=== PATIENT | male | born 2005 | race Caucasian/White ===

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

== ENCOUNTER 2025-02-06 19:46 | Emergency (ER) | payer BC, SELFPAY ==
[2025-02-06] VITALS (11 sets, daily range): BP systolic 101–102; BP diastolic 65–68; PULSE 50–81; RESP 11–20; TEMP 36.4–36.9; O2SAT 97–98; BMI 18.6
--- NOTE | 2025-02-06 20:04 | EKG12_ITS ---
Test Reason : DYSRHYTHMIA Blood Pressure : */* mmHG Vent. Rate : 63 BPM Atrial Rate : 63 BPM P-R Int : 172 ms QRS Dur : 92 ms QT Int : 448 ms P-R-T Axes : 66 112 64 degrees QTcB Int : 458 ms Normal sinus rhythm Right axis deviation Incomplete right bundle branch block Abnormal ECG Confirmed by Kevin Cazares ([id number]), editor sound LACIE JOHN ([id number]) on 02/07/2025 1:30:56 PM Referred By: Confirmed By: Kevin Cazares
[2025-02-06 20:44] LABS: Hematocrit 41.9 % (40-54); Hemoglobin 14.6 g/dL (13.0-16.5); Immature Granulocytes Count 0.020 X10^3/uL (0.0-0.0); Mean Corp Hgb Conc 34.8 g/dL (32-36); Mean Corpuscular Volume 86.9 fL (80-94); Mean Platelet Vol. 9.7 fl (6.2-12.0); NRBC Flagged by Analyzer 0 % (0-5); Platelet Count 273 K/mm3 (150-450); RBC Distribution Width CV 11.7 % (11.6-14.6); RBC Distribution Width SD 37.4 fl (35.1-43.9); Red Blood Count 4.82 M/mm3 (4.6-6.2); White Blood Count 6.8 K/mm3 (4.4-11.0)
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
--- NOTE | 2025-02-06 21:12 | EX.ED.VIS.PS ---
HPI HPI - Psych History of Present Illness Chief Complaint: Overdose Informant: patient and parent Onset/Context/Timing Onset: Today Context: Gradual Onset Conflict: Family Current Severity: Moderate Maximum Severity: Moderate Associated Symptoms Associated Symptoms - Psych: Positive for Depressed and Suicidal Thoughts Specific plan (suicidal thought): Attempted overdose today. Narrative Narrative: 19-year-old male history of depression recently was admitted to [facility] earlier this month. Today got an argument with a family member. Said he was more depressed. He tried to overdose on 6 Zofran and about 9 trazodone about 3 hours ago. Around 6 PM. Denies any nausea or vomiting. Denies any prior overdose attempts. Prior similar symptoms: Yes Recent Illness/Hospitalization: Yes [facility] Medical History Depression Physical exam, pre-employment Home Medications ?Medication ?Instructions ?Recorded ?Last Taken ?Type sertraline 50 mg tablet 50 mg PO DAILY depressive disorder 02/06/25 Unknown History Allergy/AdvReac Type Severity Reaction Status Date / Time No Known Allergies Allergy Verified 02/06/25 19:51 Social History Smoking Status: Never smoker ROS ROS ED ROS Narrative No recent illness. Constitutional Constitutional ED: Denies chills or fever(s) Eyes Eyes: Denies blurry vision ENT ENT ED: Denies ear pain Cardiovascular Cardiovascular: Denies chest pain Respiratory/Chest Respiratory/Chest: Denies cough or dyspnea Gastrointestinal Gastrointestinal: Denies abdominal pain Genitourinary Genitourinary ED: Denies dysuria or hematuria Musculoskeletal Musculoskeletal: Denies arthralgias Integumentary Denies abscess Neurologic Neurologic: Denies headache(s) Psychiatric Psychiatric: Denies anxiety Endocrine Endocrinology: Denies polydipsia or polyphagia Hematologic/Lymphatic Hematologic/Lymphatic: Denies easy bleeding, easy bruising or lymphadenopathy Allergic/Immunologic Allergic/Immunologic ED: Denies mouth swelling, tongue swelling or urticaria EXAM Physical Exam Narrative Exam Narrative: 19-year-old male sitting upright in bed. Vital signs stable afebrile. No acute distress. Dad at bedside. H EENT exam pupils round react light. Moist mucous membranes. No trauma. Neck nontender. No trauma. No lymphadenopathy. Back nontender. Lungs clear to auscultation bilaterally. Heart regular rhythm no murmur. Chest wall ribs nontender. Abdomen soft nontender. Moving all 4 extremities. No track morris. Normal program/music director strength. Normal dorsi plantarflexion. No trauma. Nontender. Normal range of motion. Neurologically is awake alert. Answer questions following commands. Const Vital Signs: 02/06/25 19:48 02/06/25 20:57 02/06/25 21:00 Temperature 98.4 F Temperature Source Oral Pulse Rate 81 68 64 Respiratory Rate 16 19 H 14 Blood Pressure 102/68 Blood Pressure Mean 79 Pulse Ox 97 Oxygen Delivery Method Room Air 02/06/25 21:15 02/06/25 21:30 02/06/25 21:45 Temperature Temperature Source Pulse Rate 62 52 L 51 L Respiratory Rate 14 18 18 Blood Pressure Blood Pressure Mean Pulse Ox Oxygen Delivery Method 02/06/25 22:00 02/06/25 22:15 02/06/25 22:30 Temperature Temperature Source Pulse Rate 68 50 L 80 Respiratory Rate 19 H 20 H 11 L Blood Pressure Blood Pressure Mean Pulse Ox Oxygen Delivery Method 02/06/25 22:45 02/06/25 22:56 Temperature 97.6 F L Temperature Source Pulse Rate 60 64 Respiratory Rate 13 18 Blood Pressure 101/65 101/65 Blood Pressure Mean 77 77 Pulse Ox 98 Oxygen Delivery Method Positive well nourished and well developed; Negative for obese, cachectic, contractures or unkempt General Appearance ED: well developed and NAD; Negative for unkempt, cachectic, contractures or pallor Nutritional Appearance: Negative for cachectic or obese HEENT Reports moist mucous membranes normocephalic and atraumatic Eyes PERRL and EOMs intact bilaterally Neck no lymphadenopathy, supple and no JVD General: Negative for tenderness Resp normal respiratory effort and clear to auscultation bilaterally Cardio S1 normal heart sound, S2 normal heart sound and no murmurs Rate: regular rate Rhythm: regular rhythm GI non-tender, non-distended and no masses Auscultation: normoactive bowel sounds Palpation: soft; Negative for tender or guarding Back/Spine no CVA tenderness General Back: Negative for CVA tenderness Cervical Spine: Negative for cervical spine tenderness Thoracic Spine / Upper Back: Negative for thoracic spinal tenderness Lumbar Spine / Lower Back: Negative for lumbar spinal tenderness Extremity normal to inspection General Extremety ED: Negative for edema or tenderness General Extremity: Negative for edema Neuro oriented x3, CN's II-XII intact bilaterally and no sensory deficits noted Sensorium / Orientation: alert, oriented to person, oriented to place and oriented to time Motor Exam: strength 5/5 throughout Psych mental status grossly normal, thought process normal, cooperative, speech normal, activity/motor behavior normal, denies hallucinations and denies homicidal ideation; Negative for denies suicidal ideation Appearance: grossly normal; Negative for unkempt Attitude: calm and engaged Activity / Motor Behavior: appropriate eye contact Speech: normal speech Mood & Affect: depressed Thought Process: normal thought process Thought Content: suicidality Attention / Concentration: attention grossly intact Memory / Cognition: memory grossly intact Insight: insight good Judgement: judgement good Skin General Skin Exam: Negative for jaundice or pallor Lesions: no lesions Rashes: no rashes MDM MDM MDM Narrative Medical decision making narrative: 19-year-old male history of depression and recent psychiatric admission. Nani attempted overdose on Zofran trazodone 3 hours ago. He is medically stable. ED mental health workup. And eventual admission for psychiatric care. Our high school social studies teacher is already seen him. She agrees with the admission. Repeat exam patient is doing well at 11 PM. Transfer is coming to take him to psychiatric facility for admission. Vital signs are stable and afebrile. His current blood pressure is 101/65 with a heart rate of 64. History & Record Review Discussion w/independent historian: Patient and Family Additional record(s) reviewed:: Prior inpatient record, Prior outpatient record, Prior ED visit and Prior labs Lab Data Attestation: I reviewed the patient's lab results. Lab results narrative: CBC shows a white count of 6. H&H 14 and 41. Platelets 273. Chemistries show gap 14. Normal BUN and creatinine. Glucose 109. Salicylates less than 0.5. Tox screen negative except positive for possible cannabis. Acetaminophen 14. Alcohol negative. Labs: Laboratory Results - last 24 hr 02/06/25 02/06/25 19:25 20:25 WBC 6.8 RBC 4.82 Hgb 14.6 Hct 41.9 MCV 86.9 MCH 30.3 MCHC 34.8 RDW Std Deviation 37.4 RDW Coeff of Elena 11.7 Plt Count 273 MPV 9.7 Immature Gran % (Auto) 0.300 Neut % (Auto) 71.7 H Lymph % (Auto) 19.4 [place] % (Auto) 6.9 Eos % (Auto) 1.0 Baso % (Auto) 0.7 Absolute Neuts (auto) 4.9 Absolute Lymphs (auto) 1.31 Nucleated RBC % 0 Sodium 139 Potassium 3.7 Chloride 103 Carbon Dioxide 22.4 Anion Gap 14 BUN 9 Creatinine 0.92 Estim Creat Clear Calc 113.07 Est GFR (MDRD) Non-Af 122 BUN/Creatinine Ratio 9.8 L Glucose 109 H Calcium 9.4 Salicylates < 0.5 L Urine Opiates Screen NEGATIVE U Buprenorphine Qual NEGATIVE Ur Oxycodone Screen NEGATIVE Urine Methadone Screen NEGATIVE Urine Fentanyl Screen NEGATIVE Acetaminophen 14.8 Ur Barbiturates Screen NEGATIVE Ur Phencyclidine Scrn NEGATIVE Ur Amphetamines Screen NEGATIVE U Benzodiazepines Scrn NEGATIVE Urine Cocaine Screen NEGATIVE U Cannabinoids Screen PRESUMPTIVE POSITIVE Ethyl Alcohol < 10.1 Rhythm Strip Rhythm Strip: Sinus Rhythm Rate: 63 Ectopy: None EKG Initial EKG: Attestation: I personally reviewed and interpreted this EKG as follows: Interpretation: Sinus Rhythm and No Acute Injury Pattern Comments: Normal sinus rhythm rate of 63 no acute signs of [place] or ischemia. Discharge Plan Triage Chief Complaint: Overdose Other Complaint: Suicidal ED Provider: Yifan Wills Dx/Rx/DC Orders Clinical Impression: Depression, Depression with suicidal ideation, Overdose Prescriptions: No Action sertraline 50 mg tablet 50 mg PO DAILY Primary Care Provider: Care Physician,No Primary Referrals: Birdie Martinez MD [Non-Staff] - Print Language: Divehi Disposition Disposition: Psychiatric Hospital or Unit
[2025-02-06 21:20] LABS: Barbiturate Urine NEGATIVE (< 200 ng/mL); Benzodiazepine Urine NEGATIVE (< 200 ng/mL); PCP Urine NEGATIVE (< 25 ng/mL); THC Urine PRESUMPTIVE POSITIVE (< 50 ng/mL)
[2025-02-06 21:20] LABS: Acetaminophen (Tylenol) Level 14.8 ug/mL (8.0-19.0); Alcohol, Blood (Medical)-Serum < 10.1 mg/dL (<=10.0); Salicylate < 0.5 mg/dL (2.8-20.0)
[2025-02-06 21:21] LABS: Anion Gap 14 (5-15); BUN 9 mg/dL (4-19); BUN/Creat Ratio 9.8 RATIO (10-20); Calcium,Total 9.4 mg/dL (7.6-11.0); Carbon Dioxide 22.4 mmol/L (21.0-32.0); Chloride 103 mmol/L (98-108); Estimated Creatinine Clearance 113.07 ml/min (50-250); Glucose 109 mg/dL (70-99); Potassium 3.7 mmol/L (3.3-5.1)
--- OUTSIDE RECORDS SUMMARY | 2025-02-06 21:37 | XMS RPT_ITS | CCD ---
Author Organization [facility] Inform ion Partnership [facility] [place] Care Team Providers Care Direct Mail Clerk Name Role Phone Birdie Martinez Primary Care Provider [phone] DARLIN HODGES Primary Care Unavailable REFERRED, SELF Referring Unavailable HERBERT BAHENA Attending Unavailable BIRDIE MARTINEZ Attending Unavailable REFERRED, SELF Referring Unavailable DARLIN HODGES Primary Care Unavailable Birdie Martinez MD Primary Care Provider Birdie Martinez MD Primary Care Provider [phone] Aj Martin Attending Unavailable Birdie Martinez Referring Unavailable Birdie Martinez Primary Care Unavailable Birdie Martinez Referring Unavailable Birdie Martinez Primary Care Unavailable Aj Martin Attending Unavailable JULI Graff, EBNY Attending Unavailable BRYCE CRUZ Referring Unavailable BIRDIE MARTINEZ Primary Care Unavailable BRYCE CRUZ Referring Unavailable BIRDIE MARTINEZ Primary Care Unavailable BRYCE CRUZ Referring Unavailable BIRDIE MARTINEZ Primary Care Unavailable BIRDIE MARTINEZ Primary Care Unavailable BIRDIE MARTINEZ Primary Care Unavailable ANN SIEGEL Referring Unavailable BIRDIE MARTINEZ Primary Care Unavailable BIRDIE MARTINEZ Primary Care Unavailable BIRDIE MARTINEZ Primary Care Unavailable JULI Graff, BENY Referring Unavailable BIRDIE MARTINEZ Primary Care Unavailable JULI Graff, BENY Attending Unavailable BIRDIE MARTINEZ Primary Care Unavailable JULI Graff, BENY Referring Unavailable BIRDIE MARTINEZ Primary Care Unavailable JULI Graff, BENY Attending Unavailable JULI Graff, BENY Referring Unavailable BIDRIE MARTINEZ Primary Care Unavailable Nithin Galvin MD Emergency Provider Care Physician, No Primary Primary Care Provider Unavailable Nithin Galvin Attending Unavailable Care Physician, No Primary Primary Care Unava ilable Medications Current Medications Medication Drug Class(es) Dates Sig (Normalized) Sig (Original) [id number] 200 actuat albuterol 0.09 mg/actuat metered dose inhaler (1 source) beta2-Adrenergic Agonist Start: 07-26-2019 End: 03-17-2022 take 2 puff(s) by inhalation every four hours as needed albuterol HFA (PROVENTIL HFA, VENTOLIN HFA) 90 mcg/actuation inhaler Indications: Bronchitis Inhale 2 Puffs as instructed every 4 hours as needed. 1 Inhaler 0 07/26/2019 03/17/2022 Discontinued Comment on above: Inhale 2 Puffs as in structed every 4 hours as needed. amoxicillin 875 mg oral tablet (1 source) Penicillin-class Antibacterial Start: 05-24-2024 End: 06-03-2024 take 1 tablet by mouth twice daily amoxicillin (AMOXIL) 875 mg tablet Indications: Acute otitis media, left Take 1 tablet by mouth two times a day for 10 days. 20 tablet 05/24/2024 06/03/2024 Active brompheniramine maleate 0.4 mg/ml / dextromethorphan hydrobromide 2 mg/ml / pseudoephedrine hydrochloride 6 mg/ml oral solution (1 source) alpha-Adrenergic Agonist, Uncompetitive P-uxrmwz-H-aspartat e Receptor Antagonist, Sigma-1 Agonist Start: 05-24-2024 take 10 mL by mouth every eight hours as needed Brompheniramine-P seudoeph-DM (BROMFED DM) 2-30-10 mg/5 mL syrup Indications: Viral upper respiratory tract infection with cough Take 10 mL by mouth every 8 hours as needed. 118 mL 05/24/2024 Active fluticasone propionate 0.05 mg/actuat metered dose nasal spray (1 source) Corticosteroid Start: 05-24-2024 take 2 spray(s) by mouth once daily fluticasone (FLONASE) 50 mcg/actuation nasal spray Indications: Viral upper respiratory tract infection with cough Use 2 Sprays in each nostril once daily. Rinse mouth after use. 9.9 mL 05/24/2024 Active Completed/Discontinued Medications Medication Drug Class(es) Dates Sig (Normalized) Sig (Original) cephalexin 500 mg oral capsule (14 sources) Cephalosporin Antibacterial Start: 03-18-2022 End: 05-24-2024 take 1 capsule by mouth three times daily cephALEXin (KEFLEX) 500 mg capsule Indications: Foreign body (FB) in soft tissue Take 1 capsule by mouth three times daily. 21 capsule 03/18/2022 05/24/2024 Discontinued Comment on above: Take [facility]. naproxen 500 mg oral tablet (5 sources) Nonsteroidal Anti-inflammatory Drug Start: 10-12-2023 End: 05-24-2024 take 1 tablet by mouth twice daily as needed for pain naproxen (NAPROSYN) 500 mg tablet Indications: Pain, dental Take 1 tablet by mouth two times a day as needed for pain (for pain/inflammation) for up to 20 doses. Take with food. 20 tablet 10/12/2023 05/24/2024 Discontinued Comment on above: Take 1 tablet by tim two times a day as needed for pain (for pain/inflammation) for up to 20 doses. Take with food. Problems Active Problems Problem Classification Problem Date Documented Da te Episodic/Chronic Disorders of teeth and jaw (1 source) Toothache; Translations: [Other specified disorders of teeth and supporting structures] 10-12-2023 Episodic Headache; including migraine (2 sources) Headache; Translations: [Headache, unspecified headache type] 04-06-2024 Episodic Headache; including migraine (1 source) Headache; including migraine; Translations: [Headache, unspecified headache type] Onset: 04-06-2024 Open wounds of extremities (2 sources) Puncture wound of left foot; Translations: [Puncture wound without foreign body, left foot, initial encounter] Episodic Other connective tissue disease (1 source) Foreign body; Translations: [Residual foreign body in soft tissue] Episodic Other injuries and conditions due to external causes (1 source) Thumb injury ; Translations: [Unspecified injury of right wrist, hand and finger(s), initial encounter] Episodic Other injuries and conditions due to external causes (1 source) Injury of left wrist; Translations: [Unspecified injury of left wrist, hand and finger(s), initial encounter] 08-04-2023 Episodic Other injuries and conditions due to external causes (1 source) Injury of left ankle; Translations: [Unspecified injury of left ankle, initial encounter] 08-04-2023 Episodic Other upper respiratory infections (3 sources) Sore throat symptom; Translations: [Acute pharyngitis, unspecified] 04-06-2024 Episodic Otitis media and related conditions (1 source) Acute left otitis media; Translations: [Otitis media, unspecified, left ear] 05-24-2024 Episodic Suicide and intentional self-inflicted injury (1 source) Suicidal ideations; Translations: [Suicidal ideations] Onset: 01-25-2025 Episodic Past or Other Problems Problem Classification Problem Date Documented Date Episodic/Chronic Administrative/social admission (1 source) Encounter for pre-employment examination; Translations: [Encounter for pre-employment examination] Onset: 01-27-2024 Episodic Fracture of upper limb (6 sources) Closed fracture distal radius, intra-articular, -punch; Translations: [Other intraarticular fracture of lower end of left radius, subsequent encounter for closed fracture with routine healing] Onset: 08-07-2023 08-28-2023 Episodic Other injuries and conditions due to external causes (1 source) Unspecified injury of left ankle, initial encounter; Translations: [Left ankle injury, initial encounter] Onset: 08-04-2023 Episodic Other injuries and conditions due to external causes (1 source) Unspecified injury of left wrist, hand and finger(s), initial encounter; Translations: [Wrist injury, left, initial encounter] Onset: 08-04-2023 Episodic Results Test Name Value Interpretation Reference Range Facility Absolute lymphocyte countOrd ered By: Nithin Galvin on 01-17-2025 Lymphocytes Auto (Unsp spec) [#/Vol] 1.33 10*3/uL 0.83-4.51 [facility] Absolute neutrophil countOrd ered By: Nithin Galvin on 01-17-2025 Neutrophils (Bld) [#/Vol] 2.5 10*3/uL 2.0-7.7 [facility] Alcohol, Blood (Medical)-Ser umon 01-17-2025 SERUM ETOH < 10.1 Normal <=10.0 [facility] Comment on above: Result Comment: This test is for medical purposes only. The legal definition of intoxication varies according to local law. Performed By: #### L 500.4050, L100.0100, L501.9100, L505.5000 #### [facility] [address] [place], [place] [address]. [place], [place], [id number] Amphetamine detection with 1 000 ng/mL as cutoffOrdered By: Nithin Galvin on 01-17-2025 Amphetamines Screen method >1000 ng/mL Ql (U) Negative < 200 ng/mL [facility] Anion gap in Serum or Plasma Ordered By: Nithin Galvin on 01-17-2025 Anion gap [Moles/Vol] 13 mmol/L 5- [facility] Automated lymphocyte count a s percentage of total leukocytesOrdered By: Nithin Galvin on 01-17-2025 Lymphocytes/100 WBC Auto (Unsp spec) 30.2 % - [facility] BUN/creatinine ratioOrdered By: Nithin Galvin on 01-17-2025 Urea nitrogen/Creatinine [Mass ratio] 11.4 mg/mg 10- [facility] Basophil percentageOrdered B y: Nithin Galvin on 01-17-2025 Basophils/100 WBC (Bld) 1.1 % High 0-1 [facility] Bilirubin, totalOrdered By: Nithin Galvin on 01-17-2025 Bilirubin [Mass/Vol] 1.86 mg/dL High 0.00-1.30 [facility] CBC W/Diff, Automatedon Absolute Lymph 1.33 X10 3/uL Normal 0.83-4.51 [facility] Comment on above: Performed By: #### L 500.4050, L100.0100, L501.9100, L505.5000 #### [facility] [address] [facility] [address] Absolute Neut 2.5 X10 3/uL Normal 2.0-7.7 [facility] Comment on above: Performed By: #### L 500.4050, L100.0100, L501.9100, L505.5000 #### [facility] [address] [place], [address] Basophils/100 WBC (Bld) 1.1 % High 0-1 [facility] Comment on above: Performed By: #### L 500.4050, L100.0100, L501.9100, L505.5000 #### [facility] [address] [place], [address] Eosinophils/100 WBC (Bld) 0.9 % Normal 0-5 [facility] Comment on above: Performed By: #### L 500.4050, L100.0100, L501.9100, L505.5000 #### [facility] [address] [place], [address] Erythrocyte distribution width (RBC) [Ratio] 11.7 % Normal 11.6-14.6 [facility] Comment on above: Performed By: #### L 500.4050, L100.0100, L501.9100, L505.5000 #### [facility] [address] [place], [address] Hematocrit (Bld) [Volume fraction] 45.3 % Normal 40-54 [facility] Comment on above: Performed By: #### L 500.4050, L100.0100, L501.9100, L505.5000 #### [facility] [address] [place], [address] Hemoglobin (Bld) [Mass/Vol] 15.6 g/dL Normal 13.0-16.5 [facility] Comment on above: Performed By: #### L 500.4050, L100.0100, L501.9100, L505.5000 #### [facility] [address] [place], [address] IG% 0.500 Normal 0.0-0.9 [facility] Comment on above: Result Comment: IG% - Immature Granulocytes (promyelocytes, myelocytes and metamyelocytes) > 1% indicates that a LEFT SHIFT is Present. Performed By: #### L 500.4050, L100.0100, L501.9100, L505.5000 #### [facility] [address] [place], [address] Lymphocytes/100 WBC (Bld) 30.2 % Normal 19-41 [facility] Comment on above: Performed By: #### L 500.4050, L100.0100, L501.9100, L505.5000 #### [facility] [address] [place], [address] MCH (RBC) [Entitic mass] 30.4 pg Normal 27.0-32.0 [facility] Comment on above: Performed By: #### L 500.4050, L100.0100, L501.9100, L505.5000 #### [facility] [address] [place], [address] MCHC (RBC) [Mass/Vol] 34.4 g/dL Normal 32-36 [facility] Comment on above: Performed By: #### L 500.4050, L100.0100, L501.9100, L505.5000 #### [facility] [address] [place], [address] MCV (RBC) [Entitic vol] 88.1 fL Normal 80-94 [facility] Comment on above: Performed By: #### L 500.4050, L100.0100, L501.9100, L505.5000 #### [facility] [address] [place], [address] Monocytes/100 WBC (Bld) 10.4 % High 0-10 [facility] Comment on above: Performed By: #### L 500.4050, L100.0100, L501.9100, L505.5000 #### [facility] [address] [place], [address] Neutrophils/100 WBC (Bld) 56.9 % Normal 47-70 [facility] Comment on above: Performed By: #### L 500.4050, L100.0100, L501.9100, L505.5000 #### [facility] [address] [place], [address] Nucleated RBC (Bld) [#/Vol] 0 10*3/uL Normal 0-5 [facility] Comment on above: Performed By: #### L 500.4050, L100.0100, L501.9100, L505.5000 #### [facility] [address] [place], [address] Platelet mean volume (Bld) [Entitic vol] 9.5 fL Normal 6.2-12.0 [facility] Comment on above: Performed By: #### L 500.4050, L100.0100, L501.9100, L505.5000 #### [facility] [address] [place], [address] Platelets (Bld) [#/Vol] 241 10*3/uL Normal 150-450 [facility] Comment on above: Performed By: #### L 500.4050, L100.0100, L501.9100, L505.5000 #### [facility] [address] [place], [address] RBC (Bld) [#/Vol] 5.14 10*6/uL Normal 4.6-6.2 [facility] Comment on above: Performed By: #### L 500.4050, L100.0100, L501.9100, L505.5000 #### [facility] [address] [place], [address] RDW SD 37.8 fl Normal 35.1-43.9 [facility] Comment on above: Performed By: #### L 500.4050, L100.0100, L501.9100, L505.5000 #### [facility] [address] [place], [address] WBC (Bld) [#/Vol] 4.4 10*3/uL Normal 4.4-11.0 [facility] Comment on above: Performed By: #### L 500.4050, L100.0100, L501.9100, L505.5000 #### [facility] [address] [place], [address] Carbon dioxide, total [Moles /volume] in Central venous bloodOrdered By: Nithin Galvin on 01-17-2025 CO2 [Moles/Vol] 24.2 mmol/L 21.0-32.0 [facility] Chloride assayOrdered By: Koffi Galvin on 01-17-2025 Chloride [Moles/Vol] 99 mmol/L 98-108 [facility] Comprehensive Metabolic Prof ilon 01-17-2025 Albumin [Mass/Vol] 4.9 g/dL Normal 3.5-5.0 [facility] Comment on above: Performed By: #### L 500.4050, L100.0100, L501.9100, L505.5000 #### [facility] [address] [place], [address] Albumin/Globulin [Mass ratio] 1.8 {ratio} Normal 0.9-2.4 [facility] Comment on above: Performed By: #### L 500.4050, L100.0100, L501.9100, L505.5000 #### [facility] [address] [place], [address] ALK PHOS 72 U/L Normal 40-129 [facility] Comment on above: Performed By: #### L 500.4050, L100.0100, L501.9100, L505.5000 #### [facility] [address] [place], [address] ALT [Catalytic activity/Vol] U/L Normal <=46 [facility] Comment on above: Performed By: #### L 500.4050, L100.0100, L501.9100, L505.5000 #### [facility] [address] [place], [address] AST [Catalytic activity/Vol] 17 U/L Normal <=37 [facility] Comment on above: Performed By: #### L 500.4050, L100.0100, L501.9100, L505.5000 #### [facility] [address] [place], [address] Bilirubin [Mass/Vol] 1.86 mg/dL High 0.00-1.30 [facility] Comment on above: Performed By: #### L 500.4050, L100.0100, L501.9100, L505.5000 #### [facility] [address] [place], [address] BUN/CRE 11.4 RATIO Normal 10-20 [facility] Comment on above: Performed By: #### L 500.4050, L100.0100, L501.9100, L505.5000 #### [facility] [address] [place], [address] Calcium [Mass/Vol] 9.3 mg/dL Normal 7.6-11.0 [facility] Comment on above: Performed By: #### L 500.4050, L100.0100, L501.9100, L505.5000 #### [facility] [address] [place], [address] Chloride [Moles/Vol] 99 mmol/L Normal 98-108 [facility] Comment on above: Performed By: #### L 500.4050, L100.0100, L501.9100, L505.5000 #### [facility] [address] [place], [address] CO2 [Moles/Vol] 24.2 mmol/L Normal 21.0-32.0 [facility] Comment on above: Performed By: #### L 500.4050, L100.0100, L501.9100, L505.5000 #### [facility] [address] [place], [address] Creatinine [Mass/Vol] 1.02 mg/dL Normal 0.70-1.20 [facility] Comment on above: Performed By: #### L 500.4050, L100.0100, L501.9100, L505.5000 #### [facility] [address] [place], [address] ECRCL 104.58 ml/min Normal 50-250 [facility] Comment on above: Performed By: #### L 500.4050, L100.0100, L501.9100, L505.5000 #### [facility] [address] [place], [address] GAP 13 Normal 5-15 [facility] Comment on above: Performed By: #### L 500.4050, L100.0100, L501.9100, L505.5000 #### [facility] [address] [place], [address] GFR/1.73 sq M.predicted among non-blacks MDRD (S/P/Bld) [Vol rate/Area] 108 mL/min/{1.73_m2} Normal >60 [facility] Comment on above: Result Comment: mL/m in/1.73m2 CKD-EPI Creatinine Equation (2020) Performed By: #### L 500.4050, L100.0100, L501.9100, L505.5000 #### [facility] [address] [place], [address] Globulin (S) [Mass/Vol] 2.8 g/dL Normal 2.2-4.2 [facility] Comment on above: Performed By: #### L 500.4050, L100.0100, L501.9100, L505.5000 #### [facility] [address] [place], [address] Glucose [Mass/Vol] 86 mg/dL Normal 70-99 [facility] Comment on above: Performed By: #### L 500.4050, L100.0100, L501.9100, L505.5000 #### [facility] [address] [place], [address] Potassium [Moles/Vol] 4.0 mmol/L Normal 3.3-5.1 [facility] Comment on above: Performed By: #### L 500.4050, L100.0100, L501.9100, L505.5000 #### [facility] [address] [place], [address] Sodium [Moles/Vol] 136 mmol/L Normal 133-145 [facility] Comment on above: Performed By: #### L 500.4050, L100.0100, L501.9100, L505.5000 #### [facility] [address] [place], [address] T PROT 7.6 g/dL Normal 5.9-8.4 [facility] Comment on above: Performed By: #### L 500.4050, L100.0100, L501.9100, L505.5000 #### [facility] [address] [place], [address] Urea nitrogen [Mass/Vol] 12 mg/dL Normal 4-19 [facility] Comment on above: Performed By: #### L 500.4050, L100.0100, L501.9100, L505.5000 #### [facility] [address] [place], [address] Emergency Department Summary on 01-17-2025 Emergency Department Summary [facility] Medical Records Department [address] [place] [address] Emergency Department Summary 01/17/25 MR#: [id number] Acct: [id number] Name: KETAN STEWART Rep #: [id number] : 2005 19 From: Nithin Galvin MD PCP: Care Physician,No Primary Status:REG ER Location: ED ADDENDUM by Dr. Nithin Galvin MD on 01/17/25 at 1715 I was informed that the patient has been accepted at [facility]. Patient will be transferred in stable condition. 01/17/25 1715 Cosigner Signature (if applicable): cc: No Primary Care Physician * Signed HPI HPI - Psych History of Present Illness Chief Complaint: Suicidal Narrative Narrative: 19-year-old male past medical history of depression and anxiety, not on medication, presents with his father because of increasing suicidal ideation. He relates this to a break-up that he had with his girlfriend recently. He was moving his things out of the house as he lived with her previously and is currently living with his grandmother. He states he saw something on her telephone which upset him. He has not been able to stop thinking about it. According to his dad, they called a primary care provider but he was unable to be seen because the patient had called him on Thursday, approximately 2 days ago, and he states that he was having thoughts of hurting himself. Additionally, patient relates history that about a month ago, he was upset and took more ibuprofen than he was supposed to. He has partial custody of his son and he was with him over the last 2 days, when the patient stated that he would not hurt himself while he had his son but was unsure what he might do when his son was not with him. He presents because of increasing suicidal ideation. Father reports that they called the counseling center, but he would not be able to be seen for at least 2 weeks. Patient states that he is having increasing thoughts of suicide, and while does not have a specific plan, that he would hurt himself in any way that he could. PFSH PFS Medical History Mental health problem Home Medications ???Medication ???Instructions ???Recorded ???Last Taken ???Type NK 01/17/25 Unknown History Allergy/AdvReac Type Severity Reaction Status Date / Time No Known Allergies Allergy Verified 01/17/25 12:03 Social History Smoking Status: Never smoker ROS ROS ED ROS Narrative Review of systems positive for increasing suicidal ideation, no specific plan. No somatic symptoms, no fevers or chills, no cough, no nausea or vomiting. Increasing depression. EXAM Physical Exam Narrative Exam Narrative: Afebrile. Vital signs noted. Nontoxic-appearing. Cardiovascular examination reveals mild bradycardia. Lungs clear to auscultation bilaterally. Abdomen is soft, nontender, without guarding or rebound. Positive bowel sounds. Neurological examination is nonfocal, nonlateralizing. Psychiatric examination shows he has more of a depressed, flat affect with thoughts of suicide but no specific plan. No internal stimulation, no active hallucinations. Const Vital Signs: 01/17/25 12:03 Temperature 97.1 F L Temperature Source Temporal Pulse Rate 51 L Respiratory Rate 14 Blood Pressure 130/70 H Blood Pressure Mean 90 Pulse Ox 100 Oxygen Delivery Method Room Air MDM MDM MDM Narrative Medical decision making narrative: Differential diagnosis includes but not limited to depression with suicidal thoughts versus suicidal ideation with plan. Medical clearance labs were obtained. I reviewed his laboratory work and they are grossly unremarkable including CBC and CMP except for total bili slightly elevated at 1.86 which I think is nonspecific and cannabinoids presumptive positive, but he states that he did use marijuana recently. Ethyl alcohol negative at less than 10.1. At this point in time, I feel he is medically cleared for evaluation. He may require admission as he states last time he took ibuprofen as an overdose but was never evaluated. He denies any previous hospitalization in a psychiatric facility. I reviewed his laboratory work and he has normal white count 4.4 with hemoglobin normal at 15.6, hematocrit 45.3. I do feel that he is medically cleared for evaluation by case management. In discussion with them, it was felt that given his increased suicidality, and his threats that he is unsure as to what would happen now that he does not have his son with him, they recommended placement. He is currently pending placement at psychiatric facility and will be signed out to the oncoming physician to ensure transfer. Patient is in stable condition. History Record Review Discussion w/independent historian: Patient and Fami (more content not included)... Normal [facility] Eosinophil percentageOrdered By: Nithin Galvin on 01-17-2025 Eosinophils/100 WBC (Bld) 0.9 % 0-5 [facility] Erythrocyte distribution wid th ratioOrdered By: Nithin Galvin on 01-17-2025 Erythrocyte distribution width (RBC) [Ratio] 11.7 % 11.6-14.6 [facility] Erythrocyte distribution wid th standard deviationOrdered By: Nithin Galvin on 01-17-2025 Erythrocyte distribution width (RBC) [Ratio] 37.8 fl 35.1-43.9 [facility] Glomerular filtration rate ( GFR) estimation/1.73 sq m using serum, plasma, or whole bOrdered By: Nithin Galvin on 01-17-2025 GFR/1.73 sq M.predicted among non-blacks MDRD (S/P/Bld) [Vol rate/Area] 108 mL/min/{1.73_m2} >60 [facility] Comment on above: mL/min/1.73m2 CKD-EP I Creatinine Equation (2020) Hematocrit Auto (Bld) [Volum e fraction]Ordered By: Nithin Galvin on 01-17-2025 Hematocrit (Bld) [Volume fraction] 45.3 % 40-54 [facility] Hemoglobin measurementOrdere d By: Nithin Galvin on 01-17-2025 Hemoglobin (Bld) [Mass/Vol] 15.6 g/dL 13.0-16.5 [facility] Immature granulocytes/100 WB C Auto (Bld)Ordered By: Nithin Galvin on 01-17-2025 Immature granulocytes/100 WBC (Bld) 0.500 % 0.0-0.9 [facility] Comment on above: IG% - Immature Granu locytes (promyelocytes, myelocytes and metamyelocytes) > 1% indicates that a LEFT SHIFT is Present. Laboratory - Chemistry and C hemistry - challengeOrdered By: Nithin Galvin on 01-17-2025 AST [Catalytic activity/Vol] 17 U/L <38 [facility] MCV (mean corpuscular volume ) determinationOrdered By: Nithin Galvin on 01-17-2025 MCV (RBC) [Entitic vol] 88.1 fL 80-94 [facility] Mean corpuscular hemoglobin (MCH) determinationOrdered By: Nithin Galvin on 01-17-2025 MCH (RBC) [Entitic mass] 30.4 pg 27.0-32.0 [place] Mean corpuscular hemoglobin concentration (MCHC) determinationOrdered By: Nithin Galvin on 01-17-2025 MCHC (RBC) [Mass/Vol] 34.4 g/dL 32-36 [facility] Mean platelet volume determi nationOrdered By: Nithin Galvin on 01-17-2025 Platelet mean volume (Bld) [Entitic vol] 9.5 fL 6.2-12.0 [place] Monocyte percentageOrdered B y: Nithin Galvin on 01-17-2025 Monocytes/100 WBC (Bld) 10.4 % High 0-10 [facility] Neutrophil percentageOrdered By: Nithin Galvin on 01-17-2025 Neutrophils/100 WBC (Bld) 56.9 % 47-70 [place] No Panel InformationOrdered By: Nithin Galvin on 01-17-2025 Urine Buprenorphine Qualitative Negative < 200 ng/mL [place] Urine Oxycodone Screen Negative < 100 ng/mL [facility] Nucleated red blood cell per centageOrdered By: Nithin Galvin on 01-17-2025 Nucleated RBC/100 WBC (Bld) [Ratio] 0 % 0-5 [place] Platelet countOrdered By: Koffi Galvin on 01-17-2025 Platelets (Bld) [#/Vol] 241 10*3/uL 150-450 [place] Potassium measurement (mass/ volume)Ordered By: Nithin Galvin on 01-17-2025 Potassium (Unsp spec) [Mass/Vol] 4.0 mmol/L 3.3-5.1 [place] Quantitative urine opiates m easurementOrdered By: Nithin Galvin on 01-17-2025 Opiates Ql (U) Negative < 300 ng/mL [place] RBC Auto (Bld) [#/Vol]Ordere d By: Nithin Galvin on 01-17-2025 RBC (Bld) [#/Vol] 5.14 10*6/uL 4.6-6.2 [facility] Screening urine fentanyl lucy surementOrdered By: Nithin Galvin on 01-17-2025 fentaNYL Screen Ql (U) Negative [facility] Serum creatinine measurement (mass/volume)Ordered By: Nithin Galvin on 01-17-2025 Creatinine [Mass/Vol] 1.02 mg/dL 0.70-1.20 [facility] Serum globulin measurementOr dered By: Nithin Galvin on 01-17-2025 Globulin (S) [Mass/Vol] 2.8 g/dL 2.2-4.2 [facility] Serum glucose measurement (m ass/volume)Ordered By: Nithin Galvin on 01-17-2025 Glucose [Mass/Vol] 86 mg/dL 70-99 [facility] Serum or plasma alanine mccartney otransferase (ALT) measurementOrdered By: Nithin Galvin on 01-17-2025 ALT [Catalytic activity/Vol] U/L <47 [place] Serum or plasma albumin chun urement (mass/volume)Ordered By: Nithin Galvin on 01-17-2025 Albumin [Mass/Vol] 4.9 g/dL 3.5-5.0 [facility] Serum or plasma albumin/glob ulin mass ratioOrdered By: Nithin Galvin on 01-17-2025 Albumin/Globulin [Mass ratio] 1.8 {ratio} 0.9-2.4 [place] Serum or plasma alkaline lise sphatase measurementOrdered By: Nithin Galvin on 01-17-2025 ALP [Catalytic activity/Vol] 72 U/L 40-129 [place] Serum or plasma calcium chun urement (mass/volume)Ordered By: Nithin Galvin on 01-17-2025 Calcium [Mass/Vol] 9.3 mg/dL 7.6-11.0 [facility] Serum or plasma ethanol chun urement (mass/volume)Ordered By: Nithin Galvin on 01-17-2025 Ethanol [Mass/Vol] mg/dL <10.1 [facility] Comment on above: This test is for med ical purposes only. The legal definition of intoxication varies according to local law. Serum or plasma urea nitroge n measurement (mass/volume)Ordered By: Nithin Galvin on 01-17-2025 Urea nitrogen [Mass/Vol] 12 mg/dL 4-19 [place] Sodium levelOrdered By: Nithin Galvin on 01-17-2025 Sodium [Moles/Vol] 136 mmol/L 133-145 [facility] Total proteinOrdered By: Celeste Galvin on 01-17-2025 Protein [Mass/Vol] 7.6 g/dL 5.9-8.4 [facility] Urine Drug Screen (VISTA)on 01-17-2025 AMPHETAMINES Negative Normal <1000 ng/mL [place] Comment on above: Performed By: #### L 500.4050, L100.0100, L501.9100, L505.5000 #### [facility] [address] [place], [address] BARBITIURATES Negative Normal < 200 ng/mL [place] Comment on above: Performed By: #### L 500.4050, L100.0100, L501.9100, L505.5000 #### [facility] [address] [place], [address] BENZODIAZIPINE Negative Normal < 200 ng/mL [place] Comment on above: Performed By: #### L 500.4050, L100.0100, L501.9100, L505.5000 #### [facility] [address] [place], [address] BUP Ur Drug Scr Negative Normal < 200 ng/mL [place] Comment on above: Performed By: #### L 500.4050, L100.0100, L501.9100, L505.5000 #### [facility] [address] [place], [address] COCAINE Negative Normal < 300 ng/mL [place] Comment on above: Performed By: #### L 500.4050, L100.0100, L501.9100, L505.5000 #### [facility] [address] [place], [address] Fentanyl Negative Normal [place] Comment on above: Performed By: #### L 500.4050, L100.0100, L501.9100, L505.5000 #### [facility] [address] [place], [address] METHADONE Negative Normal < 300 ng/mL [place] Comment on above: Performed By: #### L 500.4050, L100.0100, L501.9100, L505.5000 #### [facility] [address] [place], [address] OPIATES Negative Normal < 300 ng/mL [place] Comment on above: Performed By: #### L 500.4050, L100.0100, L501.9100, L505.5000 #### [facility] [address] [place], [address] OXYCODONE Negative Normal < 100 ng/mL [place] Comment on above: Performed By: #### L 500.4050, L100.0100, L501.9100, L505.5000 #### [facility] [address] [place], [address] PCP Negative Normal < 25 ng/mL [place] Comment on above: Performed By: #### L 500.4050, L100.0100, L501.9100, L505.5000 #### [facility] [address] [place], [address] THC Positive Normal < 50 ng/mL [place] Comment on above: Result Comment: If c onfirmation testing is needed, a separate order will be required to send out testing to the reference laboratory. Performed By: #### L 500.4050, L100.0100, L501.9100, L505.5000 #### [place] [facility] [address] [place], [address] Urine benzodiazepine levelOr dered By: Nithin Galvin on 01-17-2025 Benzodiazepines Ql (U) Negative < 200 ng/mL [facility] Urine cocaine levelOrdered B y: Nithin Galvin on 01-17-2025 Cocaine Ql (U) Negative < 300 ng/mL [place] Urine igyvo-9-qmmyearjeyceli abinol (THC) measurementOrdered By: Nithin Galvin on 01-17-2025 Cannabinoids Screen Ql (U) Positive < 50 ng/mL [place] Comment on above: If confirmation test ing is needed, a separate order will be required to send out testing to the reference laboratory. Urine phencyclidine (PCP) de tectionOrdered By: Nithin Galvin on 01-17-2025 Phencyclidine Ql (U) Negative < 25 ng/mL [facility] White blood cell (WBC) count Ordered By: Nithin Galvin on 01-17-2025 WBC (Bld) [#/Vol] 4.4 10*3/uL 4.4-11.0 [facility] CNOVon 05-24-2024 CNOV Office Visit ([facility] ) KETAN STEWART ([id number]) 3 M Date Time Provider Department 05/24/24 1:45 PM [facility] During your visit today, we recorded the following information about you: Temperature Pulse Respiration Blood pressure 98 degrees 80/minute 16/minute 106/60 Weight 67.9 kg June Zhang APRN.[employer] 05/24/2024 1:51 PM Addendum (J02.9) Pharyngitis, unspecified etiology (primary encounter diagnosis) (J06.9) Viral upper respiratory tract infection with cough Plan: Brompheniramine-Pseud oeph-DM (BROMFED DM) 2-30-10 mg/5 mL syrup, fluticasone (FLONASE) 50 mcg/actuation nasal spray (H66.92) Acute otitis media, left Plan: amoxicillin (AMOXIL) 875 mg tablet Education on viral vs bacterial infections. Most viral infections will last 10 days, sometimes 14. It is possible to have back to back viral infections. An antibiotic will not treat a virus. -Viral symptoms for almost 1 week, now with left otitis media, will treat with amoxicillin for the ear. -Bromfed for cough/congestion. -Drink lots of fluids and get plenty of rest. Gargle with salt water 3 times/day. -Vaporizers, cool mist humidifiers, warm showers, and warm fluids help open respiratory and sinus passages. Clean humidifiers daily. -OTC tylenol/ibuprofen as directed on the bottle. -Saline nasal spray as needed. Flonase twice daily can help reduce inflammation through the sinus cavities. -Make follow up with primary care for monitoring and resolution in symptoms. -Signs that warrant an ER evaluation: Sudden change/worsening in condition, lethargy, signs of dehydration, fever greater than 102 F that is not responding to Tylenol or ibuprofen (Motrin, Advil), drooling, difficulty swallowing, difficulty breathing, shortness of breath, chest pain, evidence of airway compromise (tripod position, neck extension, retractions), seizures, changes in mental status, or other concerns. June Zhang APRN.[employer] 05/24/2024 1:55 PM Signed This note was created using GloPos Technologyriter. Subjective Ketan Stewart is a 18 year old male. HPI by patient: Ketan Stewart is a 18 year old presenting to the office with the complaint of viral symptoms. Started approximately 6 days ago, last Thursday. Associated symptoms include sore throat, cough, congestion, headache, fatigue, and ear pressure. Denies fever. Covid Immunization Dates Overdue - Covid-19 Vaccine ( season) Overdue since 03/20/2024 08/15/2021 Imm Admin: COVID-19 original vaccine, age 12+ yr, monovalent (PFIZER-BIONTECH - IBANEZ TOP) 11/30/2020 Imm Admin: COVID-19 original vaccine, age 12+ yr, monovalent (PFIZER-BIONTECH - PURPLE TOP) 11/09/2020 Imm Admin: COVID-19 original vaccine, age 12+ yr, monovalent (PFIZER-BIONTECH - PURPLE TOP) Sick contacts: yes. Smoking history/second hand smoke: none. OTC not helping. No antibiotic use in the last 60 days. ALLERGIES No Known Allergies No family history on file. Social History Tobacco Use Smoking status: Never Passive exposure: Yes Smokeless tobacco: Never Tobacco comments: mom and step dad Vaping Use Vaping status: Never Used Alcohol use: Never Drug use: Never Active Ambulatory Problems No Active Ambulatory Problems Resolved Ambulatory Problems No Resolved Ambulatory Problems Past Medical History: No date: NEGATIVE MEDICAL HISTORY Review of Systems Constitutional: Positive for fatigue. Negative for fever. HENT: Positive for congestion, ear pain and sore throat. Eyes: Negative. Respiratory: Positive for cough. Cardiovascular: Negative. Gastrointestinal: Negative. Endocrine: Negative. Genitourinary: Negative. Musculoskeletal: Negative. Skin: Negative. Neurological: Negative. Objective BP 106/60 Pulse 80 Temp 36.7 ?C (98 ?F) Resp 16 Wt 67.9 kg (149 lb 11.1 oz) SpO2 97% Physical Exam Vitals reviewed. Constitutional: General: He is awake. He is not in acute distress. Appearance: He is not ill-appearing, toxic-appearing or diaphoretic. HENT: Head: Normocephalic and atraumatic. Right Ear: Ear canal and external ear normal. Tympanic membrane is erythematous. Tympanic membrane is not bulging. Left Ear: Ear canal and external ear normal. Tympanic membrane is erythematous and bulging. Nose: Rhinorrhea present. Right Sinus: No maxillary sinus tenderness or frontal sinus tenderness. Left Sinus: No maxillary sinus tenderness or frontal sinus tenderness. Mouth/Throat: Mouth: Mucous membranes are moist. Pharynx: Oropharynx is clear. No pharyngeal swelling, oropharyngeal exudate or posterior oropharyngeal erythema. Cardiovascular: Rate and Rhythm: Normal rate and regular rhythm. Pulmonary: Effort: Pulmonary effort is normal. Breath sounds: Normal breath sounds. Lymphadenopathy: Head: Right side of head: No submandibular or tonsillar adenopathy. Left side o (more content not included)... Normal [facility] Office Visit Reporton 2023 Office Visit Report [facility] [address] 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 Allergies No Known Allergies Allergy (Verified 08/28/14 09:36) Office Procedures [facility] Billing Sheet Testing Breath Alcohol in [facility]: Yes Pre-Employment Drug Screen: Yes 05/02/24 3814 Date Aj Pettit Signature: Date (if applicable) CC: [facility] ([id number]) 3 M Date Time Provider Department 04/07/24 [facility] During your visit today, we recorded the following information about you: Marie Nelson APRN.[facility] 04/07/2024 7:14 AM Signed You tested negative for COVID, Influenza, and RSV. Please contact us if your symptoms are worsening or not improving. Please advise. Jing Miner MA 04/07/2024 8:04 AM Signed Patient notified. Jing Miner MA Allergies As of Date: 04/07/2024 (No Known Allergies) Date Reviewed: 04/06/2024 Reviewed by: Jing Miner MA - Fully Assessed Reason for Visit: Results [95] Prescriptions as of 04/07/2024 - naproxen (NAPROSYN) 500 mg tablet Take 1 tablet by mouth two times a day as needed for pain (for pain/inflammation) for up to 20 doses. Take with food. - cephALEXin (KEFLEX) 500 mg capsule Take 1 capsule by mouth three times daily. Problem List As Of Date: 04/07/2024 (None) Encounter Status:Closed by JING MINER on 04/07/24 Normal [facility] CNOVon 04-06-2024 CNOV Office Visit ([facility]WSTR ) KETAN STEWART ([id number]) 3 M Date Time Provider Department 04/06/24 4:15 PM [facility] During your visit today, we recorded the following information about you: Temperature Pulse Respiration Blood pressure 98.1 degrees 45/minute 18/minute 123/73 Weight 65.8 kg Ann Siegel APRN.[employer] 04/06/2024 5:42 PM Signed Subjective Headache Pertinent negatives include no fever, no shortness of breath, no nausea and no vomiting. Ketan Stewart is a 18 year old male who presents with 4 days of headache, had had a sore throat and stomach ache today. He has also been having nasal congestion and drainage. He has not had a fever. He notes being exposed to pneumonia in a friend of his recently. He rates his headache pain 4/10 currently. He has not taken any medication at home for his headache. Review of Systems Constitutional: Negative for chills and fever. HENT: Positive for congestion and sore throat. Negative for ear pain. Respiratory: Negative for cough and shortness of breath. Cardiovascular: Negative. Gastrointestinal: Positive for abdominal pain. Negative for diarrhea, nausea and vomiting. Neurological: Positive for headaches. BP 123/73 Pulse (!) 45 Temp 36.7 ?C (98.1 ?F) Resp 18 Wt 65.8 kg (145 lb 1 oz) SpO2 100% PAST MEDICAL HISTORY Diagnosis Date NEGATIVE MEDICAL HISTORY No past surgical history on file. ALLERGIES Patient has no known allergies. MEDICATIONS naproxen (NAPROSYN) 500 mg tablet Take 1 tablet by mouth two times a day as needed for pain (for pain/inflammation) for up to 20 doses. Take with food. (Patient not taking: Reported on 04/06/2024) cephALEXin (KEFLEX) 500 mg capsule Take 1 capsule by mouth three times daily. (Patient not taking: Reported on 06/30/2022) No family history on file. Social History Tobacco Use Smoking status: Never Passive exposure: Yes Smokeless tobacco: Never Tobacco comments: mom and step dad Vaping Use Vaping status: Never Used Substance Use Topics Alcohol use: Never Drug use: Never Objective Physical Exam Vitals and nursing note reviewed. Constitutional: Appearance: Normal appearance. HENT: Right Ear: Tympanic membrane, ear canal and external ear normal. Left Ear: Tympanic membrane, ear canal and external ear normal. Nose: Nose normal. Mouth/Throat: Lips: [place]. Mouth: Mucous membranes are moist. Pharynx: Oropharynx is clear. Uvula midline. Posterior oropharyngeal erythema, uvula swelling and postnasal drip present. No oropharyngeal exudate. Tonsils: No tonsillar exudate or tonsillar abscesses. Cardiovascular: Rate and Rhythm: Normal rate and regular rhythm. Heart sounds: Normal heart sounds. Pulmonary: Effort: Pulmonary effort is normal. No respiratory distress. Breath sounds: Normal breath sounds. No wheezing or rales. Musculoskeletal: Cervical back: Neck supple. Lymphadenopathy: Cervical: No cervical adenopathy. Skin: General: Skin is warm and dry. Findings: No erythema or rash. Neurological: Mental Status: He is alert. ASSESSMENT/PLAN: 1. Sore throat - ICD9: 462, ICD10: J02.9 (primary diagnosis) - suspect viral - Group A strep molecular testing negative - Discussed supportive care treatment with fluids, rest and analgesia. - STREP A MOLECULAR (POC) 2. Headache, unspecified headache type - ICD9: 784.0, ICD10: R51.9 - recommend using tylenol and/or ibuprofen for headache pain. - XR CHEST 2V FRONTAL/LAT IMPRESSION: No acute radiographic abnormality. Ocean Export Coordinator: MAKEDA Transcribe Date/Time: Apr 06 2024 5:33P Dictated by : CAMILLE HUNTER MD - COVID AND INFLUENZA A/B AND RSV PCR, ROUTINE - Follow-up with your PCP in 3-5 days if symptoms have not improved or sooner if symptoms worsen - Discussed red flags and need for immediate medical evaluation if any occur. - Discussed supportive care treatment with fluids, rest and analgesia. - Discussed expected course of illness Ann Siegel APRN.Ann Patel APRN.CNP 04/06/2024 5:38 PM Signed ASSESSMENT/PLAN: 1. Sore throat - ICD9: 462, ICD10: J02.9 (primary diagnosis) - suspect viral - Group A strep molecular testing negative - Discussed supportive care treatment with fluids, rest and analgesia. - STREP A MOLECULAR (POC) 2. Headache, unspecified headache type - ICD9: 784.0, ICD10: R51.9 - recommend using tylenol and/or ibuprofen for headache pain. - XR CHEST 2V FRONTAL/LAT IMPRESSION: No acute radiographic abnormality. Ocean Export Coordinator: MAKEDA Transcribe Date/Time: Apr 06 2024 5:33P Dictated by : CAMILLE HUNTER MD - COVID AND INFLUENZA A/B AND RSV PCR, ROUTINE - Follow-up with your PCP in 3-5 days if symptoms have not improved or sooner if symptoms worsen - Discussed red flags and need for immediate medical evaluation if any occur. (more content not included)... Normal [facility] COVID AND INFLUENZA A/B AND RSV PCR, ROUTINEon 04-06-2024 SARS-CoV-2 (COVID-19) RNA OSMANY+probe Ql (Unsp spec) SARS-COV-2 (AGENT OF COVID-19) RNA: Not detected INFLUENZA A RNA: Not detected INFLUENZA B RNA: Not detected RESPIRATORY SYNCYTIAL VIRUS (RSV) RNA: Not detected Normal [facility] Comment on above: Performed By: #### C VFLRS ####[facility] LABCLIA [id number] [place] [address] [place] STREP A MOLECULAR (POC)on Procedural Control Valid [facility] Strep A (POCT) Negative Negative [facility] XR CHEST 2V FRONTAL/LATon XR CHEST 2V FRONTAL/LAT * * *Final Repor t* * * DATE OF EXAM: Apr 06 2024 5:23PM WOX [id number] - XR CHEST 2V FRONTAL/LAT / PROCEDURE REASON: Headache, unspecified headache type * * * * Physician Interpretation * * * * EXAMINATION: CHEST RADIOGRAPH (2 VIEW FRONTAL and LATERAL) CLINICAL HISTORY: Headache, unspecified headache type . Acute cough MQ: XC2_6 EXAM DATE/TIME: 04/06/2024 5:23 PM COMPARISON: 07/26/2019 RESULT: Lines, tubes, and devices: None. Lungs and pleura: No consolidation. No lung mass. No pleural effusion. No pneumothorax. Cardiomediastinal silhouette: Normal cardiomediastinal silhouette. Bones and soft tissues: Unremarkable. IMPRESSION: No acute radiographic abnormality. Ocean [employer] Coordinator: PSCB Transcribe Date/Time: Apr 06 2024 5:33P Dictated by : CAMILLE HUNTER MD This examination was interpreted and the report reviewed and electronically signed by: CAMILLE HUNTER MD on Apr 06 2024 5:33PM EST [id number] Normal [facility] XR Chest PA and Lateralon IMPRESSION: No acute radiographic abnormality. Ocean Export Coordinator: PSCB Transcribe Date/Time: Apr 06 2024 5:33P Dictated by : CAMILLE HUNTER MD This examination was interpreted and the report reviewed and electronically signed by: CAMILLE HUNTER MD on Apr 06 2024 5:33PM EST DIVISION OF RADIOLOGY * * *Final Report* * * DATE OF EXAM: Apr 06 2024 5:23PM WOX [id number] - XR CHEST 2V FRONTAL/LAT / PROCEDURE REASON: Headache, unspecified headache type * * * * Physician Interpretation * * * * EXAMINATION: CHEST RADIOGRAPH (2 VIEW FRONTAL & LATERAL) CLINICAL HISTORY: Headache, unspecified headache type . Acute cough MQ: XC2_6 EXAM DATE/TIME: 04/06/2024 5:23 PM COMPARISON: 07/26/2019 RESULT: Lines, tubes, and devices: None. Lungs and pleura: No consolidation. No lung mass. No pleural effusion. No pneumothorax. Cardiomediastinal silhouette: Normal cardiomediastinal silhouette. Bones and soft tissues: Unremarkable. DIVISION OF RADIOLOGY [facility] * * *Final Report* * * DATE OF EXAM: Apr 06 2024 5:23PM WOX [id number] - XR CHEST 2V FRONTAL/LAT / PROCEDURE REASON: Headache, unspecified headache type * * * * Physician Interpretation * * * * EXAMINATION: CHEST RADIOGRAPH (2 VIEW FRONTAL & LATERAL) CLINICAL HISTORY: Headache, unspecified headache type . Acute cough MQ: XC2_6 EXAM DATE/TIME: 04/06/2024 5:23 PM COMPARISON: 07/26/2019 RESULT: Lines, tubes, and devices: None. Lungs and pleura: No consolidation. No lung mass. No pleural effusion. No pneumothorax. Cardiomediastinal silhouette: Normal cardiomediastinal silhouette. Bones and soft tissues: Unremarkable. IMPRESSION IMPRESSION: No acute radiographic abnormality. Ocean Export Coordinator: PSCB Transcribe Date/Time: Apr 06 2024 5:33P Dictated by : CAMILLE HUNTER MD This examination was interpreted and the report reviewed and electronically signed by: CAMILLE HUNTER MD on Apr 06 2024 5:33PM EST [facility] Radiology Study observation (narrative) [facility] Chest PA and LateralOrder ed By: [facility] Provider on 04-06-2024 [facility] Urgent Care Visit Reporton 0 01-12-2024 Urgent Care Visit Report [facility] [address], [address] [place] [address] OFFICE VISIT Date of Service: 01/12/24 MR#: [id number] Acct: [id number] Name: KETAN STEWART Rep #: [id number] : 2005 Provider: JERE Pagan Age/Sex: 18/M Location[place] [facility] Status: Signed Intake Vital Signs 08/28/14 09:18 Height 0 in Intake Visit Reasons: PRE EMP/NON DOT/PHYSICAL/LESTER BRUSH Allergies No Known Allergies Allergy (Verified 08/28/14 09:36) PFSH Medical History (Updated 01/12/24 @ 15:05 by Aj OQUENDO, JERE) Physical exam, pre-employment HPI HPI Details: KEATN STEWART, is a 18 M who presents to the office today for Office Procedures Physical Exam Coding PE Coding Pre-employment PE: Yes Coding Level of Care Code No Charge Diagnoses Physical exam, pre-employment Z02.1 Assessment and Plan Assessment and Plan (1) Physical exam, pre-employment: Status: Acute 01/12/24 1546 Date Aj Pettit Signature: Date (if applicable) CC: Normal [place] CNOVon 10-12-2023 CN Office Visit ([facility] ) KETAN STEWART ([id number]) 3 M Date Time Provider Department 10/12/23 10:15 AM JESS BOWEN [facility] During your visit today, we recorded the following information about you: Temperature Pulse Respiration Blood pressure 97.5 degrees 66/minute 16/minute 128/82 Weight 65.4 kg Jess Bowen APRN.[employer] ADVISOR 10/12/2023 10:01 AM Signed This note was created using Glo[employer] Technologyriter. Subjective Ketan Stewart is a 18 year old male. Review of Systems HENT: Positive for dental problem. All other systems reviewed and are negative. Pt complains of dental pain in the region of tooth #32. Will schedule with a dentist tomorrow. Objective BP 128/82 Pulse 66 Temp 36.4 ?C (97.5 ?F) (Tympanic) Resp 16 Wt 65.4 kg (144 lb 2.9 oz) SpO2 97% Physical Exam Vitals and nursing note reviewed. Constitutional: General: He is not in acute distress. Appearance: Normal appearance. He is not ill-appearing. HENT: Head: Normocephalic. Mouth/Throat: Mouth: Mucous membranes are moist. Comments: No obvious dental caries noted. No obvious sign of periodontal abscess. No swelling in the pharynx. Eyes: Conjunctiva/sclera: Conjunctivae normal. Cardiovascular: Rate and Rhythm: Normal rate and regular rhythm. Pulmonary: Effort: Pulmonary effort is normal. Breath sounds: Normal breath sounds. Musculoskeletal: General: Normal range of motion. Cervical back: Normal range of motion. Skin: General: Skin is warm and dry. Neurological: General: No focal deficit present. Mental Status: He is alert. Psychiatric: Mood and Affect: Mood normal. Behavior: Behavior normal. Assessment and Plan ASSESSMENT/PLAN: 1. Pain, dental - ICD9: 525.9, ICD10: K08.89 Patient will follow-up with dentistry tomorrow and arrange for an appointment. I did not see any need for antibiotic at this time and patient was comfortable with a prescription for naproxen. - NAPROXEN 500 MG TABLET Jess Bowen APRN.[employer] Problem List Items Addressed This Visit None Allergies As of Date: 10/12/2023 (No Known Allergies) Date Reviewed: 10/12/2023 Reviewed by: Jess Bowen APRN.[employer] ADVISOR - Fully Assessed Reason for Visit: Dental Problem [31] Cmt: Tooth pain x 4 days Primary Visit Diagnosis:Pain, dental [K08.89] Order(s):naproxen (NAPROSYN) 500 mg tabletTake 1 tablet by mouth two times a day as needed for pain (for pain/inflammation) for up to 20 doses. Take with food.Disp: 20 tabletRfl: 0 Prescriptions as of 10/12/2023 - naproxen (NAPROSYN) 500 mg tablet Take 1 tablet by mouth two times a day as needed for pain (for pain/inflammation) for up to 20 doses. Take with food. - cephALEXin (KEFLEX) 500 mg capsule Take 1 capsule by mouth three times daily. Problem List As Of Date: 10/12/2023 (None) Prescriptions ordered this encounter Disp Refills Start End NAPROXEN 500 MG TABLET 20 t* 0 10/12/2023 Route: ORAL Sig: Take 1 tablet by mouth two times a day as needed for pain (for pain/inflammation) for up to 20 doses. Take with food. Encounter Status:Closed by JESS BOWEN on 10/12/23 [facility] CNOVon 09-11-2023 CNOV Office Visit (FRFHWS ) KETAN STEWART ([id number]) 3 M Date Time Provider Department 09/11/23 2:30 PM BENY GARNICA V [facility] During your visit today, we recorded the following information about you: Cherelle Alejandre RN 09/11/2023 2:25 PM Signed Patient presents with: left wrist: 5 weeks 3 days post left wrist fracture Xray 09/11/2023 Patient her for a follow up of a left wrist fracture. Dad is here with the patient today. Denies any pain. AMB ROOMING INTAKE FLOWSHEET DATA ROSALBA Serrato Dennis, V, DO 09/11/2023 2:25 PM Signed SERVICE DATE: September 11, 2023 PCP: Birdie Martinez MD, MD Subjective Patient ID: Ketan is a 18 year old male. Chief Complaint: Patient presents with: left wrist: 5 weeks 3 days post left wrist fracture Xray 09/11/2023 PAIN EVALUATION No data found in the last 1 encounters. HPI TREATMENTS PRIOR TO INITIAL CONSULT: Review of Systems There is no problem list on file for this patient. PAST MEDICAL HISTORY Diagnosis Date NEGATIVE MEDICAL HISTORY History reviewed. No pertinent surgical history. No family history on file. Social History Tobacco Use Smoking status: Never Passive exposure: Yes Smokeless tobacco: Never Tobacco comments: mom and step dad Vaping Use Vaping Use: Never used Substance Use Topics Alcohol use: Never Drug use: Never ALLERGIES No Known Allergies MEDICATIONS: cephALEXin (KEFLEX) 500 mg capsule Take 1 capsule by mouth three times daily. (Patient not taking: Reported on 06/30/2022) Allergies, medications, past surgical history, family history and past medical history were reviewed per this encounter. Objective Ortho Exam 7-year-old male alert oriented. No acute distress. Dilation of the left wrist and hand shows no significant pain with palpation along the radiocarpal junction or distal radial ulnar joint. There is normal range of motion in the wrist and hand with no restriction. No focal sensory neural deficits noted. The left wrist shows interval healing of the nondisplaced distal radial fracture Assessment/Plan ASSESSMENT Diagnosis (S52.572D) Closed -punch intra-articular fracture of distal radius, left, with routine healing, subsequent encounter (primary encounter diagnosis) No orders found for this visit on 09/11/23. PLAN May resume activity to tolerance-some degree of soreness and stiffness with activity due to immobilization FOLLOW-UP: No follow-ups on file. PRN SIGNATURE: Beny Garnica DO PATIENT NAME: Ketan Stewart DATE: September 11, 2023 TIME: 2:23 PM Allergies As of Date: 09/11/2023 (No Known Allergies) Date Reviewed: 09/11/2023 Reviewed by: Cherelle Alejandre RN - Fully Assessed Reason for Visit: left wrist [Other] Cmt: 5 weeks 3 days post left wrist fracture Xray 09/11/2023 Primary Visit Diagnosis:Closed -punch intra-articular fracture of distal radius, left, with routine healing, subsequent encounter [S52.572D] Prescriptions as of 09/11/2023 - cephALEXin (KEFLEX) 500 mg capsule Take 1 capsule by mouth three times daily. Problem List As Of Date: 09/11/2023 (None) Encounter Status:Closed by BENY GARNICA V on 09/11/23 [facility] XR WRIST 3V PA/LAT/OBL LTon 09-11-2023 XR WRIST 3V PA/LAT/OBL LT * * *Final Report* * * DATE OF EXAM: Sep 11 2023 2:17PM WRX 5270 - XR WRIST 3V PA/LAT/OBL LT / PROCEDURE REASON: Closed -punch intra-articular fracture of distal radius, left, with routine h * * * * Physician Interpretation * * * * EXAMINATION: XR WRIST 3V PA/LAT/OBL LT CLINICAL HISTORY: Follow-up distal left radius fracture Technique: XR WRIST 3V PA/LAT/OBL LT -- LEFT with 3 views on 3 images Comparison: X-ray left wrist 08/28/2023 RESULT: Unchanged alignment of a vertically orientated distal left radius fracture with some sclerosis along the fracture margin. No dislocation. Joint spaces are maintained. IMPRESSION: Unchanged alignment of a distal left radius fracture Ocean Export Coordinator: PSCB Transcribe Date/Time: Sep 14 2023 4:49P Dictated by : RAMIRO MCKEON MD This examination was interpreted and the report reviewed and electronically signed by: RAMIRO MCKEON MD on Sep 14 2023 4:50PM EST [id number] [facility] CNOVon 08-28-2023 CNOV Office Visit (FRWS ) STEWARTKETAN Hampton ([id number]) 3 M Date Time Provider Department 08/28/23 2:30 PM [facility] During your visit today, we recorded the following information about you: Judson TraylorBelinda 08/28/2023 3:04 PM Signed AMB ROOMING INTAKE FLOWSHEET DATA Patient is 3 weeks 3 days post left distal radius fracture. He denies any pain. Arrives with cast completely intact. Cast was removed for new imaging today. Beny Garnica V, DO 08/28/2023 3:04 PM Signed SERVICE DATE: August 28, 2023 PCP: Birdie Martinez MD, MD Subjective Patient ID: Ketan is a 18 year old male. Chief Complaint: Patient presents with: 3 weeks 3 days post left wrist fracture PAIN EVALUATION No data found in the last 1 encounters. HPI wrist feels good- no pain. Wearing cast as directed. Review of Systems There is no problem list on file for this patient. PAST MEDICAL HISTORY Diagnosis Date NEGATIVE MEDICAL HISTORY No past surgical history on file. No family history on file. Social History Tobacco Use Smoking status: Never Passive exposure: Yes Smokeless tobacco: Never Tobacco comments: mom and step dad Vaping Use Vaping Use: Never used Substance Use Topics Alcohol use: Never Drug use: Never ALLERGIES No Known Allergies MEDICATIONS: cephALEXin (KEFLEX) 500 mg capsule Take 1 capsule by mouth three times daily. (Patient not taking: Reported on 06/30/2022) Allergies, medications, past surgical history, family history and past medical history were reviewed per this encounter. Objective Ortho Exam Examination of left wrist out of cast. Mild stiffness with active and passive range of motion with wrist movement. Minimal tenderness with direct palpation over the distal radius. X-ray shows intra-articular fracture distal radius with routine healing Assessment/Plan ASSESSMENT Diagnosis Closed punch intra-articular fracture left distal radius with routine healing No orders found for this visit on 08/28/23. PLAN out of cast today- placed in a full wrist splint may remove for bedtime, gentle ROM exercises FOLLOW-UP: No follow-ups on file. 2 weeks SIGNATURE: Beny Garnica DO PATIENT NAME: Ketan Stewart DATE: August 28, 2023 TIME: 3:01 PM Referring Provider: BENY GARNICA V [[id number]] Allergies As of Date: 08/28/2023 (No Known Allergies) Date Reviewed: 08/28/2023 Reviewed by: Belinda Roper Ma - Fully Assessed Reason for Visit: 3 weeks 3 days post left wrist fracture [Other] Primary Visit Diagnosis:Closed -punch intra-articular fracture of distal radius, left, with routine healing, subsequent encounter [L05.489R] Prescriptions as of 08/28/2023 - cephALEXin (KEFLEX) 500 mg capsule Take 1 capsule by mouth three times daily. Problem List As Of Date: 08/28/2023 (None) Encounter Status:Closed by BENY GARNICA V on 08/28/23 [facility] XR WRIST 3V PA/LAT/OBL LTon 08-28-2023 XR WRIST 3V PA/LAT/OBL LT * * *Final Report* * * DATE OF EXAM: Aug 28 2023 2:52PM WRX 5270 - XR WRIST 3V PA/LAT/OBL LT / PROCEDURE REASON: Other closed intra-articular fracture of distal end of left radius, initial enco * * * * Physician Interpretation * * * * TITLE: XR WRIST 3V PA/LAT/OBL LT CLINICAL INDICATION: Closed fracture TECHNIQUE: 3 view radiographic study of the left wrist COMPARISON: Radiograph dated August 04, 2023 FINDINGS: Redemonstration of subtle vertical oblique lucency in the distal radial epiphysis extending to the articular surface on the oblique film suspect for a nondisplaced fracture with suggestion of slight interval healing manifest by mild sclerosis along the fracture lucency. IMPRESSION: Slight interval healing of nondisplaced distal radial fracture. Ocean Export Coordinator: MAKEDA Transcribe Date/Time: Aug 31 2023 6:22A Dictated by : ARIELLA PEREA MD This examination was interpreted and the report reviewed and electronically signed by: ARIELLA PEREA MD on Aug 31 2023 6:24AM EST [id number] [facility] CNCOon 08-07-2023 CNCO Letter Text [facility] CNOVon 08-07-2023 CNOV Office Visit (FRWS ) KETAN STEWART ([id number]) 3 M Date Time Provider Department 08/07/23 3:30 PM [facility] During your visit today, we recorded the following information about you: Belinda Roper Ma 08/07/2023 2:46 PM Signed AMB ROOMING INTAKE FLOWSHEET DATA Pain Pain Level: 7 Pain Location: Wrist-Left Description: Throbbing Duration Amount of Time: 3 Duration Units: Days Frequency: Intermittent Intervention/Comfort measure: Splinting, Other: See comment (sling) Patient here today for left wrist fracture x 3 days. He states he was playing basketball and came down on someone else's foot awkwardly and twisted his ankle and put his hand out to catch himself. He is right hand dominant. Beny Garnica V, DO 08/07/2023 2:46 PM Signed SERVICE DATE: August 07, 2023 PCP: Birdie Martinez MD, MD Subjective Patient ID: Ketan is a 17 year old male. Chief Complaint: Patient presents with: Left distal radius fracture REF: Cole Cruz x-ray: 08/04/19 PAIN EVALUATION 08/07/2023 1357 Pain Level: 7 Pain Location: Wrist-Left Description: Throbbing Duration Amount of Time: 3 Duration Units: Days Frequency: Intermittent Intervention/Comfort measure: Splinting;Other: See comment sling HPI Fell on outstretched arm while playing basketball. Pain noted in the wrist region. He went to [facility] where he was x-rayed and found to have a nondisplaced intra-articular fracture of the distal radius. He has been in a soft splint at that time. Denies any numbness or tingling in the fingers or hand. TREATMENTS PRIOR TO INITIAL CONSULT: splint Review of Systems There is no problem list on file for this patient. PAST MEDICAL HISTORY Diagnosis Date NEGATIVE MEDICAL HISTORY History reviewed. No pertinent surgical history. No family history on file. Social History Tobacco Use Smoking status: Never Passive exposure: Yes Smokeless tobacco: Never Tobacco comments: mom and step dad Vaping Use Vaping Use: Never used Substance Use Topics Alcohol use: Never Drug use: Never ALLERGIES No Known Allergies MEDICATIONS: cephALEXin (KEFLEX) 500 mg capsule Take 1 capsule by mouth three times daily. (Patient not taking: Reported on 06/30/2022) Allergies, medications, past surgical history, family history and past medical history were reviewed per this encounter. Objective Ortho Exam evaluation of the left wrist and hand shows no significant redness or swelling. No focal sensory neural deficits noted. There is pain with palpation at the distal radial carpal junction. Strays positive for a small nondisplaced intra-articular fracture of the distal radius Assessment/Plan ASSESSMENT Diagnosis closed, intra-articular fracture left distal radius PLAN Short arm fiberglass cast applied Cast care instructions reviewed FOLLOW-UP: 4 weels. x-ray out of cast SIGNATURE: Beny Garnica DO PATIENT NAME: Ketan Stewart DATE: August 07, 2023 TIME: 2:09 PM Belinda Roper Ma 08/07/2023 2:46 PM Signed PT ASSESSMENT - CASTING ROOM Ketan presents for Application of cast. Applied short arm cast to Left wrist using 2 rolls of gortex and 1 roll of fiberglass. Patient tolerated well. Note given for work and appointment scheduled in 3 weeks. Patient has been instructed in Care of cast. Belinda Roper Ma Referring Provider: BRYCE CRUZ [[id number]] Allergies As of Date: 08/07/2023 (No Known Allergies) Date Reviewed: 08/07/2023 Reviewed by: Belinda Roper Ma - Fully Assessed Reason for Visit: Left distal radius fracture REF: Cole Cruz x-ray: 08/04/19 [Other] Primary Visit Diagnosis:Closed -punch intra-articular fracture of distal radius, left, with routine healing, subsequent encounter [S80.421Q] Other Visit Diagnosis:Other closed intra-articular fracture of distal end of left radius, initial encounter [Q36.439W] Order(s):CONSULT TO ORTHOPAEDICS [9072] Order #: [id number]: 1 Prescriptions as of 08/07/2023 - cephALEXin (KEFLEX) 500 mg capsule Take 1 capsule by mouth three times daily. Problem List As Of Date: 08/07/2023 (None) Encounter Status:Closed by BENY GARNICA V on 08/07/23 [facility] CNOVon 08-04-2023 CNOV Office Visit (UCWSTR ) KETAN STEWART ([id number]) 3 M Date Time Provider Department 08/04/23 7:30 AM [facility] During your visit today, we recorded the following information about you: Temperature Pulse Respiration Blood pressure 97.9 degrees 80/minute 18/minute 135/78 Weight 60.8 kg Bryce Cruz PA-C 08/04/2023 10:13 AM Signed 08/04/2023 Patient presents with: Wrist/forearm Injury: Playing basketball, came down on wrist, 1 hour ago SUBJECTIVE: This is a 17 year old that is here today for Complaint(s) of left wrist injury x 1 hour ago. Patient was playing basketball this morning and tripped over another player's foot and landed catching himself on his left wrist. Possible on outstretched hand. + swelling and pain and concern for fracture. Notes some numbness in figner tips. Able to move fingers and can still feel sensation with fingers. Ankle pain- When he came down he rolled his left ankle and having some pain and swelling on the outside of the ankle. Denies numbness/tingling. He was able to ambulate into the visit. PAST MEDICAL HISTORY Diagnosis Date NEGATIVE MEDICAL HISTORY ALLERGIES Patient has no known allergies. MEDICATIONS Current Outpatient Medications Medication Sig cephALEXin (KEFLEX) 500 mg capsule Take 1 capsule by mouth three times daily. (Patient not taking: Reported on 06/30/2022) No current facility-administered medications for this visit. SOCIAL HISTORY Social History Tobacco Use Smoking status: Never Passive exposure: Yes Smokeless tobacco: Never Tobacco comments: mom and step dad REVIEW OF SYSTEMS See HPI OBJECTIVE: BP 135/78 Pulse 80 Temp 36.6 ?C (97.9 ?F) Resp 18 Wt 60.8 kg (134 lb) SpO2 100% APPEARANCE Well appearing, alert, in no acute distress, well-hydrated, well nourished. EXTREMITIES Normal exam of the right wrist. Left wrist - + edema over the distal radial aspect. Limited ROM with flexion and extension secondary to pain. + TTP over the distal radius. No TTP over ulnar aspect. Normal ROM digits. Sensation grosslyintact distal to injury. Good capillary refill with neurovascular status intact. No skin discoloration Amy radial pulses bilaterally. No TTP elbow, normal ROM. Left Ankle- normal ROM, pain with extension and flexion. + mild edema of the lateral malleolus. + TTP lateral malleolus. Strength intact. Neurovascular status intact distal to injury. Able to bear weight. No TTP base of the 5th metatarsal. No TTP over achilles. Left Wrist Xray Radiology report: Suspect nondisplaced intra-articular fracture of the distal radius. Patient placed in a sugar tong splint with sling applied. Neurovascular status reevaluated post splint placement-intact. ASSESSMENT/PLAN: 1. Wrist injury, left, initial encounter - ICD9: 959.3, ICD10: S69.92XA (primary diagnosis) See below-distal radius fracture - XR WRIST INJURY 4V PA/LAT/OBL/SCAPH LEFT 2. Other closed intra-articular fracture of distal end of left radius, initial encounter - ICD9: 813.42, ICD10: S52.572A Patient placed in a sugar tong splint with sling. Ice, elevation, rest, tylenol/motrin Consult to ortho scheduled for this Thursday. Reviewed red flags and when to seek care sooner. The patient indicates understanding of these issues and agrees with the plan. - CONSULT TO ORTHOPAEDICS 3. Left ankle injury, initial encounter - ICD9: 959.7, ICD10: S99.912A No obvious fracture. Suspect sprain Aircast applied. RICE, tylenol/motrin F/u in 7 days if not improving, sooner if worsening - XR ANKLE GENERAL 3V AP/LAT/OBL LEFT The patient indicates understanding of these issues and agrees with the plan. Bryce Cruz PA-C 08/04/2023 Allergies As of Date: 08/04/2023 (No Known Allergies) Date Reviewed: 08/04/2023 Reviewed by: Bryce Cruz PA-C - Fully Assessed Reason for Visit: Wrist/forearm Injury [1749] Cmt: Playing basketball, came down on wrist, 1 hour ago Primary Visit Diagnosis:Wrist injury, left, initial encounter [S69.92XA] Other Visit Diagnoses:Other closed intra-articular fracture of distal end of left radius, initial encounter [S52.572A] Left ankle injury, initial encounter [S99.912A] Order(s):XR WRIST INJURY 4V PA/LAT/OBL/SCAPH LEFT [[id number]] Order #: [id number] FUTURE CONSULT TO ORTHOPAEDICS [9026] Order #: [id number]: 1 FUTURE XR ANKLE GENERAL 3V AP/LAT/OBL LEFT [[id number]] Order #: [id number] FUTURE Prescriptions as of 08/04/2023 - cephALEXin (KEFLEX) 500 mg capsule Take 1 capsule by mouth three times daily. Problem List As Of Date: 08/04/2023 (None) Level of Service: OFFICE/OUTPATIENT ESTABLISHED LOW MDM 20 MIN [20674] Letter Text Encounter Status:Closed by BRYCE CRUZ on 08/04/23 [facility] No Panel Informationon 08-04 Radiology Study observation (narrative) [facility] XR ANKLE 3V AP/LAT/OBL LTon 08-04-2023 XR ANKLE 3V AP/LAT/OBL LT * * *Final Report* * * DATE OF EXAM: Aug 04 2023 9:06AM WOX 5298 - XR ANKLE 3V AP/LAT/OBL LT / PROCEDURE REASON: Left ankle injury, initial encounter * * * * Physician Interpretation * * * * TECHNIQUE: XR ANKLE 3V AP/LAT/OBL LT - EXAM DATE: 08/04/2023 9:06 AM CLINICAL HISTORY: Left ankle injury, initial encounter COMPARISON: None FINDINGS: 3 views of the left ankle demonstrate lateral soft tissue swelling and an ankle joint effusion. There is no fracture or dislocation. The talar dome is intact. IMPRESSION: Soft tissue swelling without fracture Ocean Export Coordinator: PSC Transcribe Date/Time: Aug 04 2023 9:06A Dictated by : DINO MENDES MD This examination was interpreted and the report reviewed and electronically signed by: DINO MENDES MD on Aug 04 2023 9:06AM EST [id number] [facility] XR Ankle - left AP and Later al and obliqueon 08-04-2023 IMPRESSION: Soft tissue swelling without fracture Ocean Export Coordinator: PSCB Transcribe Date/Time: Aug 04 2023 9:06A Dictated by : DINO MENDES MD This examination was interpreted and the report reviewed and electronically signed by: DINO MENDES MD on Aug 04 2023 9:06AM EST DIVISION OF RADIOLOGY * * *Final Report* * * DATE OF EXAM: Aug 04 2023 9:06AM WOX 5298 - XR ANKLE 3V AP/LAT/OBL LT / PROCEDURE REASON: Left ankle injury, initial encounter * * * * Physician Interpretation * * * * TECHNIQUE: XR ANKLE 3V AP/LAT/OBL LT - EXAM DATE: 08/04/2023 9:06 AM CLINICAL HISTORY: Left ankle injury, initial encounter COMPARISON: None FINDINGS: 3 views of the left ankle demonstrate lateral soft tissue swelling and an ankle joint effusion. There is no fracture or dislocation. The talar dome is intact. DIVISION OF RADIOLOGY Provider, [facility] - 08/04/2023 * * *Final Report* * * DATE OF EXAM: Aug 04 2023 9:06AM WOX 5298 - XR ANKLE 3V AP/LAT/OBL LT / PROCEDURE REASON: Left ankle injury, initial encounter * * * * Physician Interpretation * * * * TECHNIQUE: XR ANKLE 3V AP/LAT/OBL LT - EXAM DATE: 08/04/2023 9:06 AM CLINICAL HISTORY: Left ankle injury, initial encounter COMPARISON: None FINDINGS: 3 views of the left ankle demonstrate lateral soft tissue swelling and an ankle joint effusion. There is no fracture or dislocation. The talar dome is intact. IMPRESSION IMPRESSION: Soft tissue swelling without fracture Ocean Export Coordinator: [facility] Transcribe Date/Time: Aug 04 2023 9:06A Dictated by : DINO MENDES MD This examination was interpreted and the report reviewed and electronically signed by: DINO MENDES MD on Aug 04 2023 9:06AM EST [facility] XR Ankle - left AP and Later al and obliqueOrdered By: [facility] Provider on 08-04-2023 [facility] XR WRIST 4V PA/LAT/OBL/SCAPH LTon 08-04-2023 XR WRIST 4V PA/LAT/OBL/SCAPH LT * * *Final Report* * * DATE OF EXAM: Aug 04 2023 8:16AM WOX 5272 - XR WRIST 4V PA/LAT/OBL/SCAPH LT / PROCEDURE REASON: Wrist injury, left, initial encounter * * * * Physician Interpretation * * * * TECHNIQUE: XR WRIST 4V PA/LAT/OBL/SCAPH LT HISTORY: 17 years Male Wrist injury and pain, left, initial encounter COMPARISON: None RESULT: There is irregular linear lucency through the distal radial metaphysis extending into the articular surface, concerning for nondisplaced intra-articular fracture. The distal ulna is intact. Carpal bones are intact. There is soft tissue swelling about the wrist. IMPRESSION: Suspect nondisplaced intra-articular fracture of the distal radius. Ocean Export Coordinator: [facility] Transcribe Date/Time: Aug 04 2023 8:29A Dictated by : DELICIA ROBIN MD This examination was interpreted and the report reviewed and electronically signed by: DELICIA ROBIN MD on Aug 04 2023 8:30AM EST [id number] [facility] XR Wrist - left 4 Viewson IMPRESSION: Suspect nondisplaced intra-articular fracture of the distal radius. Ocean Export Coordinator: MAKEDA Transcribe Date/Time: Aug 04 2023 8:29A Dictated by : DELICIA ROBIN MD This examination was interpreted and the report reviewed and electronically signed by: DELICIA ROBIN MD on Aug 04 2023 8:30AM [facility] DIVISION OF RADIOLOGY * * *Final Report* * * DATE OF EXAM: Aug 04 2023 8:16AM WOX 5272 - XR WRIST 4V PA/LAT/OBL/SCAPH LT / PROCEDURE REASON: Wrist injury, left, initial encounter * * * * Physician Interpretation * * * * TECHNIQUE: XR WRIST 4V PA/LAT/OBL/SCAPH LT HISTORY: 17 years Male Wrist injury and pain, left, initial encounter COMPARISON: None RESULT: There is irregular linear lucency through the distal radial metaphysis extending into the articular surface, concerning for nondisplaced intra-articular fracture. The distal ulna is intact. Carpal bones are intact. There is soft tissue swelling about the wrist. DIVISION OF RADIOLOGY Provider, [facility] - 08/04/2023 * * *Final Report* * * DATE OF EXAM: Aug 04 2023 8:16AM WOX 5272 - XR WRIST 4V PA/LAT/OBL/SCAPH LT / PROCEDURE REASON: Wrist injury, left, initial encounter * * * * Physician Interpretation * * * * TECHNIQUE: XR WRIST 4V PA/LAT/OBL/SCAPH LT HISTORY: 17 years Male Wrist injury and pain, left, initial encounter COMPARISON: None RESULT: There is irregular linear lucency through the distal radial metaphysis extending into the articular surface, concerning for nondisplaced intra-articular fracture. The distal ulna is intact. Carpal bones are intact. There is soft tissue swelling about the wrist. IMPRESSION IMPRESSION: Suspect nondisplaced intra-articular fracture of the distal radius. Ocean Export Coordinator: MAKEDA Transcribe Date/Time: Aug 04 2023 8:29A Dictated by : DELICIA ROBIN MD This examination was interpreted and the report reviewed and electronically signed by: DELICIA ROBIN MD on Aug 04 2023 8:30AM EST [facility] XR Wrist - left 4 ViewsOrder ed By: [facility]cf Provider on 08-04-2023 [facility] Progress Noteon 09-15-2022 Transit Mixer Driver Authentication Interface Message Text Patient ID: Ketan Stewart is a 17 y.o. male. His chief complaint(s) include: 17 YEAR WELL CHILD and Immunizations Assessment 1. Routine general medical examination at a health care facility 2. Need for vaccination Plan Ketan was seen today for 17 year well child and immunizations. Diagnoses and associated orders for this visit: Routine general medical examination at a health care facility - PHQ9 Assessment With Score - Health Risk Assessment - CRAFFT Need for vaccination - Meningococcal B (BEXSERO) Patient with slow heart rate. Instructed to make sure to drink plenty of fluids. To monitor for any symptoms such as fatigue, lightheadedness or dizziness. Declined HPV, Covid 19 and influenza. Return in about 1 year (around 09/15/2023) for well check. Subjective He is unaccompanied. 17 YEAR WELL CHILD Home: Ketan eats meals with family, has an adult to turn to for help and is permitted and able to make independent decisions. Ketan has no home risk identified and does not pay the bills. Education: Ketan is in 12th grade and is doing well, is meeting expectations, is getting along with peers and earns A's & B's. Eating: Ketan eats regular meals including fruits and vegetables, eats breakfast (not every day), limits fast food, drinks non-sweetened liquids and has a calcium source. Activities & Sports: Ketan has a job ([employer]), performs at least 1 hour of physical activity daily, engages in screen time less than 2 hours daily, plays team sports (basketball, softball) and has drivers license. Ketan does not participate in music programs. Drugs: Ketan does not use tobacco, does not use drugs, does not use alcohol and does not vape. Safety: Ketan has a violence free home, has peer relationships free from violence, uses helmet and uses seat belt. Ketan does not use phone/text while driving. Sex: The patient is interested in females. The patient states that their partner and them engage in vaginal sex. The patient has 1 current sexual partners. The patient's sexual orientation is heterosexual. The patient's gender identity is cisgender. Typically, the patient uses condoms and an IUD as current contraceptive method. Condom used at last sexual encounter. The patient's partner has had an STD: no. STD screening offered and declined. Suicidality: Ketan has ways to cope with stress and displays self-confidence. Ketan has no problems with sleep, has no depression, has no anxiety, does not have mood swings, has no suicidal ideation, has no homicidal ideation and is not engaged in counseling. PHQ-9 Score: 0 Output Urine and Stool Pattern: Urine and Stool Pattern: Normal stool pattern, no constipation, normal urine pattern, no nocturnal enuresis. Stool Consistency: soft Sleep Sleeping Difficulty: no difficulty sleeping Hours of sleep at a time: 7 (to 8 hours) Teen Anticipatory Guidance The following anticipatory guidance was reviewed during the visit: Nutrition: limit junk food/fast food and soft drinks. Safety: home safety and use safety helmet/gear with activities. Social: avoid or limit screen time and parental limits and consequences for unacceptable behavior. Health: age appropriate dental care, age appropriate sleep habits, elevated noise and hearing, avoid situations where drugs and alcohol are present, how to resist peer pressure to smoke, drink, use drugs, contraception/practic e safe sex/ use condoms, practice abstinence- the safest way to prevent and STDs, talk with trusted adult if feeling sad or nervous, discuss athletic conditioning/ weight training/weight supplements, learn to manage time and activities and be responsible for attendance/ homework/ course selection. Screenings Previous Vaccine Reactions: No. Life events information was reviewed-no referral needed (social determinant questionnaire completed: no concerns at this time) Tuberculosis Concerns: Negative Tuberculosis Screen Concerns: no exposure to Tb or person with positive ppd Hearing Vision Concerns: The caregiver has no concerns about the patient's hearing. The caregiver has no concerns about the patient's vision. Hyperlipidemia Concerns: Negative Hyperlipidemia Screen Concerns: no parent or grandparent with [place] angina peripheral or cerebrovascular disease <55 years and no parent with cholesterol >240mg/dl Primary Care Review of Systems Objective Vital Signs 09/15/22 1432 09/15/22 1443 BP: (!) 141/66 120/50 Pulse: (!) 50 52 Temp: 36.7 C (98 F) TempSrc: Temporal Weight: 62.5 kg Height: 181 cm Body mass index is 19.08 kg/m . Physical Exam Constitutional: He appears well. He is active. No distress. HENT: Head: Atraumatic. Ears: Right Ear: Tympanic membrane and external ear normal. Left Ear: Tympanic membrane and external ear normal. Nose: Nose normal. No nasal discharge. Mouth/Throat: Mucous membranes ar (more content not included)... Normal [facility] XR DIGIT GENERAL 3V FRONTAL/ LAT/OBL RIGHTon 06-30-2022 [facility] XR Finger - right AP and Lat eral and obliqueon 06-30-2022 IMPRESSION: Punctate radiodensity is noted at the dorsal aspect of the distal RIGHT first metacarpal seen on lateral view. This may represent small fracture fragment and correlation with point tenderness at this site is recommended. Ocean Export Coordinator: MAKEDA Transcribe Date/Time: Jun 30 2022 4:04P Dictated by : JENSEN PERRIN MD This examination was interpreted and the report reviewed and electronically signed by: JENSEN PERRIN MD on Jun 30 2022 4:07PM [facility] DIVISION OF RADIOLOGY * * *Final Report* * * DATE OF EXAM: Jun 30 2022 4:02PM WOX [id number] - XR DIGIT 3V FRONTAL/LAT/OBL RT / PROCEDURE REASON: Thumb injury, right, initial encounter * * * * Physician Interpretation * * * * TECHNIQUE: XR DIGIT 3V FRONTAL/LAT/OBL RT, 3 views EXAM DATE: 06/30/2022 4:02 PM CLINICAL HISTORY: 16 years Male with Thumb injury, right, initial encounter ; Pain at the MCP joint on the right thumb after a jamming injury at basketball. COMPARISON: None RESULT: Punctate radiodensity is noted at the dorsal aspect of the distal first metacarpal seen on lateral view. Overlying soft tissue swelling is seen. No other osseous abnormality noted. DIVISION OF RADIOLOGY Provider, [facility] - 06/30/2022 * * *Final Report* * * DATE OF EXAM: Jun 30 2022 4:02PM WOX [id number] - XR DIGIT 3V FRONTAL/LAT/OBL RT / PROCEDURE REASON: Thumb injury, right, initial encounter * * * * Physician Interpretation * * * * TECHNIQUE: XR DIGIT 3V FRONTAL/LAT/OBL RT, 3 views EXAM DATE: 06/30/2022 4:02 PM CLINICAL HISTORY: 16 years Male with Thumb injury, right, initial encounter ; Pain at the MCP joint on the right thumb after a jamming injury at basketball. COMPARISON: None RESULT: Punctate radiodensity is noted at the dorsal aspect of the distal first metacarpal seen on lateral view. Overlying soft tissue swelling is seen. No other osseous abnormality noted. IMPRESSION IMPRESSION: Punctate radiodensity is noted at the dorsal aspect of the distal RIGHT first metacarpal seen on lateral view. This may represent small fracture fragment and correlation with point tenderness at this site is recommended. Ocean Export Coordinator: [facility] Transcribe Date/Time: Jun 30 2022 4:04P Dictated by : JENSEN PERRIN MD This examination was interpreted and the report reviewed and electronically signed by: JENSEN PERRIN MD on Jun 30 2022 4:07PM [facility] Radiology Study observation (narrative) [facility] XR Finger - right AP and Lat eral and obliqueOrdered By: Ccf Provider on 06-30-2022 [facility] XR FOOT GENERAL 3V AP/LAT/OB L LEFTon 03-17-2022 [facility] XR Foot - left AP and Latera l and obliqueon 03-17-2022 IMPRESSION: Normal radiographs of the left foot. Specifically, there is no foreign body at the site of the puncture wound. Ocean Export Coordinator: [facility] Transcribe Date/Time: Mar 17 2022 9:32A Dictated by : DINO MENDES MD This examination was interpreted and the report reviewed and electronically signed by: DINO MENDES MD on Mar 17 2022 9:33AM [facility] DIVISION OF RADIOLOGY * * *Final Report* * * DATE OF EXAM: Mar 17 2022 9:29AM WOX [id number] - XR FOOT 3V AP/LAT/OBL LT / PROCEDURE REASON: Puncture wound of left foot, initial encounter * * * * Physician Interpretation * * * * TECHNIQUE: XR FOOT 3V AP/LAT/OBL LT - EXAM DATE: 03/17/2022 9:29 AM CLINICAL HISTORY: Puncture wound of left foot, initial encounter COMPARISON: None FINDINGS: 3 views of the left foot show no fracture or dislocation. There is no radiopaque body or soft tissue calcification. Bone contours and mineralization are normal. Joint spaces are well-maintained. DIVISION OF RADIOLOGY Provider, [facility] - 03/17/2022 * * *Final Report* * * DATE OF EXAM: Mar 17 2022 9:29AM WOX [id number] - XR FOOT 3V AP/LAT/OBL LT / PROCEDURE REASON: Puncture wound of left foot, initial encounter * * * * Physician Interpretation * * * * TECHNIQUE: XR FOOT 3V AP/LAT/OBL LT - EXAM DATE: 03/17/2022 9:29 AM CLINICAL HISTORY: Puncture wound of left foot, initial encounter COMPARISON: None FINDINGS: 3 views of the left foot show no fracture or dislocation. There is no radiopaque body or soft tissue calcification. Bone contours and mineralization are normal. Joint spaces are well-maintained. IMPRESSION IMPRESSION: Normal radiographs of the left foot. Specifically, there is no foreign body at the site of the puncture wound. Ocean Export Coordinator[facility] Transcribe Date/Time: Mar 17 2022 9:32A Dictated by : DINO MENDES MD This examination was interpreted and the report reviewed and electronically signed by: DINO MENDES MD on Mar 17 2022 9:33AM EST [facility] Radiology Study observation (narrative) [facility] XR Foot - left AP and Latera l and obliqueOrdered By: Ccf Provider on 03-17-2022 [facility] Vital Signs Date Time Vital Sign Value Performing Clinician Facility 01-17-2025 18:49-0400 Body temperature 98.3 [degF] Nithin Galvin MD Work Phone: [place] 01-17-2025 18:49-0400 Diastolic blood pressure 82 mm[Hg] Nithin Galvin MD Work Phone: [place] 01-17-2025 18:49-0400 Heart rate 50 /min Nithin Galvin MD Work Phone: [place] 01-17-2025 18:49-0400 Respiratory rate 18 /min Nithin Galvin MD Work Phone: [place] 01-17-2025 18:49-0400 SaO2% (BldA) [Mass fraction] 100 % Nithin Galvin MD Work Phone: [place] 01-17-2025 18:49-0400 Systolic blood pressure 129 mm[Hg] Nithin Galvin MD Work Phone: [place] 01-17-2025 12:03-0400 Body height 182.88 cm Nithin Galvin MD Work Phone: [place] 01-17-2025 12:03-0400 Body mass index (BMI) [Ratio] 19.1 kg/m2 Nithin Galvin MD Work Phone: [place] 01-17-2025 12:03-0400 Body weight 64 kg Nithin Galvin MD Work Phone: [place] 05-24-2024 13:44-0500 Body temperature 98.01 [degF] June Zhang LAP WELDER.[employer] BEAUTY ADVISOR Work Phone: [facility] 05-24-2024 13:44-0500 Body weight 67.9 kg June Zhang LAP WELDER.[employer] SAL[employer] BEAUTY ADVISOR Work Phone: [facility] 05-24-2024 13:44-0500 Diastolic blood pressure 60 mm[Hg] June Zhang LAP WELDER.[employer] SAL[employer] BEAUTY ADVISOR Work Phone: [facility] 05-24-2024 13:44-0500 Heart rate 80 /min June Zhang LAP WELDER.[employer] SAL[employer] BEAUTY ADVISOR Work Phone: [facility] 05-24-2024 13:44-0500 Respiratory rate 16 /min June Zhang LAP WELDER.[employer] SAL[employer] BEAUTY ADVISOR Work Phone: [facility] 05-24-2024 13:44-0500 SaO2% (BldA) [Mass fraction] 97 % June Zhang LAP WELDER.[employer] SAL[employer] BEAUTY ADVISOR Work Phone: [facility] 05-24-2024 13:44-0500 Systolic blood pressure 106 mm[Hg] June Zhang LAP WELDER.[employer] SAL[employer] BEAUTY ADVISOR Work Phone: [facility] 04-06-2024 16:23-0400 Body temperature 98.1 [degF] Ann Siegel LAP WELDER.[employer] SAL[employer] BEAUTY ADVISOR Work Phone: [facility] 04-06-2024 16:23-0400 Body weight 65.8 kg Ann Praisler-Wood LAP WELDER.[employer] SALES BEAUTY ADVISOR Work Phone: [facility] 04-06-2024 16:23-0400 Diastolic blood pressure 73 mm[Hg] Ann Praisler-Wood LAP WELDER.[employer] SAL[employer] BEAUTY ADVISOR Work Phone: [facility] 04-06-2024 16:23-0400 Heart rate 45 /min Ann Praisler-Wood LAP WELDER.[employer] SAL[employer] BEAUTY ADVISOR Work Phone: [facility] 04-06-2024 16:23-0400 Respiratory rate 18 /min Ann Praisler-Wood LAP WELDER.[employer] SAL[employer] BEAUTY ADVISOR Work Phone: [facility] 04-06-2024 16:23-0400 SaO2% (BldA) [Mass fraction] 100 % Ann Praisler-Wood LAP WELDER.[employer] SALES BEAUTY ADVISOR Work Phone: [facility] 04-06-2024 16:23-0400 Systolic blood pressure 123 mm[Hg] Ann Praisler-Wood LAP WELDER.[employer] SALES BEAUTY ADVISOR Work Phone: [facility] 10-12-2023 09:50-0400 Body temperature 97.5 [degF] Jess Moomaw LAP WELDER.[employer] SALES BEAUTY ADVISOR Work Phone: [facility] 10-12-2023 09:50-0400 Body weight 65.4 kg Jess Moomaw LAP WELDER.[employer] SALES BEAUTY ADVISOR Work Phone: [facility] 10-12-2023 09:50-0400 Diastolic blood pressure 82 mm[Hg] Jess Moomaw LAP WELDER.[employer] SALES BEAUTY ADVISOR Work Phone: [facility] 10-12-2023 09:50-0400 Heart rate 66 /min Jess Moomaw LAP WELDER.[employer] SALES BEAUTY ADVISOR Work Phone: [facility] 10-12-2023 09:50-0400 Respiratory rate 16 /min Jess Moomaw LAP WELDER.[employer] SAL[employer] BEAUTY ADVISOR Work Phone: [facility] 10-12-2023 09:50-0400 SaO2% (BldA) [Mass fraction] 97 % Jess Moomaw LAP WELDER.[employer] SAL[employer] BEAUTY ADVISOR Work Phone: [facility] 10-12-2023 09:50-0400 Systolic blood pressure 128 mm[Hg] Jess Moomaw LAP WELDER.[employer] SALES BEAUTY ADVISOR Work Phone: [facility] 06-30-2022 15:38-0500 Body temperature 97.39 [degF] Pasquale Adams LAP WELDER.[employer] SAL[employer] BEAUTY ADVISOR Work Phone: [facility] 06-30-2022 15:38-0500 Body weight 61.69 kg Pasquale Adams LAP WELDER.[employer] SAL[employer] BEAUTY ADVISOR Work Phone: [facility] 06-30-2022 15:38-0500 Diastolic blood pressure 70 mm[Hg] Pasquale Adams LAP WELDER.[employer] SAL[employer] BEAUTY ADVISOR Work Phone: [facility] 06-30-2022 15:38-0500 Heart rate 60 /min Pasquale Adams LAP WELDER.[employer] SALES BEAUTY ADVISOR Work Phone: [facility] 06-30-2022 15:38-0500 Respiratory rate 16 /min Pasquale Adams LAP WELDER.[employer] SALES BEAUTY ADVISOR Work Phone: [facility] 06-30-2022 15:38-0500 SaO2% (BldA) [Mass fraction] 97 % Pasquale Adams LAP WELDER.[employer] SAL[employer] BEAUTY ADVISOR Work Phone: [facility] 06-30-2022 15:38-0500 Systolic blood pressure 118 mm[Hg] Pasquale Adams LAP WELDER.[employer] SAL[employer] BEAUTY ADVISOR Work Phone: [facility] 03-17-2022 08:45-0400 Body temperature 97.9 [degF] Arron Acevedo MD Work Phone: [facility] 03-17-2022 08:45-0400 Body weight 59.88 kg Arron Acevedo MD Work Phone: [facility] 03-17-2022 08:45-0400 Diastolic blood pressure 98 mm[Hg] Arron Acevedo MD Work Phone: [facility] 03-17-2022 08:45-0400 Heart rate 77 /min Arron Acevedo MD Work Phone: [facility] 03-17-2022 08:45-0400 Respiratory rate 18 /min Arron Acevedo MD Work Phone: [facility] 03-17-2022 08:45-0400 SaO2% (BldA) [Mass fraction] 98 % Arron Acevedo MD Work Phone: [facility] 03-17-2022 08:45-0400 Systolic blood pressure 138 mm[Hg] Arron Acevedo MD Work Phone: [facility] Encounters Encounter Date Encounter Type Care Provider Facility Start: 01-17-2025 End: 01-17-2025 Emergency department patient visit Nithin Galvin MD Work Phone: -Emergency Department Work Phone: Start: 05-24-2024 End: 05-24-2024 [facility] Facility:[facility] Start: 05-24-2024 End: 05-24-2024 Office outpatient visit 25 minutes June Zhang APRN.[employer] SAL[employer] BE[employer]Y ADVISOR Work Phone: [facility] Comment on above: Pharyngitis, unspeci fied etiology (Primary Dx); Viral upper respiratory tract infection with cough; Acute otitis media, left Start: 04-07-2024 End: 04-07-2024 Telephone encounter Marie Nelson APRN.[employer] BEAUTY ADVISOR Work Phone: [facility] Comment on above: Results Start: 04-06-2024 End: 04-06-2024 Subsequent hospital visit by physician Xr [facility] [place] Work Phone: Radiology Comment on above: Headache, unspecifie d headache type [R51.9] Start: 04-06-2024 End: 04-06-2024 [address] [facility] Facility:[facility] Start: 04-06-2024 End: 04-06-2024 Patient encounter procedure Ann Siegel APRN.[employer] BEAUTY ADVISOR Work Phone: [facility] Comment on above: Sore throat (Primary Dx); Headache, unspecified headache type Start: 01-12-2024 End: 01-12-2024 ambulatory Birdie Martinez Facility:[facility] Start: 10-12-2023 End: 10-12-2023 Patient encounter procedure Jess Bowen [employer] BE[employer] ADVISOR Work Phone: [facility] Comment on above: Pain, dental (Primar y Dx) Start: 10-12-2023 End: 10-12-2023 ambulatory BIRDIE BOWER D HANIS Facility:[facility] Start: 09-11-2023 End: 09-11-2023 Patient encounter procedure Beny Garnica DO Work Phone: [facility] Comment on above: Closed -punch int ra-articular fracture of distal radius, left, with routine healing, subsequent encounter (Primary Dx) Start: 09-11-2023 End: 09-14-2023 ambulatory BENY GARNICA V Facility:[facility] Start: 09-11-2023 End: 09-11-2023 Subsequent hospital visit by physician Maggie [facility] [place] [facility] Work Phone: Radiology Comment on above: Closed -punch int ra-articular fracture of distal radius, left, with routine healing, subsequent encounter [S52.572D] Start: 08-28-2023 End: 08-28-2023 Subsequent hospital visit by physician Maggie [facility] [place] [facility] Work Phone: Radiology Comment on above: Other closed intra-a rticular fracture of distal end of left radius, initial encounter [S52.572A] Start: 08-28-2023 End: 08-28-2023 ambulatory BENY GARNICA V Facility:[facility] Start: 08-28-2023 End: 08-28-2023 Patient encounter procedure Beny Garnica DO Work Phone: [facility] [place] Comment on above: Closed -punch int ra-articular fracture of distal radius, left, with routine healing, subsequent encounter (Primary Dx) Start: 08-07-2023 End: 08-07-2023 ambulatory BENY GARNICA V Facility:[facility] Start: 08-04-2023 End: 08-04-2023 ambulatory BRYCE CRUZ Facility:[facility] Start: 08-04-2023 End: 08-04-2023 Subsequent hospital visit by physician Maggie [facility] [place] Work Phone: Radiology Comment on above: Left ankle injury, i nitial encounter [S99.912A] Start: 08-04-2023 End: 08-04-2023 Subsequent hospital visit by physician Xr [facility] [place] Work Phone: Radiology Comment on above: Wrist injury, left, initial encounter [S69.92XA] Start: 08-04-2023 End: 08-04-2023 ambulatory BIRDIE BOWER D HANIS Facility:[facility] Start: 09-15-2022 End: 09-15-2022 ambulatory [facility] Start: 06-30-2022 End: 06-30-2022 Subsequent hospital visit by physician Xr [facility] [employer] Work Phone: Radiology Comment on above: Thumb injury, right, initial encounter [S69.91XA] Start: 06-30-2022 End: 06-30-2022 Patient encounter procedure Pasquale Lamas APRN.CNP Work Phone: [facility] Comment on above: Thumb injury, right, initial encounter (Primary Dx) Start: 03-18-2022 End: 03-18-2022 Patient encounter procedure Jakob Barreto Work Phone: Podiatry Comment on above: Foreign body (FB) in soft tissue (Primary Dx) Start: 03-17-2022 End: 03-17-2022 Subsequent hospital visit by physician Xr [facility] [place] Work Phone: Radiology Comment on above: Puncture wound of le ft foot, initial encounter [S91.332A] Start: 03-17-2022 End: 03-17-2022 Patient encounter procedure Arron Acevedo MD Work Phone: [facility] Comment on above: Puncture wound of le ft foot, initial encounter (Primary Dx) Start: 03-06-2022 End: 03-06-2022 ambulatory [facility] Procedures Date Procedure Procedure Detail Performing Clinician Start: 01-17-2025 Estimated creatinine clearance Nithin Galvin MD Work Phone: Start: 01-17-2025 Methadone measuremen t, urine Nithin Galvin MD Work Phone: Start: 04-06-2024 Radiologic exam ches t 2 views Ann Siegel LAP WELDER.[employer] BEAUTY ADVISOR Work Phone: Start: 04-06-2024 STREP A MOLECULAR (POC) [facility] Provider Start: 08-04-2023 End: 08-04-2023 Radex wrist complete minimum 3 views Bryce Cruz PA-C Work Phone: Start: 06-30-2022 Radex fingr minimum 2 views Pasquale Lamas LAP WELDER.[employer] BEAUTY ADVISOR Work Phone: Start: 03-17-2022 Radex foot complete minimum 3 views Arron Acevedo MD Work Phone: Plan of Treatment Date Care Activity Detail Author Start: 03-13-2027 Urine microalbumin profile [facility] Start: 01-17-2025 [facility] Start: 01-17-2025 Referral to service [facility] Start: 01-17-2025 End: 01-17-2025 Suicide precautions [place] Start: 03-20-2024 Covid-19 Vaccine ( season) Covid-19 Vaccine () [facility] Start: 03-20-2024 Covid-19 Vaccine ( season) Covid-19 Vaccine ( season) [facility] Start: 03-20-2024 Influenza vaccination Influenza Vacc ine (#1) [facility] Start: 07-20-2023 Depression Assessment Depression Ass essment [facility] Start: 03-20-2023 Covid-19 Vaccine ( season) Covid-19 Vaccine ( season) [facility] Start: 03-20-2023 Influenza vaccination Influenza Vacc ine (#1) [facility] Start: 2022 Anxiety Screening Anxiety Screening [facility] Start: 2022 Depression Screening Depression Scre ening [facility] Start: 2022 Hepatitis C screening Hepatitis C Sc reening [facility] Start: 2022 HIV screening HIV Screening [facility] Start: 03-20-2022 Influenza vaccination INFLUENZA (#1) [facility] Start: 10-10-2021 COVID-19 VACCINE (4 - Booster for Pfizer series) COVID-19 VACCINE (4 - Booster for Pfizer series) [facility] Start: 2020 MENINGOCOCCAL CONJUG ATE (2 - 2-dose series) MENINGOCOCCAL CONJUGATE (2 - 2-dose series) [facility] Start: 2019 HPV Vaccine (1 - Mal e 3-dose series) HPV Vaccine (1 - Male 3-dose series) [facility] Start: 2018 PEDS TO ADULT TRANSI TION ANNUAL ASSESSMENT PEDS TO ADULT TRANSITION ANNUAL ASSESSMENT [facility] Start: 2016 Adult depression screening assessment DEPRESSION SCREENING [facility] Start: 2016 PEDS TO ADULT TRANSI TION INITIAL DISCUSSION PEDS TO ADULT TRANSITION INITIAL DISCUSSION [facility] Start: 2015 HPV VACCINE (1 - Mal e 2-dose series) HPV VACCINE (1 - Male 2-dose series) [facility] Start: 2014 MENINGOCOCCAL B: Consider based on risk (1 of 2 - Risk Bexsero 2-dose series) MENINGOCOCCAL B: Consider based on risk (1 of 2 - Risk Bexsero 2-dose series) [facility] Start: 2013 HPV Vaccine (1 - Mal e 2-dose series) HPV Vaccine (1 - Male 2-dose series) [facility] Bacteria identified in Wound by Culture WOUND CULTURE AND GRAM STAIN Microbiology Routine Foreign body (FB) in soft tissue 03/18/2022 11:46 AM EDT [facility] Work Phone: COVID & INFLUENZA A/ B & RSV PCR, ROUTINE COVID & INFLUENZA A/B & RSV PCR, ROUTINE Microbiology Routine Headache, unspecified headache type Ordered: 04/06/2024 [facility] Work Phone: Comment on above: Ordered: 04/06/2024 XR Wrist - left PA a nd Lateral and Oblique XR WRIST GENERAL 3V PA/LAT/OBL LEFT Radiology Routine Other closed intra-articular fracture of distal end of left radius, initial encounter 08/28/2023 2:52 PM EST [facility] Work Phone: XR Wrist - left PA a nd Lateral and Oblique XR WRIST GENERAL 3V PA/LAT/OBL LEFT Radiology Routine Closed -punch intra-articular fracture of distal radius, left, with routine healing, subsequent encounter 09/11/2023 2:17 PM EST [facility] Work Phone: [facility] Immunizations Immunization Date Immunization Notes Care Provider Fa freddy 08-15-2021 influenza virus vacc ine, unspecified formulation Beny Garnica V, Work Phone: [facility] 03-13-2017 meningococcal polysaccharide (groups A, C, Y and W-135) diphtheria toxoid conjugate vaccine (MCV4P) Arron Acevedo MD Work Phone: [facility] Work Phone: 03-13-2017 tetanus toxoid, redu florina diphtheria toxoid, and acellular pertussis vaccine, adsorbed Arron Acevedo MD Work Phone: [facility] Work Phone: 07-29-2010 influenza virus vacc ine, unspecified formulation Arron Acevedo MD Work Phone: [facility] Work Phone: 06-27-2010 influenza virus vacc ine, unspecified formulation Arron Acevedo MD Work Phone: [facility] Work Phone: 01-26-2010 diphtheria, tetanus toxoids and acellular pertussis vaccine Arron Acevedo MD Work Phone: [facility] Work Phone: 01-26-2010 measles, mumps, rube lla, and varicella virus vaccine Arron Acevedo MD Work Phone: [facility] Work Phone: 01-26-2010 poliovirus vaccine, inactivated Arron Acevedo MD Work Phone: [facility] Work Phone: 12-25-2006 hepatitis A vaccine, pediatric/adolescent dosage, 2 dose schedule Arron Acevedo MD Work Phone: [facility] Work Phone: 02-11-2006 hepatitis A vaccine, pediatric/adolescent dosage, 2 dose schedule Arron Acevedo MD Work Phone: [facility] Work Phone: 11-12-2005 diphtheria, tetanus toxoids and acellular pertussis vaccine Arron Acevedo MD Work Phone: [facility] Work Phone: 11-12-2005 varicella virus vaccine Guero Acevedo MD Work Phone: [facility] Work Phone: 08-14-2005 haemophilus influenz ae type b conjugate and Hepatitis B vaccine Arron Acevedo MD Work Phone: [facility] Work Phone: 08-14-2005 influenza virus vacc ine, unspecified formulation Arron Acevedo MD Work Phone: [facility] Work Phone: 08-14-2005 measles, mumps and rubella virus vaccine Arron Acevedo MD Work Phone: [facility] Work Phone: 08-14-2005 pneumococcal conjuga te vaccine, 7 valent Arron Acevedo MD Work Phone: [facility] Work Phone: 06-16-2005 influenza virus vacc ine, unspecified formulation Arron Acevedo MD Work Phone: [facility] Work Phone: 05-16-2005 influenza virus vacc ine, unspecified formulation Arron Acevedo MD Work Phone: [facility] Work Phone: 05-16-2005 poliovirus vaccine, inactivated Arron Acevedo MD Work Phone: [facility] Work Phone: 02-17-2005 diphtheria, tetanus toxoids and acellular pertussis vaccine Arron Acevedo MD Work Phone: [facility] Work Phone: 02-17-2005 haemophilus influenz ae type b vaccine, HbOC conjugate Arron Acevedo MD Work Phone: [facility] Work Phone: 02-17-2005 pneumococcal conjuga te vaccine, 7 valent Arron Acevedo MD Work Phone: [facility] Work Phone: 2004 diphtheria, tetanus toxoids and acellular pertussis vaccine Arron Acevedo MD Work Phone: [facility] Work Phone: 2004 haemophilus influenz ae type b vaccine, HbOC conjugate Arron Acevedo MD Work Phone: [facility] Work Phone: 2004 pneumococcal conjuga te vaccine, 7 valent Arron Acevedo MD Work Phone: [facility] Work Phone: 2004 poliovirus vaccine, inactivated Arron Acevedo MD Work Phone: [facility] Work Phone: 2004 diphtheria, tetanus toxoids and acellular pertussis vaccine Arron Acevedo MD Work Phone: [facility] Work Phone: 2004 haemophilus influenz ae type b conjugate and Hepatitis B vaccine Arron Acevedo MD Work Phone: [facility] Work Phone: 2004 pneumococcal conjuga te vaccine, 7 valent Arron Acevedo MD Work Phone: [facility] Work Phone: 2004 poliovirus vaccine, inactivated Arron Acevedo MD Work Phone: [facility] Work Phone: 2004 hepatitis B vaccine, pediatric or pediatric/adolescent dosage Arron Acevedo MD Work Phone: [facility] Work Phone: Payers Date Payer Category Payer Unknown [id number] 2024 Self-pay 2023 Unknown [id number] 2023 Unknown [id number] 2020 Medicaid [id number] 2004 Unknown [id number] 1986 Unknown [id number] Medicaid [id number] Medicaid [id number] Unknown [id number] Unknown [id number] Unknown [id number] Social History Date Type Detail Facility Start: 03-17-2022 End: 01-17-2025 Tobacco smoking status NHIS Never smoked tobacco [facility] History of tobacco use Passive smoker [facility] Start: 03-17-2022 Tobacco use and exposure Smokeless tobacco non-user [facility] Start: 03-17-2022 End: 06-30-2022 Alcohol intake Not Asked [facility] Start: 03-17-2022 Tobacco Comment mom and step dad [facility] Start: 2004 Sex Assigned At Not on file [facility] Start: 03-07-2022 End: 03-17-2022 Exposure to SARS-CoV-2 (event) Not sure [facility] Work Phone: Start: 08-28-2023 End: 05-24-2024 Alcohol intake Lifetime non-drinker (finding) [facility] Start: 08-07-2023 End: 08-28-2023 History of Social function [facility] Start: 08-07-2023 End: 08-28-2023 Tobacco use panel [facility] National Score (1-100), lower number is lower risk 69 [facility] Start: 2004 Sex Assigned At Male W [facility] Clinical Notes 03-17-2022 to 01-17-2025 Note Date & Type Note Facility 01-17-2025 Discharge summary Note Date/Time January 17, 2025 5:15pm [facility] Medical Records Department [address] [place] [address] Emergency Department Summary 01/17/25 MR#: [id number] Acct: [id number] Name: KETAN STEWART Rep #:[id number] : 2005 19 From: Nithin Galvin MD PCP: Care Physician,No Primary Status :REG ER Location: ED ADDENDUM by Dr. Nithin Galvin MD on 01/17/25 at 1715 I was informed that the patient has been accepted at [facility]. Patient will be transferred in stable condition. 01/17/25 1715<Electronically signed by Nithin Galvin MD> Cosigner Signature (if applicable): cc: No Primary Care Physician ~* Signed HPI HPI - Psych History of Present Illness Chief Complaint: Suicidal Narrative Narrative: 19-year-old male past medical history of depression and anxiety, not on medication, presents with his father because of increasing suicidal ideation. He relates this to a break-up that he had with his girlfriend recently. He was moving his things out of the house as he lived with her previously and is currently living with his grandmother. He states he saw something on her telephone which upset him. He has not been able to stop thinking about it. According to his dad, they called a primary care provider but he was unable to be seen because the patient had called him on Thursday, approximately 2 days ago, and he states that he was having thoughts of hurting himself. Additionally, patient relates history that about a month ago, he was upset and took more ibuprofen than he was supposed to. He has partial custody of his son and he waswith him over the last 2 days, when the patient stated that he would not hurt himself while he had his son but was unsure what he might do when his son was not with him. He presents because of increasing suicidal ideation. Father reports that they called the counseling center, but he would not be able to be seen for at least 2 weeks. Patient states that he is having increasing thoughtsof suicide, and while does not have a specific plan, that he would hurt himself in any way that he could. PFSH PFS Medical History Mental health problem Home Medications ?Medication ?Instructions ?Recorded ?Last Taken ?Type NK 01/17/25 Unknown History Allergy/AdvReac Type Severity Reaction Status Date / Time No Known Allergies Allergy Verified 01/17/25 12:03 Social History Smoking Status: Never smoker ROS ROS ED ROS Narrative Review of systems positive for increasing suicidal ideation, no specific plan. No somatic symptoms, no fevers or chills, no cough, no nausea or vomiting. Increasing depression. EXAM Physical Exam Narrative Exam Narrative: Afebrile. Vital signs noted. Nontoxic-appearing. Cardiovascular examination reveals mild bradycardia. Lungs clear to auscultation bilaterally. Abdomen is soft, nontender, without guarding or rebound. Positive bowel sounds. Neurological examination is nonfocal, nonlateralizing. Psychiatric examination shows he has more of a depressed, flat affect with thoughts of suicide but no specific plan. No internal stimulation, no active hallucinations. Const Vital Signs: 01/17/25 12:03 Temperature 97.1 F L Temperature Source Temporal Pulse Rate 51 L Respiratory Rate 14 Blood Pressure 130/70 H Blood Pressure Mean 90 Pulse Ox 100 Oxygen Delivery Method Room Air MDM MDM MDM Narrative Medical decision making narrative: Differential diagnosis includes but not limited to depression with suicidal thoughts versus suicidal ideation with plan. Medical clearance labs were obtained. I reviewed his laboratory work and they are grossly unremarkable including CBC and CMP except for total bili slightly elevated at 1.86 which I think is nonspecific and cannabinoids presumptive positive, but he states that he did use marijuana recently. Ethyl alcohol negative at less than 10.1. At this point in time, I feel he is medically cleared for evaluation. He may require admission as he states last time he took ibuprofen as an overdose but was never evaluated. He denies any previous hospitalization in a psychiatric facility. I reviewed his laboratory work and he has normal white count 4.4 with hemoglobinnormal at 15.6, hematocrit 45.3. I do feel that he is medically cleared for evaluation by case management. In discussion with them, it was felt that given his increased suicidality, and his threats that he is unsure as to what would happen now that he does not have his son with him, they recommended placement. He is currently pending placement at psychiatric facility and will be signed outto the oncoming physician to ensure transfer. Patient is in stable condition. History & Record Review Discussion w/independent historian: Patient and Family (Father) Additional record(s) reviewed:: No prior records Lab Data Attestation: I reviewed the patient's lab results. Labs: Laboratory Results - last 24 hr 01/17/25 12:55 WBC 4.4 RBC 5.14 Hgb 15.6 Hct 45.3 MCV 88.1 MCH 30.4 MCHC 34.4 RDW Std Deviation 37.8 RDW Coeff of Elena 11.7 Plt Count 241 MPV 9.5 Immature Gran % (Auto) 0.500 Neut % (Auto) 56.9 Lymph % (Auto) 30.2 Oceana % (Auto) 10.4 H Eos % (Auto) 0.9 Baso % (Auto) 1.1 H Absolute Neuts (auto) 2.5 Absolute Lymphs (auto) 1.33 Nucleated RBC % 0 Sodium 136 Potassium 4.0 Chloride 99 Carbon Dioxide 24.2 Anion Gap 13 BUN 12 Creatinine 1.02 Estim Creat Clear Calc 104.58 Est GFR (MDRD) Non-Af 108 BUN/Creatinine Ratio 11.4 Glucose 86 Calcium 9.3 Total Bilirubin 1.86 H AST 17 ALT < 5 Alkaline Phosphatase 72 Total Protein 7.6 Albumin 4.9 Globulin 2.8 Albumin/Globulin Ratio 1.8 Urine Opiates Screen NEGATIVE U Buprenorphine Qual NEGATIVE Ur Oxycodone Screen NEGATIVE Urine Methadone Screen NEGATIVE Urine Fentanyl Screen NEGATIVE Ur Barbiturates Screen NEGATIVE Ur Phencyclidine Scrn NEGATIVE Ur Amphetamines Screen NEGATIVE U Benzodiazepines Scrn NEGATIVE Urine Cocaine Screen NEGATIVE U Cannabinoids Screen PRESUMPTIVE POSITIVE Ethyl Alcohol < 10.1 Discharge Plan Triage Chief Complaint: Suicidal ED Provider: Nithin Galvin Dx/Rx/DC Orders Prescriptions: No Action NK Primary Care Provider: Care Physician,No Primary Referrals: Care Physician,No Primary [Primary Care Provider] - Print Language: Tanzanian What to do if you have Problems For any increased pain, shortness of breath, bleeding, nausea or vomiting, chestpain, or any unexpected problems, contact your Primary Care Provider. Call [facility] ([phone]) or report to the closest Emergency Room. Call 911 if necessary. 01/17/25 1558 <Electronically signed by Nithin Galvin MD> Cosigner Signature (if applicable): CC: No Primary Care Physician ~ Signed [place] Work Phone: [phone] 235-555307-01-2025 Discharge summary [facility] Medical Records Department [address] [place] [address] Emergency Department Summary 01/17/25 MR#: [id number] Acct: [id number] Name: KETAN STEWART Rep #:[id number] : 2005 19 From: Nithin Galvin MD PCP: Care Physician,No Primary Status :REG ER Location: ED ADDENDUM by Dr. Nithin Galvin MD on 01/17/25 at 1715 I was informed that the patient has been accepted at [facility]. Patient will be transferred in stable condition. 01/17/25 1715 Cosigner Signature (if applicable): cc: No Primary Care Physician ~* Signed HPI HPI - Psych History of Present Illness Chief Complaint: Suicidal Narrative Narrative: 19-year-old male past medical history of depression and anxiety, not on medication, presents with his father because of increasing suicidal ideation. He relates this to a break-up that he had with his girlfriend recently. He was moving his things out of the house as he lived with her previously andis currently living with his grandmother. He states he saw something on her telephone which upset him. He has not been able to stop thinking about it. According to his dad, they called a primary careprovider but he was unable to be seen because the patient had called him on Thursday, approximately 2days ago, and he states that he was having thoughts of hurting himself. Additionally, patient relates history that about a month ago, he was upset and took more ibuprofen than he was supposed to. He has partial custody of his son and he waswith him over the last 2 days, when the patient stated thathe would not hurt himself while he had his son but was unsure what he might do when his son was notwith him. He presents because of increasing suicidal ideation. Father reports that they called the counseling center, but he would not be able to be seen for at least 2 weeks. Patient states that he is having increasing thoughtsof suicide, and while does not have a specific plan, that he would hurthimself in any way that he could. [facility] Medical History Mental health problem Home Medications ?Medication ?Instructions ?Recorded ?Last Taken ?Type NK 01/17/25 Unknown History Allergy/AdvReac Type Severity Reaction Status Date / Time No Known Allergies Allergy Verified 01/17/25 12:03 Social History Smoking Status: Never smoker ROS ROS ED ROS Narrative Review of systems positive for increasing suicidal ideation, no specific plan. No somatic symptoms,no fevers or chills, no cough, no nausea or vomiting. Increasing depression. EXAM Physical Exam Narrative Exam Narrative: Afebrile. Vital signs noted. Nontoxic-appearing. Cardiovascular examination reveals mild bradycardia. Lungs clear to auscultation bilaterally. Abdomen is soft, nontender, without guarding or rebound.Positive bowel sounds. Neurological examination is nonfocal, nonlateralizing. Psychiatric examination shows he has more of a depressed, flat affect with thoughts of suicide but no specific plan. No internal stimulation, no active hallucinations. Const Vital Signs: 01/17/25 12:03 Temperature 97.1 F L Temperature Source Temporal Pulse Rate 51 L Respiratory Rate 14 Blood Pressure 130/70 H Blood Pressure Mean 90 Pulse Ox 100 Oxygen Delivery Method Room Air MDM MDM MDM Narrative Medical decision making narrative: Differential diagnosis includes but not limited to depression with suicidal thoughts versus suicidal ideation with plan. Medical clearance labs were obtained. I reviewed his laboratory work and they are grossly unremarkable including CBC and CMP except for total bili slightly elevated at 1.86 whichI think is nonspecific and cannabinoids presumptive positive, but he states that he did use marijuana recently. Ethyl alcohol negative at less than 10.1. At this point in time, I feel he is medicallycleared for evaluation. He may require admission as he states last time he took ibuprofen as an overdose but was never evaluated. He denies any previous hospitalization in a psychiatric facility. I reviewed his laboratory work and he has normal white count 4.4 with hemoglobinnormal at 15.6, hematocrit 45.3. I do feel that he is medically cleared for evaluation by case management. In discussion with them, it was felt that given his increased suicidality, and his threats that he is unsure as to what would happen now that he does not have his son with him, they recommended placement. He is currently pending placement at psychiatric facility and will be signed outto the oncoming physician to ensure transfer. Patient is in stable condition. History & Record Review Discussion w/independent historian: Patient and Family (Father) Additional record(s) reviewed:: No prior records Lab Data Attestation: I reviewed the patient's lab results. Labs: Laboratory Results - last 24 hr 01/17/25 12:55 WBC 4.4 RBC 5.14 Hgb 15.6 Hct 45.3 MCV 88.1 MCH 30.4 MCHC 34.4 RDW Std Deviation 37.8 RDW Coeff of Elena 11.7 Plt Count 241 MPV 9.5 Immature Gran % (Auto) 0.500 Neut % (Auto) 56.9 Lymph % (Auto) 30.2 Oceana % (Auto) 10.4 H Eos % (Auto) 0.9 Baso % (Auto) 1.1 H Absolute Neuts (auto) 2.5 Absolute Lymphs (auto) 1.33 Nucleated RBC % 0 Sodium 136 Potassium 4.0 Chloride 99 Carbon Dioxide 24.2 Anion Gap 13 BUN 12 Creatinine 1.02 Estim Creat Clear Calc 104.58 Est GFR (MDRD) Non-Af 108 BUN/Creatinine Ratio 11.4 Glucose 86 Calcium 9.3 Total Bilirubin 1.86 H AST 17 ALT < 5 Alkaline Phosphatase 72 Total Protein 7.6 Albumin 4.9 Globulin 2.8 Albumin/Globulin Ratio 1.8 Urine Opiates Screen NEGATIVE U Buprenorphine Qual NEGATIVE Ur Oxycodone Screen NEGATIVE Urine Methadone Screen NEGATIVE Urine Fentanyl Screen NEGATIVE Ur Barbiturates Screen NEGATIVE Ur Phencyclidine Scrn NEGATIVE Ur Amphetamines Screen NEGATIVE U Benzodiazepines Scrn NEGATIVE Urine Cocaine Screen NEGATIVE U Cannabinoids Screen PRESUMPTIVE POSITIVE Ethyl Alcohol < 10.1 Discharge Plan Triage Chief Complaint: Suicidal ED Provider: Nithin Galvin Dx/Rx/DC Orders Prescriptions: No Action NK Primary Care Provider: Care Physician,No Primary Referrals: Care Physician,No Primary [Primary Care Provider] - Print Language: Tanzanian What to do if you have Problems For any increased pain, shortness of breath, bleeding, nausea or vomiting, chestpain, or any unexpected problems, contact your Primary Care Provider. Call [facility] ([phone]) or report tothe closest Emergency Room. Call 911 if necessary. 01/17/25 1558 Cosigner Signature (if applicable): CC: No Primary Care Physician ~ Signed [place]11-05-2024 NoteHNO ID: [id number] Author: JUNE ZHANG APRN.[employer] Service: ? Author Type: Nurse Practitioner Type: Progress Notes Filed: 05/24/2024 13:55 Note Text: This note was created using [employer]. Subjective Ketan Stewart is a 18 year old male. HPI by patient: Ketan Stewart is a 18 year old presenting to the office with the complaint of viral symptoms. Started approximately 6 days ago, last Thursday. Associated symptoms include sore throat, cough, congestion, headache, fatigue, and ear pressure. Denies fever. Covid Immunization Dates Overdue - Covid-19 Vaccine ( season) Overdue since 03/20/2024 08/15/2021 Imm Admin: COVID-19 original vaccine, age 12+ yr, monovalent (PFIZER-BIONTECH - IBANEZ TOP) 11/30/2020 Imm Admin: COVID-19 original vaccine, age 12+ yr, monovalent (PFIZER-BIONTECH - PURPLE TOP) 11/09/2020 Imm Admin: COVID-19 original vaccine, age 12+ yr, monovalent (PFIZER-BIONTECH - PURPLE TOP) Sick contacts: yes. Smoking history/second hand smoke: none. OTC not helping. No antibiotic use in the last 60 days. ALLERGIES No Known Allergies No family history on file. Social History Tobacco Use Smoking status: Never Passive exposure: Yes Smokeless tobacco: Never Tobacco comments: mom and step dad Vaping Use Vaping status: Never Used Alcohol use: Never Drug use: Never Active Ambulatory Problems No Active Ambulatory Problems Resolved Ambulatory Problems No Resolved Ambulatory Problems Past Medical History: No date: NEGATIVE MEDICAL HISTORY Review of Systems Constitutional: Positive for fatigue. Negative for fever. HENT: Positive for congestion, ear pain and sore throat. Eyes: Negative. Respiratory: Positive for cough. Cardiovascular: Negative. Gastrointestinal: Negative. Endocrine: Negative. Genitourinary: Negative. Musculoskeletal: Negative. Skin: Negative. Neurological: Negative. Objective BP 106/60 Pulse 80 Temp 36.7 ?C (98 ?F) Resp 16 Wt 67.9 kg (149 lb 11.1 oz) SpO2 97% Physical Exam Vitals reviewed. Constitutional: General: He is awake. He is not in acute distress. Appearance: He is not ill-appearing, toxic-appearing or diaphoretic. HENT: Head: Normocephalic and atraumatic. Right Ear: Ear canal and external ear normal. Tympanic membrane is erythematous. Tympanic membrane is not bulging. Left Ear: Ear canal and external ear normal. Tympanic membrane is erythematous and bulging. Nose: Rhinorrhea present. Right Sinus: No maxillary sinus tenderness or frontal sinus tenderness. Left Sinus: No maxillary sinus tenderness or frontal sinus tenderness. Mouth/Throat: Mouth: Mucous membranes are moist. Pharynx: Oropharynx is clear. No pharyngeal swelling, oropharyngeal exudate or posterior oropharyngeal erythema. Cardiovascular: Rate and Rhythm: Normal rate and regular rhythm. Pulmonary: Effort: Pulmonary effort is normal. Breath sounds: Normal breath sounds. Lymphadenopathy: Head: Right side of head: No submandibular or tonsillar adenopathy. Left side of head: No submandibular or tonsillar adenopathy. Cervical: No cervical adenopathy. Neurological: Mental Status: He is alert. Psychiatric: Behavior: Behavior is cooperative. Assessment and Plan (J02.9) Pharyngitis, unspecified etiology (primary encounter diagnosis) (J06.9) Viral upper respiratory tract infection with cough Plan: Tqvoehzdhygrbkc-Minerbvhw-RT (BROMFED DM) 2-30-10 mg/5 mL syrup, fluticasone (FLONASE) 50 mcg/actuation nasal spray (H66.92) Acute otitis media, left Plan: amoxicillin (AMOXIL) 875 mg tablet Education on viral vs bacterial infections. Most viral infections will last 10 days, sometimes 14. It is possible to have back to back viral infections. An antibiotic will not treat a virus. -Viral symptoms for almost 1 week, now with left otitis media, will treat with amoxicillin for the ear. -Did not want viral testing done. -Bromfed for cough/congestion. -Drink lots of fluids and get plenty of rest. Gargle with salt water 3 times/day. -Vaporizers, cool mist humidifiers, warm showers, and warm fluids help open respiratory and sinus passages. Clean humidifiers daily. -OTC tylenol/ibuprofen as directed on the bottle. -Saline nasal spray as needed. Flonase twice daily can help reduce inflammation through the sinus cavities. -Make follow up with primary care for monitoring and resolution in symptoms. -Signs that warrant an ER evaluation: Sudden change/worsening in condition, lethargy, signs of dehydration, fever greater than 102 F that is not responding to Tylenol or ibuprofen (Motrin, Advil), drooling, difficulty swallowing, difficulty breathing, shortness of breath, chest pain, evidence of airway compromise (tripod position, neck extension, retractions), seizures, changes in mental status, or other concerns. The patient will pursue further outpatient evaluation with the primary care physician o (more content not included)...[facility]11-05-2024 History of Present illness Narrative* June Zhang APRN.[employer] ADVISOR - 05/24/2024 1:43 PM EST This note was created using GloPos Technologyriter. Subjective Ketan Stewart is a 18 year old male. HPI by patient: Ketan Stewart is a 18 year old presenting to the office with the complaint of viral symptoms. Started approximately 6 days ago, last Thursday. Associated symptoms include sore throat, cough, congestion, headache, fatigue, and ear pressure. Denies fever. Covid Immunization Dates Overdue - Covid-19 Vaccine ( season) Overdue since 03/20/2024 08/15/2021 Imm Admin: COVID-19 original vaccine, age 12+ yr, monovalent (PFIZER-BIONTECH - IBANEZ TOP) 11/30/2020 Imm Admin: COVID-19 original vaccine, age 12+ yr, monovalent (PFIZER-BIONTECH - PURPLE TOP) 11/09/2020 Imm Admin: COVID-19 original vaccine, age 12+ yr, monovalent (PFIZER-BIONTECH - PURPLE TOP) Sick contacts: yes. Smoking history/second hand smoke: none. OTC not helping. No antibiotic use in the last 60 days. ALLERGIES No Known Allergies No family history on file. Social History Tobacco Use Smoking status: Never Passive exposure: Yes Smokeless tobacco: Never Tobacco comments: mom and step dad Vaping Use Vaping status: Never Used Alcohol use: Never Drug use: Never Active Ambulatory Problems No Active Ambulatory Problems Resolved Ambulatory Problems No Resolved Ambulatory Problems Past Medical History: No date: NEGATIVE MEDICAL HISTORY Review of Systems Constitutional: Positive for fatigue. Negative for fever. HENT: Positive for congestion, ear pain and sore throat. Eyes: Negative. Respiratory: Positive for cough. Cardiovascular: Negative. Gastrointestinal: Negative. Endocrine: Negative. Genitourinary: Negative. Musculoskeletal: Negative. Skin: Negative. Neurological: Negative. Objective BP 106/60 Pulse 80 Temp 36.7 C (98 F) Resp 16 Wt 67.9 kg (149 lb 11.1 oz) SpO2 97% Physical Exam Vitals reviewed. Constitutional: General: He is awake. He is not in acute distress. Appearance: He is not ill-appearing, toxic-appearing or diaphoretic. HENT: Head: Normocephalic and atraumatic. Right Ear: Ear canal and external ear normal. Tympanic membrane is erythematous. Tympanic membrane is not bulging. Left Ear: Ear canal and external ear normal. Tympanic membrane is erythematous and bulging. Nose: Rhinorrhea present. Right Sinus: No maxillary sinus tenderness or frontal sinus tenderness. Left Sinus: No maxillary sinus tenderness or frontal sinus tenderness. Mouth/Throat: Mouth: Mucous membranes are moist. Pharynx: Oropharynx is clear. No pharyngeal swelling, oropharyngeal exudate or posterior oropharyngeal erythema. Cardiovascular: Rate and Rhythm: Normal rate and regular rhythm. Pulmonary: Effort: Pulmonary effort is normal. Breath sounds: Normal breath sounds. Lymphadenopathy: Head: Right side of head: No submandibular or tonsillar adenopathy. Left side of head: No submandibular or tonsillar adenopathy. Cervical: No cervical adenopathy. Neurological: Mental Status: He is alert. Psychiatric: Behavior: Behavior is cooperative. Assessment and Plan (J02.9) Pharyngitis, unspecified etiology (primary encounter diagnosis) (J06.9) Viral upper respiratory tract infection with cough Plan: Fqucspnzgggcmmm-Gghybmyru-RF (BROMFED DM) 2-30-10 mg/5 mL syrup, fluticasone (FLONASE) 50 mcg/actuation nasal spray (H66.92) Acute otitis media, left Plan: amoxicillin (AMOXIL) 875 mg tablet Education on viral vs bacterial infections. Most viral infections will last 10 days, sometimes 14. It is possible to have back to back viral infections. An antibiotic will not treat a virus. -Viral symptoms for almost 1 week, now with left otitis media, will treat with amoxicillin for the ear. -Did not want viral testing done. -Bromfed for cough/congestion. -Drink lots of fluids and get plenty of rest. Gargle with salt water 3 times/day. -Vaporizers, cool mist humidifiers, warm showers, and warm fluids help open respiratory and sinus passages. Clean humidifiers daily. -OTC tylenol/ibuprofen as directed on the bottle. -Saline nasal spray as needed. Flonase twice daily can help reduce inflammation through the sinus cavities. -Make follow up with primary care for monitoring and resolution in symptoms. -Signs that warrant an ER evaluation: Sudden change/worsening in condition, lethargy, signs of dehydration, fever greater than 102 F thatis not responding to Tylenol or ibuprofen (Motrin, Advil), drooling, difficulty swallowing, difficulty breathing, shortness of breath, chest pain, evidence of airway compromise (tripod position, neck extension, retractions), seizures, changes in mental status, or other concerns. The patient will pursue further outpatient evaluation with the primary care physician or another Urgent Care/Express Care as outlined in the after visit summary. The patient is agreeable to this planof care and follow-up instructions have been explained in detail. The patient has received these instructions in written format and have expressed an understanding of the after visit summary. Medical Decision Making: Level: 4 - Moderate I spent a total of 20 minutes on the date of the service which included preparing to see the patient, avau-ye-dazi patient care, completing clinical documentation, obtaining and/or reviewing separately obtained history, performing a medically appropriate examination, counseling and educating the pat ient/family/caregiver, and ordering medications, tests, or procedures. documented in this encounterUniversity [facility]11-05-2024 Instructions* Patient Instructions* June Zhang APRN.CNP - 05/24/2024 1:43 PM EST (J02.9) Pharyngitis, unspecified etiology (primary encounter diagnosis) (J06.9) Viral upper respiratory tract infection with cough Plan: Zzjoogcbuhuycrp-Xyopmfogh-QR (BROMFED DM) 2-30-10 mg/5 mL syrup, fluticasone (FLONASE) 50 mcg/actuation nasal spray (H66.92) Acute otitis media, left Plan: amoxicillin (AMOXIL) 875 mg tablet Education on viral vs bacterial infections. Most viral infections will last 10 days, sometimes 14. It is possible to have back to back viral infections. An antibiotic will not treat a virus. -Viral symptoms for almost 1 week, now with left otitis media, will treat with amoxicillin for the ear. -Bromfed for cough/congestion. -Drink lots of fluids and get plenty of rest. Gargle with salt water 3 times/day. -Vaporizers, cool mist humidifiers, warm showers, and warm fluids help open respiratory and sinus passages. Clean humidifiers daily. -OTC tylenol/ibuprofen as directed on the bottle. -Saline nasal spray as needed. Flonase twice daily can help reduce inflammation through the sinus cavities. -Make follow up with primary care for monitoring and resolution in symptoms. -Signs that warrant an ER evaluation: Sudden change/worsening in condition, lethargy, signs of dehydration, fever greater than 102 F thatis not responding to Tylenol or ibuprofen (Motrin, Advil), drooling, difficulty swallowing, difficulty breathing, shortness of breath, chest pain, evidence of airway compromise (tripod position, neck extension, retractions), seizures, changes in mental status, or other concerns. documented in this encounterUniversity [facility]als [facility]09-19-2024 Telephone encounter Note * Telephone Encounter - Jing Miner MA - 04/07/2024 8:03 AM EDT Patient notified. Jing Miner MA [facility]09-19-2024 Miscellaneous Notes* Telephone Encounter - Jing Miner MA - 04/07/2024 8:03 AM EDT Patient notified. Jing Miner MA * Telephone Encounter - Marie Nelson APRN.CNP - 04/07/2024 7:12 AM EDT You tested negative for COVID, Influenza, and RSV. Please contact us if your symptoms are worseningor not improving. Please advise. documented in this encounterUniversity Hospitals [facility]09-19-2024 Telephone encounter Note * Telephone Encounter - Marie Nelson APRN.CNP - 04/07/2024 7:12 AM EDT You tested negative for COVID, Influenza, and RSV. Please contact us if your symptoms are worseningor not improving. Please advise. [facility] Work Phone: [phone]) 630-693509-18-2024 Instructions* Patient Instructions* Ann Siegel APRN.CNP - 04/06/2024 5:38 PM EDT ASSESSMENT/PLAN: 1. Sore throat - ICD9: 462, ICD10: J02.9 (primary diagnosis) - suspect viral - Group A strep molecular testing negative - Discussed supportive care treatment with fluids, rest and analgesia. - STREP A MOLECULAR (POC) 2. Headache, unspecified headache type - ICD9: 784.0, ICD10: R51.9 - recommend using tylenol and/or ibuprofen for headache pain. - XR CHEST 2V FRONTAL/LAT IMPRESSION: No acute radiographic abnormality. Ocean Export Coordinator: MAKEDA Transcribe Date/Time: Apr 06 2024 5:33P Dictated by : CAMILLE HUNTER MD - COVID & INFLUENZA A/B & RSV PCR, ROUTINE - Follow-up with your PCP in 3-5 days if symptoms have not improved or sooner if symptoms worsen - Discussed red flags and need for immediate medical evaluation if any occur. - Discussed supportive care treatment with fluids, rest and analgesia. - Discussed expected course of illness Ann Siegel APRN.[employer] ADVISOR Treatment for Viral Upper Respiratory Tract Infections Your body will kill off the virus by itself. Additionally, you can prime your body's immune system.This may help you get better more quickly. Drink lots of fluids Make sure you are eating well Get plenty of rest We do not have any medications that kill off these viruses. Antibiotics are used to treat bacterialinfections; however, they are not active against viral infections. There are some things that mighthelp you feel better, though. Vaporizers, humidifiers, hot showers, and hot fluids help open respiratory and sinus passages Bowie Nasal Freer may offer relief of nasal and head congestion Yusuf's Vapor Rub may relieve congestion Tylenol and Advil help control fevers and headaches Salt water gargles help relieve sore throats Chloraceptic spray or throat lozenges may also help relieve sore throat symptoms Occasionally, viral infections turn into something more serious. You should see your doctor or return to the Urgent Care if: You have fevers for longer than five days You have fevers above 102 degrees You are still sick after 10 days You have shortness of breath or wheezing After several days you are getting worse rather than better documented in this encounterUniversity Hospitals [facility] Center09-18-2024 History of Present illness Narrative* Jean-Pierre Flores RT(R) - 04/06/2024 4:50 PM EDT Radiology Service Progress Note PATIENT NAME: Ketan Stewart DATE OF SERVICE: April 06, 2024 TIME: 5:18 PM PATIENT IDENTITY VERIFICATION COMPLETED USING TWO (2) IDENTIFIERS: Name and Date of confirmedby patient verbally. FALL SCREENING: Has the patient had 2 falls in the last year or 1 fall with injury or currently using an Ambulatory Assistive Device (Walker, Cane, Wheelchair, Crutches, etc.)? No PATIENT GENDER DATA: Male PATIENT RELEVANT IMPLANT DATA REVIEWED: Yes PATIENT PRESENTS WITH AN IMPLANTABLE OR ATTACHED COOKER HELPER: No RADIOLOGY DEPARTMENT: General X-ray: Exam(s) Completed: Chest X-Ray PERIPHERAL IV DATA: Not applicable SIGNED BY: RT Vita(Cara) April 06, 2024 5:18 PM documented in this encounterUniversity Hospitals Cleveland [facility] Center09-18-2024 NoteHNO ID: [id number] Author: JEAN-PIERRE FLORES RT(R) Service: ? Author Type: Patroller Type: Progress Notes Filed: 04/06/2024 17:23 Note Text: Radiology Service Progress Note PATIENT NAME: Ketan Stewart DATE OF SERVICE: April 06, 2024 TIME: 5:18 PM PATIENT IDENTITY VERIFICATION COMPLETED USING TWO (2) IDENTIFIERS: Name and Date of confirmed by patient verbally. FALL SCREENING: Has the patient had 2 falls in the last year or 1 fall with injury or currently using an Ambulatory Assistive Device (Walker, Cane, Wheelchair, Crutches, etc.)? No PATIENT GENDER DATA: Male PATIENT RELEVANT IMPLANT DATA REVIEWED: Yes PATIENT PRESENTS WITH AN IMPLANTABLE OR ATTACHED COOKER HELPER: No RADIOLOGY DEPARTMENT: General X-ray: Exam(s) Completed: Chest X-Ray PERIPHERAL IV DATA: Not applicable SIGNED BY: RT Vita(Cara) April 06, 2024 5:18 [facility]09-18-2024 NoteHNO ID: [id number] Author: ANN SIEGEL APRN.[employer] ADVISOR Service: ? Author Type: Nurse Practitioner Type: Progress Notes Filed: 04/06/2024 17:42 Note Text: Subjective Headache Pertinent negatives include no fever, no shortness of breath, no nausea and no vomiting. Ketan Stewart is a 18 year old male who presents with 4 days of headache, had had a sore throat and stomach ache today. He has also been having nasal congestion and drainage. He has not had a fever. He notes being exposed to pneumonia in a friend of his recently. He rates his headache pain 4/10 currently. He has not taken any medication at home for his headache. Review of Systems Constitutional: Negative for chills and fever. HENT: Positive for congestion and sore throat. Negative for ear pain. Respiratory: Negative for cough and shortness of breath. Cardiovascular: Negative. Gastrointestinal: Positive for abdominal pain. Negative for diarrhea, nausea and vomiting. Neurological: Positive for headaches. BP 123/73 Pulse (!) 45 Temp 36.7 ?C (98.1 ?F) Resp 18 Wt 65.8 kg (145 lb 1 oz) SpO2 100% PAST MEDICAL HISTORY Diagnosis Date NEGATIVE MEDICAL HISTORY No past surgical history on file. ALLERGIES Patient has no known allergies. MEDICATIONS naproxen (NAPROSYN) 500 mg tablet Take 1 tablet by mouth two times a day as needed for pain (for pain/inflammation) for up to 20 doses. Take with food. (Patient not taking: Reported on 04/06/2024) cephALEXin (KEFLEX) 500 mg capsule Take 1 capsule by mouth three times daily. (Patient not taking: Reported on 06/30/2022) No family history on file. Social History Tobacco Use Smoking status: Never Passive exposure: Yes Smokeless tobacco: Never Tobacco comments: mom and step dad Vaping Use Vaping status: Never Used Substance Use Topics Alcohol use: Never Drug use: Never Objective Physical Exam Vitals and nursing note reviewed. Constitutional: Appearance: Normal appearance. HENT: Right Ear: Tympanic membrane, ear canal and external ear normal. Left Ear: Tympanic membrane, ear canal and external ear normal. Nose: Nose normal. Mouth/Throat: Lips: [place]. Mouth: Mucous membranes are moist. Pharynx: Oropharynx is clear. Uvula midline. Posterior oropharyngeal erythema, uvula swelling and postnasal drip present. No oropharyngeal exudate. Tonsils: No tonsillar exudate or tonsillar abscesses. Cardiovascular: Rate and Rhythm: Normal rate and regular rhythm. Heart sounds: Normal heart sounds. Pulmonary: Effort: Pulmonary effort is normal. No respiratory distress. Breath sounds: Normal breath sounds. No wheezing or rales. Musculoskeletal: Cervical back: Neck supple. Lymphadenopathy: Cervical: No cervical adenopathy. Skin: General: Skin is warm and dry. Findings: No erythema or rash. Neurological: Mental Status: He is alert. ASSESSMENT/PLAN: 1. Sore throat - ICD9: 462, ICD10: J02.9 (primary diagnosis) - suspect viral - Group A strep molecular testing negative - Discussed supportive care treatment with fluids, rest and analgesia. - STREP A MOLECULAR (POC) 2. Headache, unspecified headache type - ICD9: 784.0, ICD10: R51.9 - recommend using tylenol and/or ibuprofen for headache pain. - XR CHEST 2V FRONTAL/LAT IMPRESSION: No acute radiographic abnormality. Ocean Export Coordinator: MAKEDA Transcribe Date/Time: Apr 06 2024 5:33P Dictated by : CAMILLE HUNTER MD - COVID AND INFLUENZA A/B AND RSV PCR, ROUTINE - Follow-up with your PCP in 3-5 days if symptoms have not improved or sooner if symptoms worsen - Discussed red flags and need for immediate medical evaluation if any occur. - Discussed supportive care treatment with fluids, rest and analgesia. - Discussed expected course of illness Ann Siegel APRN.[facility]09-18-2024 History of Present illness Narrative* Ann Siegel APRN.[employer] ADVISOR - 04/06/2024 4:29 PM EDT Subjective Headache Pertinent negatives include no fever, no shortness of breath, no nausea and no vomiting. Ketan Stewart is a 18 year old male who presents with 4 days of headache, had had a sore throatand stomach ache today. He has also been having nasal congestion and drainage. He has not had a fever. He notes being exposed to pneumonia in a friend of his recently. He rates his headache pain 4/10 currently. He has not taken any medication at home for his headache. Review of Systems Constitutional: Negative for chills and fever. HENT: Positive for congestion and sore throat. Negative for ear pain. Respiratory: Negative for cough and shortness of breath. Cardiovascular: Negative. Gastrointestinal: Positive for abdominal pain. Negative for diarrhea, nausea and vomiting. Neurological: Positive for headaches. BP 123/73 Pulse (!) 45 Temp 36.7 C (98.1 F) Resp 18 Wt 65.8 kg (145 lb 1 oz) SpO2 100% PAST MEDICAL HISTORY Diagnosis Date NEGATIVE MEDICAL HISTORY No past surgical history on file. ALLERGIES Patient has no known allergies. MEDICATIONS naproxen (NAPROSYN) 500 mg tablet Take 1 tablet by mouth two times a day as needed for pain (for pain/inflammation) for up to 20 doses. Take with food. (Patient not taking: Reported on 04/06/2024) cephALEXin (KEFLEX) 500 mg capsule Take 1 capsule by mouth three times daily. (Patient not taking: Reported on 06/30/2022) No family history on file. Social History Tobacco Use Smoking status: Never Passive exposure: Yes Smokeless tobacco: Never Tobacco comments: mom and step dad Vaping Use Vaping status: Never Used Substance Use Topics Alcohol use: Never Drug use: Never Objective Physical Exam Vitals and nursing note reviewed. Constitutional: Appearance: Normal appearance. HENT: Right Ear: Tympanic membrane, ear canal and external ear normal. Left Ear: Tympanic membrane, ear canal and external ear normal. Nose: Nose normal. Mouth/Throat: Lips: [place]. Mouth: Mucous membranes are moist. Pharynx: Oropharynx is clear. Uvula midline. Posterior oropharyngeal erythema, uvula swelling and postnasal drip present. No oropharyngeal exudate. Tonsils: No tonsillar exudate or tonsillar abscesses. Cardiovascular: Rate and Rhythm: Normal rate and regular rhythm. Heart sounds: Normal heart sounds. Pulmonary: Effort: Pulmonary effort is normal. No respiratory distress. Breath sounds: Normal breath sounds. No wheezing or rales. Musculoskeletal: Cervical back: Neck supple. Lymphadenopathy: Cervical: No cervical adenopathy. Skin: General: Skin is warm and dry. Findings: No erythema or rash. Neurological: Mental Status: He is alert. ASSESSMENT/PLAN: 1. Sore throat - ICD9: 462, ICD10: J02.9 (primary diagnosis) - suspect viral - Group A strep molecular testing negative - Discussed supportive care treatment with fluids, rest and analgesia. - STREP A MOLECULAR (POC) 2. Headache, unspecified headache type - ICD9: 784.0, ICD10: R51.9 - recommend using tylenol and/or ibuprofen for headache pain. - XR CHEST 2V FRONTAL/LAT IMPRESSION: No acute radiographic abnormality. Ocean Export Coordinator: MAKEDA Transcribe Date/Time: Apr 06 2024 5:33P Dictated by : CAMILLE HUNTER MD - COVID & INFLUENZA A/B & RSV PCR, ROUTINE - Follow-up with your PCP in 3-5 days if symptoms have not improved or sooner if symptoms worsen - Discussed red flags and need for immediate medical evaluation if any occur. - Discussed supportive care treatment with fluids, rest and analgesia. - Discussed expected course of illness Ann Siegel APRN.CNP documented in this encounterUniversity Hospitals [facility] Center03-25-2024 NoteHNO ID: [id number] Author: JESS BOWEN APRN.CNP Service: ? Author Type: Nurse Practitioner Type: Progress Notes Filed: 10/12/2023 10:01 Note Text: This note was created using GloPos Technologyriter. Subjective Ketan Stewart is a 18 year old male. Review of Systems HENT: Positive for dental problem. All other systems reviewed and are negative. Pt complains of dental pain in the region of tooth #32. Will schedule with a dentist tomorrow. Objective BP 128/82 Pulse 66 Temp 36.4 ?C (97.5 ?F) (Tympanic) Resp 16 Wt 65.4 kg (144 lb 2.9 oz) SpO2 97% Physical Exam Vitals and nursing note reviewed. Constitutional: General: He is not in acute distress. Appearance: Normal appearance. He is not ill-appearing. HENT: Head: Normocephalic. Mouth/Throat: Mouth: Mucous membranes are moist. Comments: No obvious dental caries noted. No obvious sign of periodontal abscess. No swelling in the pharynx. Eyes: Conjunctiva/sclera: Conjunctivae normal. Cardiovascular: Rate and Rhythm: Normal rate and regular rhythm. Pulmonary: Effort: Pulmonary effort is normal. Breath sounds: Normal breath sounds. Musculoskeletal: General: Normal range of motion. Cervical back: Normal range of motion. Skin: General: Skin is warm and dry. Neurological: General: No focal deficit present. Mental Status: He is alert. Psychiatric: Mood and Affect: Mood normal. Behavior: Behavior normal. Assessment and Plan ASSESSMENT/PLAN: 1. Pain, dental - ICD9: 525.9, ICD10: K08.89 Patient will follow-up with dentistry tomorrow and arrange for an appointment. I did not see any need for antibiotic at this time and patient was comfortable with a prescription for naproxen. - NAPROXEN 500 MG TABLET Jess Bowen APRN.CNP Problem List Items Addressed This Visit [facility]03-25-2024 History of Present illness Narrative* Jess Bowen APRN.CNP - 10/12/2023 9:54 AM EDT This note was created using [employer]. Subjective Ketan Stewart is a 18 year old male. Review of Systems HENT: Positive for dental problem. All other systems reviewed and are negative. Pt complains of dental pain in the region of tooth #32. Will schedule with a dentist tomorrow. Objective BP 128/82 Pulse 66 Temp 36.4 C (97.5 F) (Tympanic) Resp 16 Wt 65.4 kg (144 lb 2.9 oz) SpO2 97% Physical Exam Vitals and nursing note reviewed. Constitutional: General: He is not in acute distress. Appearance: Normal appearance. He is not ill-appearing. HENT: Head: Normocephalic. Mouth/Throat: Mouth: Mucous membranes are moist. Comments: No obvious dental caries noted. No obvious sign of periodontal abscess. No swelling in the pharynx. Eyes: Conjunctiva/sclera: Conjunctivae normal. Cardiovascular: Rate and Rhythm: Normal rate and regular rhythm. Pulmonary: Effort: Pulmonary effort is normal. Breath sounds: Normal breath sounds. Musculoskeletal: General: Normal range of motion. Cervical back: Normal range of motion. Skin: General: Skin is warm and dry. Neurological: General: No focal deficit present. Mental Status: He is alert. Psychiatric: Mood and Affect: Mood normal. Behavior: Behavior normal. Assessment and Plan ASSESSMENT/PLAN: 1. Pain, dental - ICD9: 525.9, ICD10: K08.89 Patient will follow-up with dentistry tomorrow and arrange for an appointment. I did not see any need for antibiotic at this time and patient was comfortable with a prescription for naproxen. - NAPROXEN 500 MG TABLET Jess Bowen APRN.CNP Problem List Items Addressed This Visit None documented in this encounterUniversity [facility]als [facility]24 NoteHNO ID: [id number] Author: BENY GARNICA, DO Service: ? Author Type: Physician Type: Progress Notes Filed: 09/11/2023 14:25 Note Text: SERVICE DATE: September 11, 2023 PCP: Birdie Martinez MD, MD Subjective Patient ID: Ketan is a 18 year old male. Chief Complaint: Patient presents with: left wrist: 5 weeks 3 days post left wrist fracture Xray 09/11/2023 PAIN EVALUATION No data found in the last 1 encounters. HPI TREATMENTS PRIOR TO INITIAL CONSULT: Review of Systems There is no problem list on file for this patient. PAST MEDICAL HISTORY Diagnosis Date NEGATIVE MEDICAL HISTORY History reviewed. No pertinent surgical history. No family history on file. Social History Tobacco Use Smoking status: Never Passive exposure: Yes Smokeless tobacco: Never Tobacco comments: mom and step dad Vaping Use Vaping Use: Never used Substance Use Topics Alcohol use: Never Drug use: Never ALLERGIES No Known Allergies MEDICATIONS: cephALEXin (KEFLEX) 500 mg capsule Take 1 capsule by mouth three times daily. (Patient not taking: Reported on 06/30/2022) Allergies, medications, past surgical history, family history and past medical history were reviewed per this encounter. Objective Ortho Exam 7-year-old male alert oriented. No acute distress. Dilation of the left wrist and hand shows no significant pain with palpation along the radiocarpal junction or distal radial ulnar joint. There is normal range of motion in the wrist and hand with no restriction. No focal sensory neural deficits noted. The left wrist shows interval healing of the nondisplaced distal radial fracture Assessment/Plan ASSESSMENT Diagnosis (S52.572D) Closed -punch intra-articular fracture of distal radius, left, with routine healing, subsequent encounter (primary encounter diagnosis) No orders found for this visit on 09/11/23. PLAN May resume activity to tolerance-some degree of soreness and stiffness with activity due to immobilization FOLLOW-UP: No follow-ups on file. PRN SIGNATURE: Beny Garnica DO PATIENT NAME: Ketan Stewart DATE: September 11, 2023 TIME: 2:23 [facility]02-23-2024 History of Present illness Narrative* Beny Garnica V, DO - 09/11/2023 2:23 PM EST SERVICE DATE: September 11, 2023 PCP: Birdie Martinez MD, MD Subjective Patient ID: Ketan is a 18 year old male. Chief Complaint: Patient presents with: left wrist: 5 weeks 3 days post left wrist fracture Xray 09/11/2023 PAIN EVALUATION No data found in the last 1 encounters. HPI TREATMENTS PRIOR TO INITIAL CONSULT: Review of Systems There is no problem list on file for this patient. PAST MEDICAL HISTORY Diagnosis Date NEGATIVE MEDICAL HISTORY History reviewed. No pertinent surgical history. No family history on file. Social History Tobacco Use Smoking status: Never Passive exposure: Yes Smokeless tobacco: Never Tobacco comments: mom and step dad Vaping Use Vaping Use: Never used Substance Use Topics Alcohol use: Never Drug use: Never ALLERGIES No Known Allergies MEDICATIONS: cephALEXin (KEFLEX) 500 mg capsule Take 1 capsule by mouth three times daily. (Patient not taking: Reported on 06/30/2022) Allergies, medications, past surgical history, family history and past medical history were reviewed per this encounter. Objective Ortho Exam 7-year-old male alert oriented. No acute distress. Dilation of the left wrist and hand shows no significant pain with palpation along the radiocarpal junction or distal radial ulnar joint. There is normal range of motion in the wrist and hand with norestriction. No focal sensory neural deficits noted. The left wrist shows interval healing of the nondisplaced distal radial fracture Assessment/Plan ASSESSMENT Diagnosis (S52.572D) Closed -punch intra-articular fracture of distal radius, left, with routine healing, subsequent encounter (primary encounter diagnosis) No orders found for this visit on 09/11/23. PLAN May resume activity to tolerance-some degree of soreness and stiffness with activity due to immobilization FOLLOW-UP: No follow-ups on file. PRN SIGNATURE: Beny Garnica DO PATIENT NAME: Ketan Stewart DATE: September 11, 2023 TIME: 2:23 PM * Cherelle Alejandre RN - 09/11/2023 2:19 PM EST Patient presents with: left wrist: 5 weeks 3 days post left wrist fracture Xray 09/11/2023 Patient her for a follow up of a left wrist fracture. Dad is here with the patient today. Denies any pain. AMB ROOMING INTAKE FLOWSHEET DATA Cherelle Alejandre RN documented in this encounterUniversity Hospitals [facility]02-23-2024 NoteHNO ID: [id number] Author: CHERELLE ALEJANDRE RN Service: ? Author Type: Registered Nurse Type: Progress Notes Filed: 09/11/2023 14:25 Note Text: Patient presents with: left wrist: 5 weeks 3 days post left wrist fracture Xray 09/11/2023 Patient her for a follow up of a left wrist fracture. Dad is here with the patient today. Denies any pain. AMB ROOMING INTAKE FLOWSHEET DATA Cherelle Alejandre RNMart[facility]erry [facility]02-23-[facility] History of Present illness Narrative* Jean-Pierre Flores RT(R) - 09/11/2023 2:00 PM EST Radiology Service Progress Note PATIENT NAME: Ketan Stewart DATE OF SERVICE: September 11, 2023 TIME: 2:10 PM PATIENT IDENTITY VERIFICATION COMPLETED USING TWO (2) IDENTIFIERS: Name and Date of confirmedby patient verbally. FALL SCREENING: Has the patient had 2 falls in the last year or 1 fall with injury or currently using an Ambulatory Assistive Device (Walker, Cane, Wheelchair, Crutches, etc.)? No PATIENT GENDER DATA: Male PATIENT RELEVANT IMPLANT DATA REVIEWED: Yes PATIENT PRESENTS WITH AN IMPLANTABLE OR ATTACHED COOKER HELPER: No RADIOLOGY DEPARTMENT: General X-ray: Exam(s) Completed: Upper Extremity X- Ray(s): Wrist, left PERIPHERAL IV DATA: Not applicable SIGNED BY: RT Vita(Cara) September 11, 2023 2:10 PM documented in this encounterUniversity Hospitals Cleveland [facility] Center02-23-2024 NoteHNO ID: [id number] Author: JEAN-PIERRE FLORES RT(R) Service: ? Author Type: Patroller Type: Progress Notes Filed: 09/11/2023 14:16 Note Text: Radiology Service Progress Note PATIENT NAME: Ketan Stewart DATE OF SERVICE: September 11, 2023 TIME: 2:10 PM PATIENT IDENTITY VERIFICATION COMPLETED USING TWO (2) IDENTIFIERS: Name and Date of confirmed by patient verbally. FALL SCREENING: Has the patient had 2 falls in the last year or 1 fall with injury or currently using an Ambulatory Assistive Device (Walker, Cane, Wheelchair, Crutches, etc.)? No PATIENT GENDER DATA: Male PATIENT RELEVANT IMPLANT DATA REVIEWED: Yes PATIENT PRESENTS WITH AN IMPLANTABLE OR ATTACHED COOKER HELPER: No RADIOLOGY DEPARTMENT: General X-ray: Exam(s) Completed: Upper Extremity X-Ray(s): Wrist, left PERIPHERAL IV DATA: Not applicable SIGNED BY: RT Vita(R) September 11, 2023 2:10 [facility]02-09-2024 NoteHNO ID: [id number] Author: BENY GARNICA, DO Service: ? Author Type: Physician Type: Progress Notes Filed: 08/28/2023 15:04 Note Text: SERVICE DATE: August 28, 2023 PCP: Birdie Martinez MD, MD Subjective Patient ID: Ketan is a 18 year old male. Chief Complaint: Patient presents with: 3 weeks 3 days post left wrist fracture PAIN EVALUATION No data found in the last 1 encounters. HPI wrist feels good- no pain. Wearing cast as directed. Review of Systems There is no problem list on file for this patient. PAST MEDICAL HISTORY Diagnosis Date NEGATIVE MEDICAL HISTORY No past surgical history on file. No family history on file. Social History Tobacco Use Smoking status: Never Passive exposure: Yes Smokeless tobacco: Never Tobacco comments: mom and step dad Vaping Use Vaping Use: Never used Substance Use Topics Alcohol use: Never Drug use: Never ALLERGIES No Known Allergies MEDICATIONS: cephALEXin (KEFLEX) 500 mg capsule Take 1 capsule by mouth three times daily. (Patient not taking: Reported on 06/30/2022) Allergies, medications, past surgical history, family history and past medical history were reviewed per this encounter. Objective Ortho Exam Examination of left wrist out of cast. Mild stiffness with active and passive range of motion with wrist movement. Minimal tenderness with direct palpation over the distal radius. X-ray shows intra-articular fracture distal radius with routine healing Assessment/Plan ASSESSMENT Diagnosis Closed punch intra-articular fracture left distal radius with routine healing No orders found for this visit on 08/28/23. PLAN out of cast today- placed in a full wrist splint may remove for bedtime, gentle ROM exercises FOLLOW-UP: No follow-ups on file. 2 weeks SIGNATURE: Beny Garnica DO PATIENT NAME: Ketan Stewart DATE: August 28, 2023 TIME: 3:01 [facility]02-09-2024 History of Present illness Narrative* Beny Garnica V, DO - 08/28/2023 3:01 PM EST SERVICE DATE: August 28, 2023 PCP: Birdie Martinez MD, MD Subjective Patient ID: Ketan is a 18 year old male. Chief Complaint: Patient presents with: 3 weeks 3 days post left wrist fracture PAIN EVALUATION No data found in the last 1 encounters. HPI wrist feels good- no pain. Wearing cast as directed. Review of Systems There is no problem list on file for this patient. PAST MEDICAL HISTORY Diagnosis Date NEGATIVE MEDICAL HISTORY No past surgical history on file. No family history on file. Social History Tobacco Use Smoking status: Never Passive exposure: Yes Smokeless tobacco: Never Tobacco comments: mom and step dad Vaping Use Vaping Use: Never used Substance Use Topics Alcohol use: Never Drug use: Never ALLERGIES No Known Allergies MEDICATIONS: cephALEXin (KEFLEX) 500 mg capsule Take 1 capsule by mouth three times daily. (Patient not taking: Reported on 06/30/2022) Allergies, medications, past surgical history, family history and past medical history were reviewed per this encounter. Objective Ortho Exam Examination of left wrist out of cast. Mild stiffness with active and passive range of motion with wrist movement. Minimal tenderness with direct palpation over the distal radius. X-ray shows intra-articular fracture distal radius with routine healing Assessment/Plan ASSESSMENT Diagnosis Closed punch intra-articular fracture left distal radius with routine healing No orders found for this visit on 08/28/23. PLAN \out of cast today- placed in a full wrist splint may remove for bedtime, gentle ROM exercises FOLLOW-UP: No follow-ups on file. 2 weeks SIGNATURE: Beny Garnica DO PATIENT NAME: Ketan Stewart DATE: August 28, 2023 TIME: 3:01 PM * Belinda Roper Ma - 08/28/2023 2:36 PM EST AMB ROOMING INTAKE FLOWSHEET DATA Patient is 3 weeks 3 days post left distal radius fracture. He denies any pain. Arrives with cast completely intact. Cast was removed for new imaging today. documented in this encounterUniversity Hospitals [facility]02-09-2024 History of Present illness Narrative* Hung Coyne RT(R) - 08/28/2023 2:50 PM EST Radiology Service Progress Note PATIENT NAME: Ketan Stewart DATE OF SERVICE: August 28, 2023 TIME: 2:44 PM PATIENT IDENTITY VERIFICATION COMPLETED USING TWO (2) IDENTIFIERS: Name and Date of confirmedby patient verbally. FALL SCREENING: Has the patient had 2 falls in the last year or 1 fall with injury or currently using an Ambulatory Assistive Device (Walker, Cane, Wheelchair, Crutches, etc.)? No PATIENT GENDER DATA: Male PATIENT RELEVANT IMPLANT DATA REVIEWED: Yes PATIENT PRESENTS WITH AN IMPLANTABLE OR ATTACHED COOKER HELPER: No RADIOLOGY DEPARTMENT: General X-ray: Exam(s) Completed: Upper Extremity X- Ray(s): Wrist, left PERIPHERAL IV DATA: Not applicable SIGNED BY: NICKY Vásquez) August 28, 2023 2:44 PM documented in this encounterUniversity Hospitals [facility] Center02-09-2024 NoteHNO ID: [id number] Author: HUNG COYNE RT(R) Service: Radiology Author Type: Technologist Type: Progress Notes Filed: 08/28/2023 14:52 Note Text: Radiology Service Progress Note PATIENT NAME: Ketan Stewart DATE OF SERVICE: August 28, 2023 TIME: 2:44 PM PATIENT IDENTITY VERIFICATION COMPLETED USING TWO (2) IDENTIFIERS: Name and Date of confirmed by patient verbally. FALL SCREENING: Has the patient had 2 falls in the last year or 1 fall with injury or currently using an Ambulatory Assistive Device (Walker, Cane, Wheelchair, Crutches, etc.)? No PATIENT GENDER DATA: Male PATIENT RELEVANT IMPLANT DATA REVIEWED: Yes PATIENT PRESENTS WITH AN IMPLANTABLE OR ATTACHED COOKER HELPER: No RADIOLOGY DEPARTMENT: General X-ray: Exam(s) Completed: Upper Extremity X-Ray(s): Wrist, left PERIPHERAL IV DATA: Not applicable SIGNED BY: RT Fahad(R) August 28, 2023 2:44 [facility]02-09-2024 NoteHNO ID: [id number] Author: ?, ?, ? Service: ? Author Type: ? Type: Progress Notes Filed: 08/28/2023 15:04 Note Text: AMB ROOMING INTAKE FLOWSHEET DATA Patient is 3 weeks 3 days post left distal radius fracture. He denies any pain. Arrives with cast completely intact. Cast was removed for new imaging today. [facility]01-19-2024 NoteHNO ID: [id number] Author: ?, ?, ? Service: ? Author Type: ? Type: Progress Notes Filed: 08/07/2023 14:46 Note Text: PT ASSESSMENT - CASTING ROOM Ketan presents for Application of cast. Applied short arm cast to Left wrist using 2 rolls of gortex and 1 roll of fiberglass. Patient tolerated well. Note given for work and appointment scheduled in 3 weeks. Patient has been instructed in Care of cast. Belinda Roper [facility]01-19-2024 NoteHNO ID: [id number] Author: BENY GARNICA, DO Service: ? Author Type: Physician Type: Progress Notes Filed: 08/07/2023 14:46 Note Text: SERVICE DATE: August 07, 2023 PCP: Birdie Martinez MD, MD Subjective Patient ID: Ketan is a 17 year old male. Chief Complaint: Patient presents with: Left distal radius fracture REF: Cole Cruz x-ray: 08/04/19 PAIN EVALUATION 08/07/2023 1357 Pain Level: 7 Pain Location: Wrist-Left Description: Throbbing Duration Amount of Time: 3 Duration Units: Days Frequency: Intermittent Intervention/Comfort measure: Splinting;Other: See comment sling HPI Fell on outstretched arm while playing basketball. Pain noted in the wrist region. He went to [facility] where he was x-rayed and found to have a nondisplaced intra-articular fracture of the distal radius. He has been in a soft splint at that time. Denies any numbness or tingling in the fingers or hand. TREATMENTS PRIOR TO INITIAL CONSULT: splint Review of Systems There is no problem list on file for this patient. PAST MEDICAL HISTORY Diagnosis Date NEGATIVE MEDICAL HISTORY History reviewed. No pertinent surgical history. No family history on file. Social History Tobacco Use Smoking status: Never Passive exposure: Yes Smokeless tobacco: Never Tobacco comments: mom and step dad Vaping Use Vaping Use: Never used Substance Use Topics Alcohol use: Never Drug use: Never ALLERGIES No Known Allergies MEDICATIONS: cephALEXin (KEFLEX) 500 mg capsule Take 1 capsule by mouth three times daily. (Patient not taking: Reported on 06/30/2022) Allergies, medications, past surgical history, family history and past medical history were reviewed per this encounter. Objective Ortho Exam evaluation of the left wrist and hand shows no significant redness or swelling. No focal sensory neural deficits noted. There is pain with palpation at the distal radial carpal junction. Strays positive for a small nondisplaced intra-articular fracture of the distal radius Assessment/Plan ASSESSMENT Diagnosis closed, intra-articular fracture left distal radius PLAN Short arm fiberglass cast applied Cast care instructions reviewed FOLLOW-UP: 4 weels. x-ray out of cast SIGNATURE: Beny Garnica DO PATIENT NAME: Ketan Stewart DATE: August 07, 2023 TIME: 2:09 [facility]01-19-2024 NoteHNO ID: [id number] Author: ?, ?, ? Service: ? Author Type: ? Type: Progress Notes Filed: 08/07/2023 14:46 Note Text: AMB ROOMING INTAKE FLOWSHEET DATA Pain Pain Level: 7 Pain Location: Wrist-Left Description: Throbbing Duration Amount of Time: 3 Duration Units: Days Frequency: Intermittent Intervention/Comfort measure: Splinting, Other: See comment (sling) Patient here today for left wrist fracture x 3 days. He states he was playing basketball and came down on someone else's foot awkwardly and twisted his ankle and put his hand out to catch himself. He is right hand dominant.[facility] History of Present illness Narrative* Cleo Faust RT(R) - 08/04/2023 9:10 AM EST Radiology Service Progress Note PATIENT NAME: Ketan Stewart DATE OF SERVICE: August 04, 2023 TIME: 9:01 AM PATIENT IDENTITY VERIFICATION COMPLETED USING TWO (2) IDENTIFIERS: Name and Date of confirmedby patient verbally. FALL SCREENING: Has the patient had 2 falls in the last year or 1 fall with injury or currently using an Ambulatory Assistive Device (Walker, Cane, Wheelchair, Crutches, etc.)? No PATIENT GENDER DATA: Male PATIENT RELEVANT IMPLANT DATA REVIEWED: Not Applicable RADIOLOGY DEPARTMENT: General X-ray: Exam(s) Completed: Lower Extremity X- Ray(s): Ankle, Left PERIPHERAL IV DATA: Not applicable SIGNED BY: RT Rojas(R) August 04, 2023 9:01 AM documented in this encounterUniversity Hospitals [facility] Center01-16-2024 NoteHNO ID: [id number] Author: CLEO FAUST RT(Cara) Service: Radiology Author Type: Technologist Type: Progress Notes Filed: 08/04/2023 09:06 Note Text: Radiology Service Progress Note PATIENT NAME: Ketan Stewart DATE OF SERVICE: August 04, 2023 TIME: 9:01 AM PATIENT IDENTITY VERIFICATION COMPLETED USING TWO (2) IDENTIFIERS: Name and Date of confirmed by patient verbally. FALL SCREENING: Has the patient had 2 falls in the last year or 1 fall with injury or currently using an Ambulatory Assistive Device (Walker, Cane, Wheelchair, Crutches, etc.)? No PATIENT GENDER DATA: Male PATIENT RELEVANT IMPLANT DATA REVIEWED: Not Applicable RADIOLOGY DEPARTMENT: General X-ray: Exam(s) Completed: Lower Extremity X-Ray(s): Ankle, Left PERIPHERAL IV DATA: Not applicable SIGNED BY: RT Rojas(R) August 04, 2023 9:01 [facility]01-16-2024 History of Present illness Narrative* Cleo Faust RT(R) - 08/04/2023 8:00 AM EST Radiology Service Progress Note PATIENT NAME: Ketan Stewart DATE OF SERVICE: August 04, 2023 TIME: 8:10 AM PATIENT IDENTITY VERIFICATION COMPLETED USING TWO (2) IDENTIFIERS: Name and Date of confirmedby patient verbally. FALL SCREENING: Has the patient had 2 falls in the last year or 1 fall with injury or currently using an Ambulatory Assistive Device (Walker, Cane, Wheelchair, Crutches, etc.)? No PATIENT GENDER DATA: Male PATIENT RELEVANT IMPLANT DATA REVIEWED: Not Applicable RADIOLOGY DEPARTMENT: General X-ray: Exam(s) Completed: Upper Extremity X- Ray(s): Wrist, left PERIPHERAL IV DATA: Not applicable SIGNED BY: RT Rojas(R) August 04, 2023 8:10 AM documented in this encounterUniversity Hospitals [facility] Center01-16-2024 NoteHNO ID: [id number] Author: CLEO FAUST RT(Cara) Service: Radiology Author Type: Technologist Type: Progress Notes Filed: 08/04/2023 08:17 Note Text: Radiology Service Progress Note PATIENT NAME: Ketan Stewart DATE OF SERVICE: August 04, 2023 TIME: 8:10 AM PATIENT IDENTITY VERIFICATION COMPLETED USING TWO (2) IDENTIFIERS: Name and Date of confirmed by patient verbally. FALL SCREENING: Has the patient had 2 falls in the last year or 1 fall with injury or currently using an Ambulatory Assistive Device (Walker, Cane, Wheelchair, Crutches, etc.)? No PATIENT GENDER DATA: Male PATIENT RELEVANT IMPLANT DATA REVIEWED: Not Applicable RADIOLOGY DEPARTMENT: General X-ray: Exam(s) Completed: Upper Extremity X-Ray(s): Wrist, left PERIPHERAL IV DATA: Not applicable SIGNED BY: RT Rojas(R) August 04, 2023 8:10 [facility]01-16-2024 NoteHNO ID: [id number] Author: BRYCE CRUZ PA-C Service: ? Author Type: Physician Community Health Advisor Type: Progress Notes Filed: 08/04/2023 10:13 Note Text: 08/04/2023 Patient presents with: Wrist/forearm Injury: Playing basketball, came down on wrist, 1 hour ago SUBJECTIVE: This is a 17 year old that is here today for Complaint(s) of left wrist injury x 1 hour ago. Patient was playing basketball this morning and tripped over another player's foot and landed catching himself on his left wrist. Possible on outstretched hand. + swelling and pain and concern for fracture. Notes some numbness in figner tips. Able to move fingers and can still feel sensation with fingers. Ankle pain- When he came down he rolled his left ankle and having some pain and swelling on the outside of the ankle. Denies numbness/tingling. He was able to ambulate into the visit. PAST MEDICAL HISTORY Diagnosis Date NEGATIVE MEDICAL HISTORY ALLERGIES Patient has no known allergies. MEDICATIONS Current Outpatient Medications Medication Sig cephALEXin (KEFLEX) 500 mg capsule Take 1 capsule by mouth three times daily. (Patient not taking: Reported on 06/30/2022) No current facility-administered medications for this visit. SOCIAL HISTORY Social History Tobacco Use Smoking status: Never Passive exposure: Yes Smokeless tobacco: Never Tobacco comments: mom and step dad REVIEW OF SYSTEMS See HPI OBJECTIVE: BP 135/78 Pulse 80 Temp 36.6 ?C (97.9 ?F) Resp 18 Wt 60.8 kg (134 lb) SpO2 100% APPEARANCE Well appearing, alert, in no acute distress, well-hydrated, well nourished. EXTREMITIES Normal exam of the right wrist. Left wrist - + edema over the distal radial aspect. Limited ROM with flexion and extension secondary to pain. + TTP over the distal radius. No TTP over ulnar aspect. Normal ROM digits. Sensation grosslyintact distal to injury. Good capillary refill with neurovascular status intact. No skin discoloration Amy radial pulses bilaterally. No TTP elbow, normal ROM. Left Ankle- normal ROM, pain with extension and flexion. + mild edema of the lateral malleolus. + TTP lateral malleolus. Strength intact. Neurovascular status intact distal to injury. Able to bear weight. No TTP base of the 5th metatarsal. No TTP over achilles. Left Wrist Xray Radiology report: Suspect nondisplaced intra-articular fracture of the distal radius. Patient placed in a sugar tong splint with sling applied. Neurovascular status reevaluated post splint placement-intact. ASSESSMENT/PLAN: 1. Wrist injury, left, initial encounter - ICD9: 959.3, ICD10: S69.92XA (primary diagnosis) See below-distal radius fracture - XR WRIST INJURY 4V PA/LAT/OBL/SCAPH LEFT 2. Other closed intra-articular fracture of distal end of left radius, initial encounter - ICD9: 813.42, ICD10: S52.572A Patient placed in a sugar tong splint with sling. Ice, elevation, rest, tylenol/motrin Consult to ortho scheduled for this Thursday. Reviewed red flags and when to seek care sooner. The patient indicates understanding of these issues and agrees with the plan. - CONSULT TO ORTHOPAEDICS 3. Left ankle injury, initial encounter - ICD9: 959.7, ICD10: S99.912A No obvious fracture. Suspect sprain Aircast applied. RICE, tylenol/motrin F/u in 7 days if not improving, sooner if worsening - XR ANKLE GENERAL 3V AP/LAT/OBL LEFT The patient indicates understanding of these issues and agrees with the plan. Bryce Cruz [facility]-C [facility] History of Present illness Narrative* Pasquale Lamas APRN.[employer] - 06/30/2022 4:00 PM EST Images from the original note were not included. Subjective HPI HPI Ketan Stewart is a 16 year old male who presents today for CC of right thumb injury, duringbasketball. This started 1 day ago. Has tried nothing for relief. Symptoms are worsened by rom of thumb. Denies history of surgery or injury to right thumb. Denies numbness and tingling of right thumb. .Patient presents with: Thumb Injury: right x 1 day playing basketball PAST MEDICAL HISTORY Diagnosis Date NEGATIVE MEDICAL HISTORY No past surgical history on file. ALLERGIES Patient has no known allergies. MEDICATIONS cephALEXin (KEFLEX) 500 mg capsule Take 1 capsule by mouth three times daily. (Patient not taking: Reported on 06/30/2022) No family history on file. Social History Tobacco Use Smoking status: Never Passive exposure: Yes Smokeless tobacco: Never Tobacco comments: mom and step dad ROS Objective Blood pressure 118/70, pulse 60, temperature 36.3 C (97.4 F), resp. rate 16, weight 61.7 kg (136 lb), SpO2 97 %. Physical Exam Constitutional: General: He is not in acute distress. Appearance: He is not toxic-appearing or diaphoretic. HENT: Head: Normocephalic and atraumatic. Pulmonary: Effort: Pulmonary effort is normal. No accessory muscle usage or respiratory distress. Musculoskeletal: Hands: Neurological: Mental Status: He is alert and oriented to person, place, and time. ASSESSMENT/PLAN: 1. Thumb injury, right, initial encounter - ICD9: 959.5, ICD10: S69.91XA Possible fracture, placed in splint Will refer to ortho Pain management discussed. - XR DIGIT GENERAL 3V FRONTAL/LAT/OBL RIGHT IMPRESSION: Punctate radiodensity is noted at the dorsal aspect of the distal RIGHT first metacarpal seen on lateral view. This may represent small fracture fragment and correlation with point tenderness at this site is recommended. Dictated by : JENSEN PERRIN MD - CONSULT TO ORTHOPAEDICS Pasquale Lamas APRN.BUTCH documented in this encounterUniversity [facility]als [facility]12-12-2022 History of Present illness Narrative* Hung Coyne RT(R) - 06/30/2022 4:00 PM EST Radiology Service Progress Note PATIENT NAME: Ketan Stewart DATE OF SERVICE: June 30, 2022 TIME: 3:55 PM PATIENT IDENTITY VERIFICATION COMPLETED USING TWO (2) IDENTIFIERS: Name and Date of confirmedby patient verbally. FALL SCREENING: Has the patient had 2 falls in the last year or 1 fall with injury or currently using an Ambulatory Assistive Device (Walker, Cane, Wheelchair, Crutches, etc.)? No PATIENT GENDER DATA: Male PATIENT RELEVANT IMPLANT DATA REVIEWED: Yes RADIOLOGY DEPARTMENT: General X-ray: Exam(s) Completed: Upper Extremity X- Ray(s): Fingers/Thumb, right PERIPHERAL IV DATA: Not applicable SIGNED BY: RT Fahad(Cara) June 30, 2022 3:55 PM documented in this encounterUniversity Hospitals [facility] Center08-30-2022 Instructions* Patient Instructions* Jakob Barreto - 03/18/2022 11:36 AM EDT Irrigate left foot daily with normal saline Apply topical antibiotic and band aide until healed Stay out of ponds or lakes until healed Use donut hole pad to offload area until healed If pain fails to improve, next step would be to get an ultrasound. documented in this encounterUniversity Hospitals [facility] Center08-30-2022 History of Present illness Narrative* Jakob Barreto - 03/18/2022 10:54 AM EDT Initial Podiatric Office Visit: Chief Complaint: This 16 year old male who presents with chief complaint:possible foreign body of left foot HPI Patient presents to clinic for evaluation of left foot Patient was on vacation about 3 weeks ago. He recalls stepping on a sand spur (splinter). He tried to get out and was able to extrude some particle He still has pain. He went to urgent care yesterday and he was referred here Xrays did not show any foreign body. It is expected he may have retained splinter. PAIN EVALUATION 03/18/2022 1043 Pain Level: 10 Pain Location: Foot-Left Description: Stabbing Duration Amount of Time: 4 Duration Units: Weeks Frequency: Intermittent Intervention/Comfort measure: Reposition;Relaxation No results found for: HBA1C PCP: Birdie Martinez MD PAST MEDICAL HISTORY Diagnosis Date NEGATIVE MEDICAL HISTORY No current outpatient medications on file. No current facility-administered medications for this visit. ALLERGIES No Known Allergies No past surgical history on file. No family history on file. Social History Tobacco Use Smoking status: Never Passive exposure: Yes Smokeless tobacco: Never Tobacco comments: mom and step dad REVIEW OF SYSTEMS GENERAL: Negative for Malaise, significant weight loss, fever RESPIRATORY: Negative for cough, wheezing and shortness of breath CARDIOVASCULAR: Negative for chest pain, leg swelling and palpitations GI: Negative for abdominal discomfort, blood in stools or black stools and change in bowel habits : Negative for dysuria, frequency and incontinence MUSCULOSKELETAL: Negative for joint pain or swelling, back pain, and muscle pain. SKIN: Negative for lesions, rash, and itching. HEMATOLOGY/LYMPHOLOGY Negative for prolonged bleeding, bruising easily, and swollen nodes. ENDOCRINE: Negative for cold or heat intolerance, polyuria, polydipsia and goiter. NEURO: negative Physical Exam: Constitutional: Pt is a well developed 16 year old male who is alert, oriented and cooperative Eyes: Following during examination. No redness or drainage. Respiratory: RR normal and nonlabored. Even breathing. No evidence of distress or shortness of breath. Psychology: Patient is engaged during conversation. Normal affect and mood. Does not appear depressed or anxious during encounter. Vascular: Dorsalis pedis and posterior tibial pulses palpable as left Capillary Fill time < 5 seconds to digits 1-5 left Skin temperature warm to warm proximal to distal left Hair growth present to digits Neurological: intact light touch/epicritic sensation left intact protective sensation no significant neurological deficits Dermatological: 2 mm puncture wound to left plantar 5th metatarsal with pain to palpation. Small splinter expressed upon debridement with very superficial abscess Musculoskeletal/Orthopaedic: Patient has pain to palpation of left 5th metatarsal Radiographs: 3 views left foot reviewed March 18, 2022: I have personally reviewed and interpretedthese XR myself: no foreign body detected ASSESSMENT: (M79.5) Foreign body (FB) in soft tissue (primary encounter diagnosis) PLAN: 1. History and physical examination performed. 2. XR reviewed with patient and interpreted today 3. On clinical exam, patient has + pain to palpation of plantar 5th metatarsal head of left foot with 2 mm puncture wound. We discussed possible foreign body. We discussed options not limited to monitoring vs doing bedside debridement vs taking patient to the operating room. I informed patient thatpending findings from bedside procedure, he may require ultrasound for further evaluation as xrays do not show foreign body. 4. Today, under sterile conditions, the left foot was injected with 3 cc of 1% lidocaine plain. Using a 15 blade and tissue nippers, the puncture wound was incised and debrided. A small splinter was removed. A small green colored fluid was expressed and cultured. Will start patient on antibiotic. Will have patient flush the wound daily and apply topical antibiotic. In addition, will have patient use donut hole pad to offload the foot until healed. 5. If pain persists, will recommend ultrasound for further assessment. Jakob Barreto DPM Podiatry [address] [place] [address] Dept: [phone] Dept * Vijaya Hagan RN - 03/18/2022 10:43 AM EDT AMB ROOMING INTAKE FLOWSHEET DATA Pain Pain Level: 10 Pain Location: Foot-Left Description: Stabbing Duration Amount of Time: 4 Duration Units: Weeks Frequency: Intermittent Intervention/Comfort measure: Reposition, Relaxation Patient presents with: Left Foot - New Patient, Foreign Body States he stepped on something 3-4 weeks ago when he was on vacation. Thought he removed it but is still having pain. documented in this encounterUniversity Hospitals [facility] Center08-29-2022 History of Present illness Narrative* Hung Coyne RT(R) - 03/17/2022 9:00 AM EDT Radiology Service Progress Note PATIENT NAME: Ketan Stewart DATE OF SERVICE: March 17, 2022 TIME: 9:20 AM PATIENT IDENTITY VERIFICATION COMPLETED USING TWO (2) IDENTIFIERS: Name and Date of confirmedby patient verbally. FALL SCREENING: Has the patient had 2 falls in the last year or 1 fall with injury or currently using an Ambulatory Assistive Device (Walker, Cane, Wheelchair, Crutches, etc.)? No PATIENT GENDER DATA: Male PATIENT RELEVANT IMPLANT DATA REVIEWED: Yes RADIOLOGY DEPARTMENT: General X-ray: Exam(s) Completed: Lower Extremity X- Ray(s): Foot, Left and Wt. Bearing PERIPHERAL IV DATA: Not applicable SIGNED BY: RT Fahad(R) March 17, 2022 9:20 AM documented in this encounterUniversity Hospitals [facility] Center08-29-2022 History of Present illness Narrative* Arron Acevedo MD - 03/17/2022 8:49 AM EDT Patient presents with: Foreign Body: L foot x1 month HPI: Left foot pain: Duration: Stepped on a sand spur on vacation about 1 month ago Location: bottom of the left foot at the 5th metatarsal head Character: sharp Radiation: No. Aggravating: walking Associated: pulled the spur out initially and got more out shortly afterward Pertinent negatives: Denies drainage, fever PAST MEDICAL HISTORY Diagnosis Date NEGATIVE MEDICAL HISTORY MEDICATIONS: No prescriptions on file. ALLERGIES: ALLERGIES No Known Allergies VITALS: BP 138/98 Pulse 77 Temp 36.6 C (97.9 F) Resp 18 Wt 59.9 kg (132 lb) SpO2 98% PE: Pleasant, in no acute distress. Accompanied by his father. Foot: left. 2mm hyperpigmented puncture inferior surface near the 5th metatarsal head with slight raised blanched swelling for a few mm around it. Tender to palpation but no palpable foreign body or fluctuance. No erythema. ASSESSMENT/PLAN: 1. Puncture wound of left foot, initial encounter - ICD9: 892.0, ICD10: S91.332A - XR FOOT GENERAL 3V AP/LAT/OBL LEFT - no foreign body visualized. - CONSULT TO PODIATRY for suspected non-radiopaque foreign body. Follow up with signs of infection such as increasing redness, increasing pain, swelling, purulent drainage, or fever/malaise. Arron Acevedo MD documented in [facility] encounterF[facility]* Diagnosis Puncture wound of left foot, initial encounter- Primary documented [facility] this encounter [facility]* Diagnosis Foreign body (FB) in soft tissue- Primary Residual foreign body in soft tissue documented in this encounter [facility]* Diagnosis Thumb injury, right, initial encounter- Primary documented in this encounter [facility]Eval[facility]* Diagnosis Closed -punch intra-articular fracture of distal radius, left, with routine healing, subsequent encounter- Primary documented in this encounter [facility]* Diagnosis Other closed intra-articular fracture of distal end of left radius, initial encounter documented [facility] this encounter [facility]* Diagnosis Closed -punch intra-articular fracture of distal radius, left, with routine healing, subsequent encounter- Primary documented in this encounter [facility]* Diagnosis Closed -punch intra-articular fracture of distal radius, left, with routine healing, subsequent encounter documented in this encounter [facility]* Diagnosis Pain, dental- Primary Unspecified disorder of the teeth and supporting structures documented in this encounter [facility] note* Diagnosis Wrist injury, left, initial encounter documented in this encounter [facility] note* Diagnosis Left ankle injury, initial encounter documented in this encounter [facility]* Diagnosis Sore throat- Primary Acute pharyngitis Headache, unspecified headache type Headache, unspecified headache type documented in this encounter [facility] note* Diagnosis Headache, unspecified headache type documented in this encounter [facility] note* Diagnosis Puncture wound of left foot, initial encounter documented in this encounter [facility] note* Diagnosis Pharyngitis, unspecified etiology- Primary Viral upper respiratory tract infection with cough Acute upper respiratory infections of unspecified site Acute otitis media, left Unspecified otitis media documented in this encounter [facility] noteNo assessment information availableWMercy Health West Hospital [facility] Phone[facility] Diagnostic Procedure Only (Urgent) - Closed Specialty Diagnoses / Procedures Referred By Vidal ramos Referred To Contact XR IMAGING Diagnoses Wrist injury, left, initial encounter Procedures XR WRIST INJURY 4V PA/LAT/OBL/SCAPH LEFT RADEX WRIST COMPLETE MINIMUM 3 VIEWS Bryce Cruz PA-C [address] [place] [address] Xr Imaging [id number] Referral ID Status Reason Start Date Expiration Date V isits Requested Visits Authorized [id number] Closed Auto-Generate d Referral 08/04/2023 09/02/2024 1 1 [facility] for referral (narrative)* Diagnostic Procedure Only (Urgent) - Closed Specialty Diagnoses / Procedures Referred By Contac t Referred To Contact XR IMAGING Diagnoses Left ankle injury, initial encounter Procedures XR ANKLE GENERAL 3V AP/LAT/OBL LEFT RADEX ANKLE COMPLETE MINIMUM 3 VIEWS Bryce Cruz PA-C [address] [place] [address] [place] [address] Referral ID Status Reason Start Date Expiration Date V isits Requested Visits Authorized [id number] Closed Auto-Generate d Referral 08/04/2023 09/02/2024 1 1 [facility] for referral (narrative)* Diagnostic Procedure Only (Urgent) - Closed Specialty Diagnoses / Procedures Referred By Contac t Referred To Contact XR IMAGING Diagnoses Puncture wound of left foot, initial encounter Procedures XR FOOT GENERAL 3V AP/LAT/OBL LEFT RADEX FOOT COMPLETE MINIMUM 3 VIEWS Arron Acevedo MD [address] [place] [address] [place] [address] Referral ID Status Reason Start Date Expiration Date V isits Requested Visits Authorized [id number] Closed Auto-Generate d Referral 03/17/2022 04/16/2023 1 1 [facility] for referral (narrative)No reason for referral information availableWMercy Health [facility] Hospital Work Phone[facility] N[facility]* Diagnostic Procedure Only (Routine) - Closed Specialty Diagnoses / Procedures Referred By Contac t Referred To Contact XR IMAGING Diagnoses Other closed intra-articular fracture of distal end of left radius, initial encounter Procedures XR WRIST GENERAL 3V PA/LAT/OBL LEFT RADEX WRIST COMPLETE MINIMUM 3 VIEWS Beny Garnica V DO [address] [place] [address] [place] [address] Referral ID Status Reason Start Date Expiration Date V isits Requested Visits Authorized [id number] Closed Auto-Generate d Referral 08/17/2023 09/15/2024 1 1 [facility] for visit Narrative* Diagnostic Procedure Only (Routine) - Closed Specialty Diagnoses / Procedures Referred By Contac t Referred To Contact XR IMAGING Diagnoses Closed -punch intra-articular fracture of distal radius, left, with routine healing, subsequent encounter Procedures XR WRIST GENERAL 3V PA/LAT/OBL LEFT RADEX WRIST COMPLETE MINIMUM 3 VIEWS Beny Garnica V, DO [address] [place] [address] [place] [address] Referral ID Status Reason Start Date Expiration Date V isits Requested Visits Authorized [id number] Closed Auto-Generate d Referral 09/02/2023 10/01/2024 1 1 [facility] for visit Narrative* Diagnostic Procedure Only (Urgent) - Closed Specialty Diagnoses / Procedures Referred By Contac t Referred To Contact XR IMAGING Diagnoses Wrist injury, left, initial encounter Procedures XR WRIST INJURY 4V PA/LAT/OBL/SCAPH LEFT RADEX WRIST COMPLETE MINIMUM 3 VIEWS Bryce Cruz PA-C [address] [place] [address] [place] [address] Referral ID Status Reason Start Date Expiration Date V isits Requested Visits Authorized [id number] Closed Auto-Generate d Referral 08/04/2023 09/02/2024 1 1 [facility] for visit Narrative* Diagnostic Procedure Only (Urgent) - Closed Specialty Diagnoses / Procedures Referred By Contac t Referred To Contact XR IMAGING Diagnoses Left ankle injury, initial encounter Procedures XR ANKLE GENERAL 3V AP/LAT/OBL LEFT RADEX ANKLE COMPLETE MINIMUM 3 VIEWS Bryce Cruz PA-C [address] [place] [address] [place] [address] Referral ID Status Reason Start Date Expiration Date V isits Requested Visits Authorized [id number] Closed Auto-Generate d Referral 08/04/2023 09/02/2024 1 1 [facility] for visit Narrative* Diagnostic Procedure Only (Urgent) - Closed Specialty Diagnoses / Procedures Referred By Contac t Referred To Contact XR IMAGING Diagnoses Thumb injury, right, initial encounter Procedures XR DIGIT GENERAL 3V FRONTAL/LAT/OBL RIGHT RADEX FINGR MINIMUM 2 VIEWS Pasquale Lamas APRN.[employer]Y ADVISOR [address] [place] [address] [place] [address] Referral ID Status Reason Start Date Expiration Date V isits Requested Visits Authorized [id number] Closed Auto-Generate d Referral 06/30/2022 07/30/2023 1 [facility] Diagnostic Procedure Only (Urgent) - Closed Specialty Diagnoses / Procedures Referred By Contac t Referred To Contact XR IMAGING Diagnoses Puncture wound of left foot, initial encounter Procedures XR FOOT GENERAL 3V AP/LAT/OBL LEFT RADEX FOOT COMPLETE MINIMUM 3 VIEWS Arron Acevedo MD [address] [place] [address] [place] [address] Referral ID Status Reason Start Date Expiration Date V isits Requested Visits Authorized [id number] Closed Auto-Generate d Referral 03/17/2022 04/16/2023 1 1 [facility] Reason for Referral Specialty Diagnoses / Procedures Referred By Contac t Referred To Contact Podiatry Diagnoses Puncture wound of left foot, initial encounter Procedures CONSULT TO PODIATRY OFFICE/OUTPATIENT [facility] 60-74 MINUTES Arron Acevedo MD [address] [place] [address] Referral ID Status Reason Start Date Expiration Date Visits Requested Visits Authorized [id number] Authorized PCP Requested Referral 03/17/2022 03/17/2023 1 1 Specialty Diagnoses / Procedures Referred By Contac t Referred To Contact XR IMAGING Diagnoses Puncture wound of left foot, initial encounter Procedures XR FOOT GENERAL 3V AP/LAT/OBL LEFT RADEX FOOT COMPLETE MINIMUM 3 VIEWS Arron Acevedo MD [address] [place] [address] Xr Imaging Referral ID Status Reason Start Date Expiration Date V isits Requested Visits Authorized [id number] Closed Auto-Generate d Referral 03/17/2022 04/16/2023 1 1 Specialty Diagnoses / Procedures Referred By Contac t Referred To Contact Orthopedics Diagnoses Thumb injury, right, initial encounter Procedures CONSULT TO ORTHOPAEDICS OFFICE/OUTPATIENT [facility] 60-74 MINUTES Pasquale Lamas APRN.CNP [address] [place] [address] Referral ID Status Reason Start Date Expiration Date Visits Requested Visits Authorized [id number] Authorized PCP Requested Referral 06/30/2023 1 1 Specialty Diagnoses / Procedures Referred By Contac t Referred To Contact XR IMAGING Diagnoses Thumb injury, right, initial encounter Procedures XR DIGIT GENERAL 3V FRONTAL/LAT/OBL RIGHT RADEX FINGR MINIMUM 2 VIEWS Pasquale Lamas APRN.[employer]Y ADVISOR [address] [place] [address] Xr Imaging Referral ID Status Reason Start Date Expiration Date V isits Requested Visits Authorized [id number] Closed Auto-Generate d Referral 06/30/2022 07/30/2023 1 1 Summary Purpose Family History No Family History Records FoundNo Family History Records FoundNo Family History Records FoundNo Family History Records Found Advance Directives No Advanced Directives Records Found Advance Directive Response Recorded Date/ Time Do you have a Healthcare Power of Nurse Companion? No January 17, 2025 12:58pm Chief Complaint and Reason for Visit Chief Complaint Admit Date SI January 17, 2025 12:03 pm Additional Source Comments Source Comments (unrecognize d section and content) In the event this informatio n is protected by the Federal Confidentiality of Alcohol and Drug Abuse Patient Records regulations: The Federal rules restrict any use of the information to criminally investigate or prosecute any alcohol or drug abuse patient.[facility] CenterIn the event this information is protected by the Federal Confidentiality of Alcohol and Drug Abuse Patient Records regulations: The Federal rules restrict any use of the information to criminally investigate or prosecute any alcohol or drug abuse patient.[facility] CenterIn the event this information is protected by the Federal Confidentiality of Alcohol and Drug Abuse Patient Records regulations: The Federal rules restrict any use of the information to criminally investigate or prosecute any alcohol or drug abuse patient.[facility] CenterIn the event this information is protected by the Federal Confidentiality of Alcohol and Drug Abuse Patient Records regulations: The Federal rules restrict any use of the information to criminally investigate or prosecute any alcohol or drug abuse patient.[facility] CenterIn the event this information is protected by the Federal Confidentiality of Alcohol and Drug Abuse Patient Records regulations: The Federal rules restrict any use of the information to criminally investigate or prosecute any alcohol or drug abuse patient.[facility] CenterIn the event this information is protected by the Federal Confidentiality of Alcohol and Drug Abuse Patient Records regulations: The Federal rules restrict any use of the information to criminally investigate or prosecute any alcohol or drug abuse patient.[facility] CenterIn the event this information is protected by the Federal Confidentiality of Alcohol and Drug Abuse Patient Records regulations: The Federal rules restrict any use of the information to criminally investigate or prosecute any alcohol or drug abuse patient.[facility] CenterIn the event this information is protected by the Federal Confidentiality of Alcohol and Drug Abuse Patient Records regulations: The Federal rules restrict any use of the information to criminally investigate or prosecute any alcohol or drug abuse patient.[facility] CenterIn the event this information is protected by the Federal Confidentiality of Alcohol and Drug Abuse Patient Records regulations: The Federal rules restrict any use of the information to criminally investigate or prosecute any alcohol or drug abuse patient.[facility] CenterIn the event this information is protected by the Federal Confidentiality of Alcohol and Drug Abuse Patient Records regulations: The Federal rules restrict any use of the information to criminally investigate or prosecute any alcohol or drug abuse patient.[facility] the event this information is protected by the Federal Confidentiality of Alcohol and Drug Abuse Patient Records regulations: The Federal rules restrict any use of the information to criminally investigate or prosecute any alcohol or drug abuse patient.[facility] CenterIn the event this information is protected by the Federal Confidentiality of Alcohol and Drug Abuse Patient Records regulations: The Federal rules restrict any use of the information to criminally investigate or prosecute any alcohol or drug abuse patient.[facility] CenterIn the event this information is protected by the Federal Confidentiality of Alcohol and Drug Abuse Patient Records regulations: The Federal rules restrict any use of the information to criminally investigate or prosecute any alcohol or drug abuse patient.[facility] CenterIn the event this information is protected by the Federal Confidentiality of Alcohol and Drug Abuse Patient Records regulations: The Federal rules restrict any use of the information to criminally investigate or prosecute any alcohol or drug abuse patient.[facility] CenterIn the event this information is protected by the Federal Confidentiality of Alcohol and Drug Abuse Patient Records regulations: The Federal rules restrict any use of the information to criminally investigate or prosecute any alcohol or drug abuse patient.[facility] CenterIn the event this information is protected by the Federal Confidentiality of Alcohol and Drug Abuse Patient Records regulations: The Federal rules restrict any use of the information to criminally investigate or prosecute any alcohol or drug abuse patient.[facility] Reason for Visit (unrecogniz ed section and content) Reason Comments Foreign Body L foot x1 month Reason Comments New Patient Foreign Body Reason Comments Thumb Injury right x 1 day playin g basketball Reason Comments 3 weeks 3 days post left wrist fracture Reason Comments left wrist 5 weeks 3 days post left wrist fractureXray 09/11/2023 Reason Comments Dental Problem Tooth pain x 4 days Reason Comments Headache X4 days, ST, stomach ache x today Reason Comments Results Reason Comments Cough headache, some conge stion and sore throat x 4 days Care Teams (unrecognized sec tion and content) Direct Mail Clerk Relationship Specialty Start Date End Date Birdie Martinez [address] [place], [place] [id number] PCP - General Pediatrics 07/31/14 Direct Mail Clerk Relationship Specialty Start Date End Date Birdie Martinez [address] [place] [address] PCP - General Pediatrics 07/31/14 Direct Mail Clerk Relationship Specialty Start Date End Date Birdie Martinez MD [address] [place] [address] PCP - General Pediatrics 07/31/14 Direct Mail Clerk Relationship Specialty Start Date End Date Birdie Martinez MD [address] [place] [address] PCP - General Pediatrics 07/31/14 Direct Mail Clerk Relationship Specialty Start Date End Date Birdie Martinez MD [address] [place] [address] PCP - General Pediatrics 07/31/14 Direct Mail Clerk Relationship Specialty Start Date End Date Birdie Martinez MD [address] [place] [address] PCP - General Pediatrics 07/31/14 Direct Mail Clerk Relationship Specialty Start Date End Date Birdie Martinez MD [address] [place] [address] PCP - General Pediatrics 07/31/14 Direct Mail Clerk Relationship Specialty Start Date End Date Birdie Martinez MD [address] [place] [address] PCP - General Pediatrics 07/31/14 Direct Mail Clerk Relationship Specialty Start Date End Date Birdie Martinez MD [address] [place] [address] PCP - General Pediatrics 07/31/14 Direct Mail Clerk Relationship Specialty Start Date End Date Birdie Martinez MD [address] [place] [address] PCP - General Pediatrics 07/31/14 Team Status: Active Member Role/Relationship Status Dates No Primary Care Physician Primary Care Provider Active Team Status: Inactive Member Role/Relationship Status Dates Nithin Galvin MD Emergency Provider Active Star t: January 17, 2025 End: January 17, 2025 No Primary Care Physician Primary Care Provider Active Start: January 17, 2025 End: January 17, 2025 (unrecognized sect ion and content) No Status Records FoundNo Status Records FoundNo Status Records FoundNo Status Records Found INFORMATION SOURCE (unrecogn ized section and content) DATE CREATED AUTHOR 09/16/2022 [facility] [place] DATE CREATED AUTHOR AUTHOR'S ORGANIZ ATION 05/04/2024 [place] DATE CREATED AUTHOR AUTHOR'S ORGANIZ ATION 05/26/2024 [facility] DATE CREATED AUTHOR AUTHOR'S ORGANIZ ATION 01/29/2025 [place] Goals (unrecognized section and content) Goals may be documented in a n alternate section FOR RECORDS PERTAINING TO PATIENTS WHO ARE OR HAVE BEEN ENROLLED IN A CHEMICAL DEPENDENCY/SUBSTANCEABUSE PROGRAM, SOME INFORMATION MAY BE OMITTED. This clinical summary was aggregated from multiple sources. Caution should be exercised in using it in the provision of clinical care. This summary normalizes information from multiple sources, and as a consequence, information in this document may materially change the coding, format and clinical context of patient data. In addition, data may be omitted in some cases. CLINICAL DECISIONS SHOULD BE BASED ON THE PRIMARY CLINICAL RECORDS. [employer] [facility]. provides no warranty or guarantee of the accuracy or completeness of information in this document.
--- NOTE | 2025-02-06 22:01 | CM.ED ---
Social work Called [facility] (ph: ) due to patient just being there. Spoke with Gayle who stated having no beds available tonight. Called [facility] (ph: ) and spoke with Leann who stated beds were available. Referral packet faxed (f: ). Return call received from [facility] and accepting information given for patient. Dual diagnosis unit Dr. Ambrose N2N: [phone], option 1 [place] slip faxed to [facility] per request. Doctor, nursing, and patient updated. Patient's parents were also bedside and updated. ETA: 90 minutes. Plan: [facility], pending transport. Merry Dutton, COOLER TENDER, BENDING MACHINE OPERATOR
== END 2025-02-06 23:12 ==
PROVIDERS: Emergency Provider Emergency Medicine; Visit Provider Emergency Medicine
DX: T43.212A Poisoning by selective serotonin and norepinephrine reuptake inhibitors, intentional self-harm, initial encounter (principal); T45.0X2A Poisoning by antiallergic and antiemetic drugs, intentional self-harm, initial encounter; R45.851 Suicidal ideations; F32.A Depression, unspecified; Z63.8 Other specified problems related to primary support group; Z79.899 Other long term (current) drug therapy
CPT/HCPCS: 80048; 80143; 80179; 80307; 82077; 85025; 93005; 99285; A4216